=== PATIENT | female | born 1945 | race Caucasian/White ===

== ENCOUNTER 2019-01-12 18:11 | Inpatient (IN) ==
[2019-01-12] MEDS ORDERED: Naloxone 0.4 MG/ML INJ IVP PRN (22:20)
[2019-01-12] MEDS ORDERED: traMADol 50 MG TABLET PO PRN (22:20)
[2019-01-12] MEDS ORDERED: Ondansetron 4 MG/2 ML VIAL IVP PRN (22:20)
[2019-01-12] MEDS ORDERED: Acetaminophen 325 MG TABLET PO PRN (22:20)
[2019-01-12 22:57] LABS: Hemoglobin 12.4 g/dL (11.5-15.4); Mean Corpuscular HGB Conc 31.8 g/dL (31.6-35.5); Mean Corpuscular Hemoglobin 29.3 pg (28.0-33.3); Mean Corpuscular Volume 92.2 fL (83.0-100.0); Platelet Count 317 K/mcL (140-400); Red Blood Count 4.23 M/mcL (3.82-4.97); Red Cell Distribution Width 12.3 % (11.5-14.5)
[2019-01-12 22:58] LABS: Basophils % 0.5 %; Eosinophils # 0.1 K/mcL (0.0-0.6); Eosinophils % 1.6 %; Immature Granulocytes % 0.2 % (0-4); Lymphocytes # 1.3 K/mcL (0.6-4.6); Lymphocytes % 14.9 %; Mean Platelet Volume 9.7 fL (9.4-12.4); Monocytes # 0.5 K/mcL (0.0-1.3); Neutrophils # 6.8 K/mcL (1.6-8.9); Segmented Neutrophils % 76.8 %
[2019-01-12 23:05] LABS: INR 1.2; Prothrombin Time 13.3 Seconds (9.4-12.1)
[2019-01-12] MEDS: *HR* OxyCODONE Immed Rel 5 MG TABLET PO PRN (23:11)
[2019-01-12 23:17] LABS: Alanine Aminotransferase 11 Units/L (7-52); Albumin 3.7 g/dL (3.5-5.7); Albumin/Globulin Ratio 1.2 (1.1-2.2); Alkaline Phosphatase 107 Units/L (34-104); Aspartate Amino Transferase 18 Units/L (13-39); BUN/Creatinine Ratio 23 (6-26); Bilirubin,Total 0.4 mg/dL (0.3-1.0); Blood Urea Nitrogen 12 mg/dL (8-23); Calcium 8.9 mg/dL (8.6-10.3); Carbon Dioxide 35 mEq/L (23-29); Chloride 97 mEq/L (98-107); Chol/HDL Ratio 3.8 (0-4.9); Cholesterol 161 mg/dL (< 200); Globulin 3.1 g/dL (2.4-3.5); Glucose 117 mg/dL (70-105); HDL Cholesterol 42 mg/dL (40-59); LDL Cholesterol,Calculated 102 mg/dL (0-99); Magnesium 1.9 mg/dL (1.6-2.6); Osmolality,Calculated 291 (280-300); Potassium 2.9 mEq/L (3.5-5.1); Sodium 140 mEq/L (136-145); Total Protein 6.8 g/dL (6.4-8.9); Triglycerides 87 mg/dL (< 150); eGFR For Non-African Americans > 60 (> 60)
[2019-01-12] MEDS: Levalbuterol Neb 1.25 MG/3 ML IH SCH (23:37)
[2019-01-13 00:52] LABS: Bilirubin,Urine Negative (Negative); Blood,Urine Trace (Negative); Clarity,Urine Cloudy (Clear); Color,Urine Yellow (Yellow); Glucose,Urine (UA) Normal (Normal); Ketones,Urine 40 mg/dL (Negative); Leukocyte Esterase,Urine Trace (Negative); Nitrite,Urine Negative (Negative); Protein,Urine Negative (Neg-Trace); Specific Gravity,Urine 1.019 (1.010-1.025); Urobilinogen,Urine Normal (Normal)
[2019-01-13 00:56] LABS: Bacteria,Urine Many per hpf (None-Few); Hyaline Casts,Urine None Seen per lpf (None-Few); Squamous Epithelial Cell,Urine Many per lpf (None-Few)
--- NOTE | 2019-01-13 01:17 | Internal Med History&Physical ---
Date of Encounter: 01/12/19 Time of Encounter: 21:30 Internal Medicine - H&P: HPI Chief complaint: Right hip pain Admitted From: Hospital to Hospital Transfer Plans for Post Hospital Care: Home History of present illness: Ms. Kirk is a 73 year old female w/PMH of HTN, neuropathy in bilateral LEs, and COPD presents from [facility] w/CC of right hip pain from fall sustained today while attempting to get out of the shower. Pt. states she tripped and fell on her right side. She denies LOC, being pre-syncopal, or dizzy/lightheaded. Fall occurred at approx. 10:00 a.m. No alleviating factors for the pain. Pt. reports O2 use at home w/nebulizer txs d/t COPD denies BiPAP/CPAP use. Pt. was former smoker who smoked 3 PPD up until 1 year ago. Patient denies history of falls, recent illness, fever, chills, nausea, vomiting, headache, changes in vision, unusual bleeding, chest pain, shortness of breath, cough, chest congestion, abdominal pain, diarrhea, constipation, dizziness, lightheadedness, numbness, tingling, pre-syncope, or syncope. Past Med Surg Social Fam HX - Past Medical History Source: patient, old records reviewed Medical history: COPD, hypertension Additional medical history: back pain Psychiatric history: no psych history - Past Surgical History Surgical History: cholecystectomy, hysterectomy - Social History Smoking Status: Former smoker Packs per day: 3 PPD - Reports quitting 1 year ago Smokeless Tobacco Status: No Alcohol use: none Drug use: none Current living situation: Home, With Family Activity Level: Independent ambulation Recent Out of Country Travel Within the Last 8 Weeks: No Exposure or Possible Exposure to Illness During Travel: No - Family History Father Name: caroline Race: Family Member Ethnicity: Non- Living Status: Age at : 56 Cause of : Broken neck Hx Family Musculoskeletal Disorders: Yes (RA) Mother History Unknown: Yes Race: Family Member Ethnicity: Non- Brother History Unknown: Yes Race: Family Member Ethnicity: Non- Living Status: Still Living Sister Race: Family Member Ethnicity: Non- Living Status: Still Living Hx Family Neurologic Disorders: Yes (Neuropathy in LEs) Internal Medicine - H&P: Meds Allergy/AdvReac Type Severity Reaction Status Date / Time No Known Allergies Allergy Verified 10/11/16 09:43 All Systems PM: A 10-system review of systems was performed and is negative for pertinent findings except as documented above in the HPI. - Constitutional Constitutional: as per HPI, no chills, no fever(s), no night sweats - EENT Eyes: no change in vision, no discharge, no pain, no photophobia Ears: no ear discharge, no ear pain, no tinnitus Nose, mouth and throat: no dysphagia, no nasal discharge, no neck pain, no sore throat - Breasts Breasts: as per HPI - Cardiovascular Cardiovascular ROS IM: as per HPI, dyspnea (R/t COPD), no chest pain, no diaph oresis, no lightheadedness, no palpitations, no syncope - Respiratory Respiratory: as per HPI, dyspnea, no cough, no wheezing, no excessive phlegm production - Gastrointestinal Gastrointestinal: no abdominal pain, no diarrhea, no hematemesis, no hematochezia, no melena, no nausea, no vomiting - Genitourinary Genitourinary: no change in urinary stream, no dysuria, no flank pain, no hematuria Menstruation: as per HPI, post hysterectomy - Musculoskeletal Musculoskeletal ROS IM: no numbness, no tingling - Integumentary Integumentary IM: no rash, no unusual bruising - Neurological Neurological ROS: no confusion, no convulsions, no focal weakness, no numbness, no tingling, no tremor(s) - Psychiatric Psychiatric: as per HPI - Endocrine Endocrine IM: as per HPI - Hematologic/Lymphatic Hematologic/Lymphatic: no easy bruising - Allergic/Immunologic Allergic/Immunologic: as per HPI - Constitutional Vitals: Temp Pulse Resp BP Pulse Ox 98.5 F 98 16 159/89 92 01/12/19 21:32 01/12/19 21:32 01/12/19 21:32 01/12/19 21:32 01/12/19 21:32 General appearance: Present: cooperative, mild distress (Right hip pain), A&O X 3, pleasant, obese, answers questions appropriately Exam: Patient examined at bedside. Pt. resting in bed reporting mild pain in right hip r/t fall sustained today. Denies falls hx. Pt. denies any other sx or complaints at this time. VS: 98.5F temp, HR 98, RR 16, BP 159/89, SPO2 92% on 2 L via nasal cannula. - Head Head exam: Present: atraumatic, normocephalic - Eye Eye exam: Present: PERRL, conjuntiva pink, sclera anicteric Pupils: Present: PERRL - ENT ENT exam: Present: normal exam - Neck Neck exam general surgery: Present: normal inspection, supple, trachea midline. Absent: lymphadenopathy - Respiratory Respiratory exam: Present: CTAB. Absent: accessory muscle use, rales, rhonchi, wheezes - Cardiovascular Cardiovascular exam: Present: RRR, +S1, +S2. Absent: diastolic murmur, gallop, rubs, systolic murmur - GI/Abdominal GI/Abdominal exam: Present: normal bowel sounds, soft, no peritoneal signs. Absent: distended, tenderness - Rectal Rectal exam: Present: deferred - Additional comments: exam deferred. - Extremities Exam Extremities exam: Present: warm, radial pulses palpable and symmetrical. Absent: calf tenderness, cyanotic, pedal edema - Back Exam Back exam: Present: normal inspection - Neurological Exam Neurological exam: Present: alert, CN II-XII intact, oriented X3, no focal deficits. Absent: pronater drift, facial droop, speech deficit - Psychiatric Psychiatric exam: Present: normal affect, normal mood - Skin Skin exam: Present: dry, intact Internal Med - H&P Results - Labs CBC & Chem 7: 01/12/19 22:46 01/12/19 22:46 Labs: Short CBC 01/12/19 Range/Units 22:46 WBC 8.8 (4.3-11.1) K/mcL Hgb 12.4 (11.5-15.4) g/dL Hct 39.0 (35.3-44.9) % Plt Count 317 (140-400) K/mcL Neutrophils # 6.8 (1.6-8.9) K/mcL BMP 01/12/19 22:46 Sodium 140 Potassium 2.9 L Chloride 97 L Carbon Dioxide 35 H BUN 12 Creatinine 0.53 L Glucose 117 H Calcium 8.9 Liver Function 01/12/19 Range/Units 22:46 Total Bilirubin 0.4 (0.3-1.0) mg/dL AST 18 (13-39) Units/L ALT 11 (7-52) Units/L Alkaline Phosphatase 107 H (34-104) Units/L Albumin 3.7 (3.5-5.7) g/dL Urine 01/12/19 Range/Units 23:29 Urine Color Yellow (Yellow) Urine Clarity Cloudy A (Clear) Urine pH 6.0 (5.0-8.0) pH Units Ur Specific Pol[place] 1.019 (1.010-1.025) Urine Protein Negative (Neg-Trace) mg/dL Urine Glucose (UA) Normal (Normal) mg/dL - EKG Data EKG shows normal: sinus rhythm - EKG Data Prior EKG available for review: yes EKG comments: 01/13/19 01:27 EKG dated 01/12/19 at [place] shows sinus rhythm with atrial premature complex and minimal ST depression in anterolateral leads. EKG dated 01/12/19 at [facility] shows sinus rhythm with incomplete RBBB and moderate ST depression. - Impressions ITS Impressions Chest X-Ray 01/12/19 22:51 IMPRESSION: No acute abnormality D/ / Ed Oliver / Ed Oliver Interpreting Provider: Ed Oliver - Diagnostic Studies Chest x-ray Additional comments: Impressions Chest X-Ray 01/12/19 22:51 IMPRESSION: No acute abnormality D/ / Ed Oliver / Ed Oliver Interpreting Provider: Ed Oliver - Assessment and Plan (1) Right femoral fracture Current Visit: Yes Status: Acute Assessment and plan: Acute right femoral fx sustained today while attempting to get out of the shower. Pt. states she tripped and fell on her right side. She denies LOC, being pre-syncopal, or dizzy/lightheaded. Fall occurred at approx. 10:00 a.m. Imaging from [facility] today shows acute closed traumatic right femoral neck fracture with lateral displacement, overriding, and severe varus angulation. Hip joint space is preserved. Pt. reports mild pain in right hip. Stair-step pain medication for pain mgmt. Echocardiogram ordered stat for a.m. d/t pts. need for surgical clearance. EKG shows sinus rhythm with incomplete RBBB and moderate ST depression. Revised cardiac risk index for preoperative risk for this patient is 3.9% risk of , [place], or cardiac arrest paced on surgery not being high risk, no history of ischemic heart disease, no history of CHF, no history of cerebrovascular disease, and no preoperative treatment with insulin, and no preoperative creatinine greater than 2 mg/dL. NPO. Bed Rest. PT/OT consults ordered for rehabilitation assessment. Ortho consult ordered and discussed w/Dr. Saunders w/plan for surgical intervention in a.m. following Echocardiogram and I appreciate the consult and recommendations. Pt. is moderate risk for further morbidity and complications based on current rt. femoral fx, former smoker, HTN, HLD, COPD, obesity, and age. Inpatient. Qualifiers: Encounter type: initial encounter Femur location: base of neck Fracture type: closed Qualified Code(s): S72.041A - Displaced fracture of base of neck of right femur, initial encounter for closed fracture (2) HTN (hypertension) Current Visit: Yes Status: Chronic Assessment and plan: Hx of chronic HTN. Monitor pt. and VS. Continue pts. Losartan when reconciled. IVP hydralazine 10 mg every 6 hours when necessary with parameters in the meantime. Qualifiers: Hypertension type: essential hypertension Qualified Code(s): I10 - Essential (primary) hypertension (3) Neuropathy Current Visit: Yes Status: Chronic Assessment and plan: Hx of bilateral neuropathy in bilateral LEs. Pt. does not currently take medication for this. One-time order for Zanaflex placed to reduce muscle spasms r/t hip fx. Stair-step pain medications ordered for pain mgmt. (4) COPD (chronic obstructive pulmonary disease) Current Visit: Yes Status: Chronic Assessment and plan: Hx of chronic COPD. Stable. Xopenex IH 1.25 Q6HR. Supplemental O2 w/titration and SpO2 monitoring. Qualifiers: COPD type: emphysema Emphysema type: unspecified Qualified Code(s): J43.9 - Emphysema, unspecified (5) DVT prophylaxis Current Visit: Yes Status: Acute Assessment and plan: Bilateral SCDs on LEs for DVT prophylaxis d/t planned surgery in the a.m. - Time Spent With Patient Total time spent is greater than 50% in coordination of care (as documented) at patient's floor/unit and/or counseling patient: Greater than 35 minutes
[2019-01-13] MEDS ORDERED: tiZANidine 4 MG TABLET PO ONE (01:35)
[2019-01-13] MEDS: Levalbuterol Neb 1.25 MG/3 ML IH SCH ×2 (03:59→11:07)
[2019-01-13] MEDS: *HR* OxyCODONE Immed Rel 5 MG TABLET PO PRN (06:39)
[2019-01-13] MEDS ORDERED: Potassium Chloride 40 MEQ, Lidocaine 1% 2 ML in D5% in Water 500 ML IVPB ONE (07:37)
[2019-01-13] MEDS ORDERED: Perflutren Lipid Microsphere 1.3 ML in 0.9 % Sodium Chloride 8.7 ML IVP ONE (08:05)
--- NOTE | 2019-01-13 09:29 | Anesthesia Evaluation PreOp ---
Date of Encounter: 01/13/19 Time of Encounter: 09:38 - Past History Planned Operation: R-Otilio Hip Cardiac History: HTN, Hyperlipidemia Pulmonary History: Former smoker (3ppd until 1 year ago), COPD [employer]PER[employer] History: Other (BLE Neuropathy. + mild Dementia) Other Medical History: Denies Any Significant HX Anesthesia History: No Prior Anesthetic Complications, Past Anesthesia (Nelly, Hyster, R-shoulder) Alcohol Use: none Drug use: none Medications and Allergies Allergy/AdvReac Type Severity Reaction Status Date / Time No Known Allergies Allergy Verified 10/11/16 09:43 - Meds/Allergy Pre-op Review Medications Reviewed: Yes Allergies Reviewed: Yes Beta Blockers on Current Med List: No Anesthesia Results - Labs 01/12/19 22:46 01/12/19 22:46 Impressions Chest X-Ray 01/12/19 22:51 IMPRESSION: No acute abnormality D/ / Ed Oliver / Ed Oliver Interpreting Provider: Ed Oliver Laboratory Results - Imaging Additional studies: ECHO 01/13/2019 - EV/EV echocardiogram w enhance Impressions: Technically sub-optimal due to poor echocardiographic windows. LVEF 60-65%. Normal left ventricular diastolic function. Mild concentric left ventricular hypertrophy. The right ventricle was not well visualized, normal right ventricular function. No obvious significant valvular dysfunction No evidence of pulmonary hypertension. Anesthesia Exam Vital Signs Temp Pulse Resp BP Pulse Ox 01/13/19 08:15 98.6 F 90 15 92 01/13/19 04:45 98.4 F 98 16 141/78 94 01/13/19 04:00 14 93 01/12/19 21:32 98.5 F 98 16 159/89 92 Intake and Output 01/12/19 01/13/19 01/13/19 23:59 07:59 15:59 Intake Total 0 / 0 Output Total 450 / 450 Balance -450 / -450 Intake: Oral 0 / 0 Output: Catheter 450 / 450 Other: Weight 79.9 kg Height: 5'6" Weight: 176# BMI = 28 NPO (# of Hours): MNOc - HEENT Pupil (Motor): Pupils equal, EOMI Mallampati: II Teeth: Edentulous Oral Opening: Greater than 3 - [employer] LOC: Oriented [employer] Motor: Normal RUE, Normal LUE, Normal LLE, Normal Face, Deficit RLE [employer] Sensory: Normal: RUE, LUE, RLE, LLE, Face - Cardiac Rhythm: Regular Murmur: None - Pulmonary Breath Sounds: bilateral Clear Respiratory Effort: Symmetrical Anesthesia Assess/Plan ASA Score: 3 (COPD, HTN, Neuropathy) Level of consciousness: Cooperative, Oriented, Tranquil Anesthetic Plan: General (GA as back up plan), Spinal Reason for No Neuroaxial/Regional Block: Patient refusal Monitoring Plan: Standard Monitors Recovery Plan: PACU Anes Supervising Prov Stmt: Pt seen/evaluated, R&B discussed, questions answered and consent obtained. Parviz Telles MD
--- NOTE | 2019-01-13 09:49 | Orthopedic Consult Note ---
Date of Encounter: 01/13/19 Time of Encounter: 09:44 Assessment and Plan (1) Right femoral fracture Current Visit: Yes Status: Acute I did have a long discussion with the patient regarding the diagnosis. She has a right displaced femoral neck fracture. My recommendation is for right hip hemiarthroplasty in order to stabilize the right hip, provide pain control, and help facilitate early mobilization. The risks discussed included but were not limited to stiffness, bleeding, infection, blood clots, damage to neurovascular structures, tendons, ligaments, and bone. Also discussed was the risk of continued symptoms and possible need for further procedures. She is aware the risk of dislocation, periprosthetic fracture, and prosthetic infection. I did discuss the anesthesia risks including stroke, heart attack, and . I did discuss the reasonable, foreseeable postoperative course with the patient. The patient did wish to proceed and consent was obtained. I have reviewed each of the pertinent components of this chart and any other pe rtinent medical component(s) including but not limited to pertinent application of the chief complaint, history of present illness, current medication, medical history, allergies, family history, medical history, surgical history, social history, review of systems, vital signs, and any other portion of the pertinent patient medical record directly or indirectly involved with this patient care that is pertinent based on my medical decision process. VAISHALI Cruz Qualifiers: Encounter type: initial encounter Femur location: base of neck Fracture type: closed Qualified Code(s): S72.041A - Displaced fracture of base of neck of right femur, initial encounter for closed fracture History of Present Illness HPI: Ms. Kirk is a 73 year old female admitted to [facility] after a fall that resulted in a right displaced femoral neck fracture. She was transferred from an outside facility. She complains of isolated sharp and achy pain localized to the right hip, worse with use and movement of the right hip and better with rest. No associated numbness, tingling, or any other associated signs or symptoms. She denies bilateral upper extremity pain and left lower extremity pain. Past Med Surg Social Fam HX - Past Medical History Medical history: COPD, hypertension Additional medical history: back pain Psychiatric history: no psych history - Past Surgical History Surgical History: cholecystectomy, hysterectomy - Social History Smoking Status: Former smoker Packs per day: 3 PPD - Reports quitting 1 year ago Smokeless Tobacco Status: No Alcohol use: none Drug use: none - Family History Father Name: caroline Race: Family Member Ethnicity: Non- Living Status: Age at : 56 Cause of : Broken neck Hx Family Musculoskeletal Disorders: Yes (RA) Mother History Unknown: Yes Race: Family Member Ethnicity: Non- Brother History Unknown: Yes Race: Family Member Ethnicity: Non- Living Status: Still Living Sister Race: Family Member Ethnicity: Non- Living Status: Still Living Hx Family Neurologic Disorders: Yes (Neuropathy in LEs) Medications and Allergies Allergy/AdvReac Type Severity Reaction Status Date / Time No Known Allergies Allergy Verified 10/11/16 09:43 All Systems Reviewed: Constitutional -The patient denies any fevers, chills, or feelings of illness Neurologic -The patient denies any numbness, tingling, or burning pains Physical Exam - Constitutional Vitals: Temp Pulse Resp BP Pulse Ox 98.6 F 90 15 141/78 92 01/13/19 08:15 01/13/19 08:15 01/13/19 08:15 01/13/19 04:45 01/13/19 08:15 Constitutional -Vitals reviewed -The patient is well developed and well nourished. -Mood is pleasant. -The patient is well groomed. Psychiatric -The patient is fully alert and oriented x 3. Respiratory: -Respiratory effort normal Abdomen: -Soft abdomen -Non tender -Non distended: Left upper extremity: -No deformities. The overlying skin is intact. No obvious signs of acute trauma. -No tenderness to palpation throughout. -No significant pain with passive motion of the shoulder, elbow, wrist, and fingers within the limits of the bed. -Able to make an "OK" sign, cross the index and long fingers, and extend the thumb. -Sensation grossly intact to light touch throughout the median, radial, and ulnar distributions. -Radial pulse is present; Fingers have good capillary refill. Right upper extremity: -No deformities. The overlying skin is intact. No obvious signs of acute trauma. -No tenderness to palpation throughout. -No significant pain with passive motion of the shoulder, elbow, wrist, and fingers within the limits of the bed. -Able to make an "OK" sign, cross the index and long fingers, and extend the thumb. -Sensation grossly intact to light touch throughout the median, radial, and ulnar distributions. -Radial pulse is present; Fingers have good capillary refill. Left lower extremity: -No deformities. The overlying skin is intact. No obvious signs of acute trauma. -No tenderness to palpation throughout. -No pain with passive motion of the hip, knee, ankle, and toes within the limits of the bed. -No pain with axial loading of the thigh. -Able to dorsiflex and plantarflex the ankle and toes. -Sensation is grossly intact to light touch throughout the sural, saphenous, superficial peroneal, and deep peroneal distributions. -Toes have good capillary refill. Right lower extremity: -The extremity is shortened and externally rotated. The overlying skin is intact. -There is tenderness in the groin region as well as the proximal lateral thigh. -I did not range the hip due to the known fracture. -No tenderness along the distal thigh, leg, ankle, foot, or toes. -Able to dorsiflex and plantarflex the ankle and toes. -Sensation is grossly intact to light touch throughout the sural, saphenous, superficial peroneal, and deep peroneal distributions. -Toes have good capillary refill. Diagnostic Imaging: I did personally review and interpret x-rays of the right hip show a displaced right femoral neck fracture. X-rays of the right knee show a well fixed total knee implant. Results - Labs Result Diagrams: 01/12/19 22:46 01/12/19 22:46 Labs: Abnormal lab results PT 13.3 Seconds (9.4-12.1) H 01/12/19 22:46 Potassium 2.9 mEq/L (3.5-5.1) L 01/12/19 22:46 Chloride 97 mEq/L (98-107) L 01/12/19 22:46 Carbon Dioxide 35 mEq/L (23-29) H 01/12/19 22:46 0.53 mg/dL (0.60-1.20) L 01/12/19 22:46 Glucose 117 mg/dL (70-105) H 01/12/19 22:46 107 Units/L (34-104) H 01/12/19 22:46 LDL Cholesterol, Calc 102 mg/dL (0-99) H 01/12/19 22:46 Cloudy (Clear) A 01/12/19 23:29 40 mg/dL (Negative) H 01/12/19 23:29 Trace (Negative) H 01/12/19 23:29 Ur Leukocyte Esterase Trace (Negative) H 01/12/19 23:29 5-15 per hpf (0-3) H 01/12/19 23:29 5-15 per hpf (0-3) H 01/12/19 23:29 Ur Squamous Epith Cells Many per lpf (None-Few) H 01/12/19 23:29 Many per hpf (None-Few) H 01/12/19 23:29 Ur Culture Indicated? YES (NO) A 01/12/19 23:29 H & H 01/12/19 Range/Units 22:46 Hgb 12.4 (11.5-15.4) g/dL Hct 39.0 (35.3-44.9) % All other labs normal. Consult Discharge Plan - Plan Referrals: Conrado Romo MD [Primary Care Provider] -
[2019-01-13] MEDS ORDERED: *HR* FentaNYL (PF) 100 MCG/2 ML VIAL ONE ×2 (10:46→12:37)
[2019-01-13] MEDS ORDERED: *HR* Propofol 200 MG/20 ML VIAL IVP ONE (10:46)
[2019-01-13] MEDS ORDERED: *HR* Succinylcholine 200 MG/10 ML VIAL IVP ONE (10:49)
[2019-01-13] MEDS ORDERED: Lidocaine -MPF 4% 5 ML AMPUL ONE (10:50)
[2019-01-13] MEDS ORDERED: Ondansetron 4 MG/2 ML VIAL ONE (10:51)
[2019-01-13] MEDS ORDERED: Dexamethasone 4 MG/ML VIAL ONE (10:51)
--- NOTE | 2019-01-13 11:07 | Internal Med Progress Note ---
Hospitalist Progress Note - Encounter Date of Encounter: 01/13/19 Time of Encounter: 10:15 - Subjective Interval History: Complains of right hip pain that is better controlled after medications. No chest pain, shortness of breath, cough, sputum production, fever/chills, nausea/vomiting, dysuria, urinary frequency, orthopnea, PND, or palpitation. No personal history of cardiac disease. - Exam Vitals: Temp Pulse Resp BP Pulse Ox 98.6 F 90 15 141/78 92 01/13/19 08:15 01/13/19 08:15 01/13/19 08:15 01/13/19 04:45 01/13/19 08:15 Exam: General: Alert and oriented, not in acute distress. Cardiovascular:Normal S1 & S2, No JVD. Pulse regular. Lungs: clear to auscultation, no wheezes/rales Abdomen:Soft, non-tender, no rigidity. Extremities: RLE shortened and externally rotated with tenderness along the right groin and lateral thigh regions. Neurovascular intact distally Neurological:Normal cognition and motor skills. Non-focal - Assessment and Plan (1) Right femoral fracture Current Visit: Yes Status: Acute Assessment and Plan: Following a mechanical fall, XR done at the OSH shows displaced R femoral neck fracture appreciate orthop input, for R hip hemiarthroplasty today. Keep NPO despite urinalysis findings, denies any symptoms of cystitis hence will hold off on abx on my end. Defer pre-op abx to ortho (2) HTN (hypertension) Current Visit: Yes Status: Chronic Assessment and Plan: resume home meds when reconciled. IVP hydralazine 10 mg every 6 hours when necessary with parameters in the meantime. (3) COPD (chronic obstructive pulmonary disease) Current Visit: Yes Status: Chronic Assessment and Plan: Hx of chronic COPD. not in exacerbation, chest x-ray without consolidation. PRN duoneb (4) Neuropathy Current Visit: Yes Status: Chronic (5) DVT prophylaxis Current Visit: Yes Status: Acute Assessment and Plan: SQ heparin post-operatively - Time Spent with Patient Total time spent is greater than 50% in coordination of care (as documented) at patient's floor/unit and/or counseling patient: 25 - 35 minutes Plan of Care Discussed with: patient Internal Medicine: Result - Labs CBC & Chem 7: 01/12/19 22:46 01/12/19 22:46 Labs: Short CBC 01/12/19 Range/Units 22:46 WBC 8.8 (4.3-11.1) K/mcL Hgb 12.4 (11.5-15.4) g/dL Hct 39.0 (35.3-44.9) % Plt Count 317 (140-400) K/mcL Neutrophils # 6.8 (1.6-8.9) K/mcL BMP 01/12/19 22:46 Sodium 140 Potassium 2.9 L Chloride 97 L Carbon Dioxide 35 H BUN 12 Creatinine 0.53 L Glucose 117 H Calcium 8.9 Liver Function 01/12/19 Range/Units 22:46 Total Bilirubin 0.4 (0.3-1.0) mg/dL AST 18 (13-39) Units/L ALT 11 (7-52) Units/L Alkaline Phosphatase 107 H (34-104) Units/L Albumin 3.7 (3.5-5.7) g/dL Urine 01/12/19 Range/Units 23:29 Urine Color Yellow (Yellow) Urine Clarity Cloudy A (Clear) Urine pH 6.0 (5.0-8.0) pH Units Ur Specific [place] 1.019 (1.010-1.025) Urine Protein Negative (Neg-Trace) mg/dL Urine Glucose (UA) Normal (Normal) mg/dL - ABG Interpretation ABG results: PT/INR, D-dimer PT 13.3 Seconds (9.4-12.1) H 01/12/19 22:46 - Impressions Impressions Chest X-Ray 01/12/19 22:51 IMPRESSION: No acute abnormality D/ / Ed Oliver / Ed Oliver Interpreting Provider: Ed Oliver Echocardiogram 01/13/19 22:18 Impressions: Technically sub-optimal due to poor echocardiographic windows. LVEF 60-65%. Normal left ventricular diastolic function. Mild concentric left ventricular hypertrophy. The right ventricle was not well visualized, normal right ventricular function. No obvious significant valvular dysfunction No evidence of pulmonary hypertension. Left Ventricular Wall Motion: Rest Echo Findings All wall segments showed normal motion. Findings: Study Quality * Technically sub-optimal due to poor echocardiographic windows. ECG Findings * Normal sinus rhythm. Left Ventricle * LVEF 60-65%. * Definity echo contrast was used. * Normal left ventricular diastolic function. * Normal LV chamber size and function. * Mild concentric left ventricular hypertrophy. Right Ventricle * The right ventricle was not well visualized, normal right ventricular function. Left Atrium * Normal left atrial size. Right Atrium * Normal right atrial size. Interatrial Septum * Interatrial septum not well evaluated. Aortic Valve * Aortic valve not well visualized. * No aortic regurgitation. * No aortic stenosis. Mitral Valve * No mitral regurgitation. * No mitral stenosis. * Mitral valve not well visualized. Tricuspid Valve * Tricuspid valve not well visualized. * Trace tricuspid regurgitation. * No tricuspid stenosis. * No evidence of pulmonary hypertension. Pulmonic Valve * Pulmonic valve is not well visualized. Aorta * Normally sized aortic root. Pericardium * The pericardium appears normal. IVC * Normal IVC dimensions and inspiratory collapse. Pulmonary Artery * Pulmonary artery not well visualized. Consult Discharge Plan - Plan Referrals: Conrado Romo MD [Primary Care Provider] - (1) Right femoral fracture Qualifiers: Encounter type: initial encounter Femur location: base of neck Fracture type: closed Qualified Code(s): S72.041A - Displaced fracture of base of neck of right femur, initial encounter for closed fracture (2) HTN (hypertension) Qualifiers: Hypertension type: essential hypertension Qualified Code(s): I10 - Essential (primary) hypertension (3) COPD (chronic obstructive pulmonary disease) Qualifiers: COPD type: emphysema Emphysema type: unspecified Qualified Code(s): J43.9 - Emphysema, unspecified
[2019-01-13] MEDS ORDERED: Ipratropium/Albuterol Neb 3 ML IH PRN ×2 (11:11→16:05)
[2019-01-13] MEDS ORDERED: CeFAZolin Syr 2,000MG/20 ML 2,000 MG/20 ML SYRINGE IVPB ONE (12:00)
[2019-01-13] MEDS ORDERED: Ethanol\\Acetic Acid\\Na Ace\\Ben 1,000 ML IRRIG.SOLN IR ONE (12:34)
[2019-01-13] MEDS ORDERED: Vancomycin 1,000 MG VIAL ONE (12:34)
[2019-01-13] MEDS ORDERED: Propofol 500 MG/50 ML INFUS..BTL ONE (12:38)
[2019-01-13] MEDS ORDERED: Acetaminophen IV 1,000 MG/100 ML INFUS..BTL ONE (12:52)
[2019-01-13] MEDS ORDERED: Acetaminophen IV 1,000 MG/100 ML INFUS..BTL IVPB ONE (13:25)
[2019-01-13] MEDS ORDERED: *HR* HYDROMORPHONE 2 MG/ML VIAL ONE (15:02)
[2019-01-13] MEDS ORDERED: *HR* HYDROmorphone 2 MG/ML SYRINGE ONE (15:29)
[2019-01-13] MEDS: *HR* HYDROmorphone 2 MG/ML SYRINGE IVP PRN ×2 (15:30→15:40)
[2019-01-13] MEDS ORDERED: Ondansetron 4 MG/2 ML VIAL IVP PRN (16:05)
[2019-01-13] MEDS ORDERED: Naloxone 0.4 MG/ML INJ IVP PRN (16:05)
[2019-01-13] MEDS ORDERED: Acetaminophen 325 MG TABLET PO PRN (16:05)
--- NOTE | 2019-01-13 16:50 | Anesthesia Evaluation Post Op ---
Date of Encounter: 01/13/19 Time of Encounter: 15:30 - Vital Signs Vital Signs: Vital Signs Temp Pulse Resp BP Pulse Ox 01/13/19 15:57 98.2 F 92 16 123/80 93 01/13/19 15:47 92 16 142/78 93 01/13/19 15:37 98.3 F 95 16 120/68 94 01/13/19 15:27 94 16 132/107 93 01/13/19 15:17 89 20 132/102 93 01/13/19 15:07 98.2 F 91 18 148/96 99 01/13/19 11:09 18 94 01/13/19 08:15 98.6 F 90 15 92 01/13/19 04:45 98.4 F 98 16 141/78 94 01/13/19 04:00 14 93 01/12/19 21:32 98.5 F 98 16 159/89 92 Intake and Output 01/13/19 01/13/19 01/13/19 07:59 15:59 23:59 Intake Total 120 / 120 Output Total 850 / 850 Balance -730 / -730 Intake: IV Fluids 120 / 120 Ofirmev 1,000 mg/100 ml 1,000 100 / 100 mg In 100 ml @ 400 mls/hr IVPB ONCE ONE Rx#:[id number] Ancef Syringe 2,000 MG/20 ML 2, 20 / 20 000 mg In 20 ml @ 200 mls/hr IVPB PREOP ONE Rx#:[id number] Oral 0 / 0 Output: Estimated Blood Loss 250 / 250 Urine Amount (Catheter) 150 / 150 Catheter 450 / 450 Other: Meal Breakfast Percent of Meal Consumed 0% - Lungs Lungs: Clear Ascult./Percussion - Airway Airway: Non-obstructed - Cardiovascular Regular Rate, Baseline Rhythm - Mental Status Mental Status: Alert & Oriented, Answers Appropriately - Pain Pain Scale: 3 Pain Scale used: Numeric (1 - 10) - Nausea Vomiting Nausea Vomiting: Not Present - Hydration Hydration: Ice chips, Lozano catheter - Discharge PostOp Status: Transfer Patient to floor Anes Supervising Prov Stmt: Pt seen/evaluated, VSS And has met criteria for discharge to floor. - MD Elfego
[2019-01-13] MEDS ORDERED: *HR* Promethazine 25 MG/ML VIAL IVP PRN (21:20)
--- NOTE | 2019-01-13 21:26 | Event Note ---
Date of Encounter: 01/13/19 Time of Encounter: 21:20 Patient has UTI. IVPB levaquin 750 mg daily ordered to start now for UTI infection. Zofran DCd d/t risk for QT prolongation. IVP Phenergan replaced for N/V. UTI infection. HR >90. Sepsis risk. Routine lactic acid ordered and will add IV fluids if lactic is elevated. Nurse instructed to continue monitoring the pt. very closely and alert me immediately of any adverse changes.
[2019-01-13] MEDS ORDERED: Levofloxacin 750 MG/150 ML 750 MG/150 ML BAG IVPB SCH (21:30)
[2019-01-14] MEDS ORDERED: Levofloxacin 750 MG/150 ML 750 MG/150 ML BAG IVPB SCH (03:00)
[2019-01-14 05:00] LABS: Hematocrit 33.8 % (35.3-44.9); Mean Corpuscular Hemoglobin 29.7 pg (28.0-33.3); Mean Corpuscular Volume 92.9 fL (83.0-100.0); Mean Platelet Volume 10.1 fL (9.4-12.4); Platelet Count 333 K/mcL (140-400); Red Blood Count 3.64 M/mcL (3.82-4.97); Red Cell Distribution Width 12.3 % (11.5-14.5)
[2019-01-14 05:01] LABS: Hemoglobin 10.8 g/dL (11.5-15.4)
[2019-01-14 05:23] LABS: BUN/Creatinine Ratio 30 (6-26); Blood Urea Nitrogen 14 mg/dL (8-23); Calcium 8.7 mg/dL (8.6-10.3); Carbon Dioxide 32 mEq/L (23-29); Chloride 99 mEq/L (98-107); Glucose 129 mg/dL (70-105); Osmolality,Calculated 294 (280-300); Potassium 3.2 mEq/L (3.5-5.1); Sodium 141 mEq/L (136-145); eGFR For Non-African Americans > 60 (> 60)
[2019-01-14] MEDS: Potassium Chloride Elixir 20 MEQ/15 ML UDC PO SCH ×2 (09:22→21:46)
[2019-01-14] MEDS: *HR* OxyCODONE Immed Rel 5 MG TABLET PO PRN ×2 (09:42→18:38)
--- NOTE | 2019-01-14 12:31 | Internal Med Progress Note ---
Hospitalist Progress Note - Encounter Date of Encounter: 01/14/19 Time of Encounter: 11:00 - Subjective Interval History: Underwent right hip hemiarthroplasty uneventfully yesterday. Denies any significant pain other than expected post-op discomfort over R hip. No chest pain, cough, or shortness of breath - Exam Vitals: Temp Pulse Resp BP Pulse Ox 98.2 F 92 17 118/72 95 01/14/19 10:10 01/14/19 10:10 01/14/19 10:10 01/14/19 10:10 01/14/19 10:10 Exam: General: Alert and oriented, not in acute distress. Cardiovascular:Normal S1 & S2, No JVD. Pulse regular. Lungs: clear to auscultation, no wheezes/rales Abdomen:Soft, non-tender, no rigidity. Extremities: R hip dressing c/d/i Neurological:Normal cognition and motor skills. Non-focal - Assessment and Plan (1) Right femoral fracture Current Visit: Yes Status: Acute Assessment and Plan: Following a mechanical fall, XR done at the OSH shows displaced R femoral neck fracture s/p R hip hemiarthroplasty, POD #1 despite urinalysis findings, denies any symptoms of cystitis but was started on levaquin overnight. Pt already received ancef as pre-op medicine and do not need any further abx especially when the suspicion for UTI is not high. Urine culture also -ve. D/c levaquin (2) HTN (hypertension) Current Visit: Yes Status: Chronic Assessment and Plan: normotensive without meds (3) COPD (chronic obstructive pulmonary disease) Current Visit: Yes Status: Chronic Assessment and Plan: Hx of chronic COPD. not in exacerbation, chest x-ray without consolidation. PRN duoneb (4) Neuropathy Current Visit: Yes Status: Chronic (5) DVT prophylaxis Current Visit: Yes Status: Acute Assessment and Plan: SQ hep - Time Spent with Patient Total time spent is greater than 50% in coordination of care (as documented) at patient's floor/unit and/or counseling patient: 25 - 35 minutes Plan of Care Discussed with: patient Internal Medicine: Result - Labs CBC & Chem 7: 01/14/19 04:17 01/14/19 04:17 Labs: Short CBC 01/14/19 Range/Units 04:17 WBC 9.7 (4.3-11.1) K/mcL Hgb 10.8 L D (11.5-15.4) g/dL Hct 33.8 L (35.3-44.9) % Plt Count 333 (140-400) K/mcL BMP 01/14/19 04:17 Sodium 141 Potassium 3.2 L Chloride 99 Carbon Dioxide 32 H BUN 14 Creatinine 0.46 L Glucose 129 H Calcium 8.7 - ABG Interpretation ABG results: PT/INR, D-dimer PT 13.3 Seconds (9.4-12.1) H 01/12/19 22:46 - Impressions Impressions Hip X-Ray 01/13/19 15:01 IMPRESSION: No acute complications status post right hip hemiarthroplasty. D/ / Gregorio Madrigal MD / Gregorio Madrigal MD Interpreting Provider: Gregorio Madrigal MD Consult Discharge Plan - Plan Referrals: Conrado Romo MD [Primary Care Provider] - (1) Right femoral fracture Qualifiers: Encounter type: initial encounter Femur location: base of neck Fracture type: closed Qualified Code(s): S72.041A - Displaced fracture of base of neck of right femur, initial encounter for closed fracture (2) HTN (hypertension) Qualifiers: Hypertension type: essential hypertension Qualified Code(s): I10 - Essential (primary) hypertension (3) COPD (chronic obstructive pulmonary disease) Qualifiers: COPD type: emphysema Emphysema type: unspecified Qualified Code(s): J43.9 - Emphysema, unspecified
[2019-01-14] MEDS: Aspirin Enteric Coated 325 MG Tablet PO SCH ×2 (15:25→21:45)
[2019-01-14] MEDS: *HR* Heparin 5,000 UNIT/ML VIAL SQ SCH (17:39)
--- NOTE | 2019-01-14 19:12 | Orthopedics Progress Note ---
Date of Encounter: 01/14/19 Time of Encounter: 09:00 - Assessment and Plan (1) Right femoral fracture Current Visit: Yes Status: Acute Subjective Interval history: S: Patient is seen today and has no complaints. O: Afebrile and vital signs are stable Operative extremity dressing is clean, dry, and intact. Neurovascularly intact distally A: Hip hemiarthroplasty P: Resume postoperative care Objective Vital signs: Vital Signs Temp Pulse Resp BP Pulse Ox 01/14/19 14:31 98.4 F 99 16 119/84 96 01/14/19 10:10 98.2 F 92 17 118/72 95 01/14/19 06:39 99.0 F 94 16 129/79 94 01/14/19 03:04 98.5 F 92 16 125/76 93 01/13/19 22:54 99.0 F 91 14 122/70 93 01/13/19 19:16 98.5 F 101 16 135/85 101 Intake and Output 01/14/19 01/14/19 01/14/19 07:59 15:59 23:59 Intake Total 150 / 150 0 / 150 Output Total 150 / 475 325 / 475 Balance 0 / -325 -325 / -325 Intake: IV Fluids 150 / 150 Levaquin Premix 750mg/150 mL 150 / 150 750 mg In 150 ml @ 100 mls/hr IVPB Q24H [facility] Rx#:[id number] Oral 0 / 0 0 / 0 Output: Catheter 150 / 475 325 / 475 Other: Meal Breakfast Percent of Meal Consumed 0% Stool Size Moderate Stool Consistency formed Stool Color Brown # Bowel Movements 1 Weight 80.86 kg Patient Weight 01/14/19 23:59 Weight 80.86 kg - Labs CBC & BMP: 01/14/19 04:17 01/14/19 04:17 Labs: Abnormal lab results RBC 3.64 M/mcL (3.82-4.97) L 01/14/19 04:17 Hgb 10.8 g/dL (11.5-15.4) L D 01/14/19 04:17 Hct 33.8 % (35.3-44.9) L 01/14/19 04:17 PT 13.3 Seconds (9.4-12.1) H 01/12/19 22:46 Potassium 3.2 mEq/L (3.5-5.1) L 01/14/19 04:17 Chloride 97 mEq/L (98-107) L 01/12/19 22:46 Carbon Dioxide 32 mEq/L (23-29) H 01/14/19 04:17 0.46 mg/dL (0.60-1.20) L 01/14/19 04:17 30 (6-26) H 01/14/19 04:17 Glucose 129 mg/dL (70-105) H 01/14/19 04:17 107 Units/L (34-104) H 01/12/19 22:46 LDL Cholesterol, Calc 102 mg/dL (0-99) H 01/12/19 22:46 Cloudy (Clear) A 01/12/19 23:29 40 mg/dL (Negative) H 01/12/19 23:29 Trace (Negative) H 01/12/19 23:29 Ur Leukocyte Esterase Trace (Negative) H 01/12/19 23:29 5-15 per hpf (0-3) H 01/12/19 23:29 5-15 per hpf (0-3) H 01/12/19 23:29 Ur Squamous Epith Cells Many per lpf (None-Few) H 01/12/19 23:29 Many per hpf (None-Few) H 01/12/19 23:29 Ur Culture Indicated? YES (NO) A 01/12/19 23:29 Consult Discharge Plan - Plan Referrals: Conrado Romo MD [Primary Care Provider] -
[2019-01-14] MEDS ORDERED: hydrOXYzine pamoate 25 MG CAPSULE PO PRN (21:19)
[2019-01-14] MEDS: traMADol 50 MG TABLET PO PRN (21:45)
[2019-01-14] MEDS: Famotidine 20 MG TABLET PO SCH (21:45)
[2019-01-14] MEDS: Gabapentin 300 MG CAPSULE PO SCH (21:46)
[2019-01-14] MEDS: Budesonide/Formoterol 80/4.5 MDI IH SCH (21:53)
--- NOTE | 2019-01-14 22:55 | Electrocardiograph Report ---
[place] [id number] Test Date: 2019-01-12 Pat Name: Cecilia Kirk Department: 114 Room: [facility] Gender: F Loftsman: JEFF : 1945 Requested By: Momo Timmons Order Number: [id number] Reading MD: Rema Belle Measurements Intervals [place] Rate: 95 P: 49 VT: 201 QRS: 11 QRSD: 93 T: 29 QT: 356 QTc: 408 Interpretive Statements SINUS RHYTHM INCOMPLETE RIGHT BUNDLE BRANCH BLOCK MODERATE ST DEPRESSION Electronically Signed On 01-14-2019 22:53:47 EDT by Rema Belle
[2019-01-15] MEDS: *HR* Heparin 5,000 UNIT/ML VIAL SQ SCH (06:16)
[2019-01-15 07:16] VITALS: BP 128/76
--- NOTE | 2019-01-15 07:29 | Orthopedics Progress Note ---
Date of Encounter: 01/15/19 Time of Encounter: : - Assessment and Plan (1) Right femoral fracture Current Visit: Yes Status: Acute Qualifiers: Encounter type: initial encounter Femur location: base of neck Fracture type: closed Qualified Code(s): S72.041A - Displaced fracture of base of neck of right femur, initial encounter for closed fracture Subjective Interval history: S: Patient is seen today and has no complaints. O: Afebrile and vital signs are stable Operative extremity dressing is clean, dry, and intact. Neurovascularly intact distally A: Hip hemiarthroplasty P: Resume postoperative care Discontinued the heparin We will resume aspirin 325 mg by mouth daily for DVT prophylaxis Objective Vital signs: Vital Signs Temp Pulse Resp BP Pulse Ox 01/15/19 07:00 98.8 F 83 16 128/76 95 01/15/19 03:49 99.1 F 86 17 136/78 93 01/14/19 23:17 99.9 F H 88 16 108/76 95 01/14/19 21:56 16 98 01/14/19 19:18 99.4 F 107 16 113/73 95 01/14/19 14:31 98.4 F 99 16 119/84 96 01/14/19 10:10 98.2 F 92 17 118/72 95 Intake and Output 01/14/19 01/14/19 01/15/19 15:59 23:59 07:59 Intake Total 0 / 150 100 / 100 Output Total 325 / 575 100 / 575 Balance -325 / -425 -100 / -425 100 / 100 Intake: Oral 0 / 0 100 / 100 Output: Urine 100 / 100 Catheter 325 / 475 Other: Meal Breakfast Percent of Meal Consumed 0% Stool Size Moderate Stool Consistency formed Stool Color Brown # Bowel Movements 1 Weight 80.7 kg Patient Weight 01/15/19 23:59 Weight 80.7 kg - Labs CBC & BMP: 01/14/19 04:17 01/14/19 04:17 Labs: Abnormal lab results RBC 3.64 M/mcL (3.82-4.97) L 01/14/19 04:17 Hgb 10.8 g/dL (11.5-15.4) L D 01/14/19 04:17 Hct 33.8 % (35.3-44.9) L 01/14/19 04:17 PT 13.3 Seconds (9.4-12.1) H 01/12/19 22:46 Potassium 3.2 mEq/L (3.5-5.1) L 01/14/19 04:17 Chloride 97 mEq/L (98-107) L 01/12/19 22:46 Carbon Dioxide 32 mEq/L (23-29) H 01/14/19 04:17 0.46 mg/dL (0.60-1.20) L 01/14/19 04:17 30 (6-26) H 01/14/19 04:17 Glucose 129 mg/dL (70-105) H 01/14/19 04:17 107 Units/L (34-104) H 01/12/19 22:46 LDL Cholesterol, Calc 102 mg/dL (0-99) H 01/12/19 22:46 Cloudy (Clear) A 01/12/19 23:29 40 mg/dL (Negative) H 01/12/19 23:29 Trace (Negative) H 01/12/19 23:29 Ur Leukocyte Esterase Trace (Negative) H 01/12/19 23:29 5-15 per hpf (0-3) H 01/12/19 23:29 5-15 per hpf (0-3) H 01/12/19 23:29 Ur Squamous Epith Cells Many per lpf (None-Few) H 01/12/19 23:29 Many per hpf (None-Few) H 01/12/19 23:29 Ur Culture Indicated? YES (NO) A 01/12/19 23:29 Consult Discharge Plan - Plan Additional Instructions: DISCHARGE INSTRUCTIONS Dr. Saunders Total Hip Replacement/Hip Hemiarthroplasty Wound Care -Change the dressing daily with ABD pads and either paper tape or Medipore tape. Activity -No heavy lifting objects greater than 10 pounds. -You may be weight-bear as tolerated on both of your lower extremities. -Use crutches or a walker for ambulation. -Posterior hip precautions for 6 weeks: No bending the hip past 90 degrees. Do not allow the leg to cross the midline of your body (adduction). No twisting motions. Ask your physical therapist to review these precautions with you. Reducing the Risk of Blood Clots -You will need to complete a total 4 week course of enteric coated aspirin 325 mg daily. -Wear knee high compression hose 23 hours per day. Discharge Pain Medications -Per the hospitalist Follow-Up -Follow-up with Dr. Saunders office in 2 weeks from the surgery date for a post- operative evaluation. -Call the office at [phone] to schedule or confirm your appointment. -Follow up with your primary care physician to discuss testing for bone mineral density. Referrals: Conrado Romo MD [Primary Care Provider] -
[2019-01-15 08:00] LABS: Hematocrit 32.4 % (35.3-44.9); Hemoglobin 9.9 g/dL (11.5-15.4); Mean Corpuscular HGB Conc 30.6 g/dL (31.6-35.5); Mean Corpuscular Hemoglobin 29.1 pg (28.0-33.3); Mean Corpuscular Volume 95.3 fL (83.0-100.0); Mean Platelet Volume 10.3 fL (9.4-12.4); Platelet Count 303 K/mcL (140-400); Red Cell Distribution Width 12.7 % (11.5-14.5)
[2019-01-15 08:53] LABS: BUN/Creatinine Ratio 38 (6-26); Blood Urea Nitrogen 18 mg/dL (8-23); Calcium 8.4 mg/dL (8.6-10.3); Carbon Dioxide 33 mEq/L (23-29); Chloride 102 mEq/L (98-107); Glucose 96 mg/dL (70-105); Osmolality,Calculated 294 (280-300); Potassium 3.7 mEq/L (3.5-5.1); Sodium 141 mEq/L (136-145); eGFR For Non-African Americans > 60 (> 60)
[2019-01-15] MEDS: Gabapentin 300 MG CAPSULE PO SCH (08:54)
[2019-01-15] MEDS: Famotidine 20 MG TABLET PO SCH (08:54)
[2019-01-15] MEDS: traMADol 50 MG TABLET PO PRN (08:55)
[2019-01-15] MEDS ORDERED: Furosemide 20 MG TABLET PO SCH (09:00)
[2019-01-15] MEDS ORDERED: Aspirin Enteric Coated 325 MG Tablet PO SCH (09:00)
--- NOTE | 2019-01-15 09:26 | Discharge Summary ---
Orders not resulted at time of discharge: Pending orders 01/13/19 14:34 Surgical Pathology [PTH] Routine 01/16/19 04:00 Basic Metabolic Panel AM 0400 Complete Blood Count w/o Diff [HEME] AM 0400 Date of Encounter: 01/15/19 Time of Encounter: 09:24 - Discharge Diagnosis (1) Right femoral fracture Priority: Primary Status: Acute Qualifiers: Encounter type: initial encounter Femur location: base of neck Fracture type: closed Qualified Code(s): S72.041A - Displaced fracture of base of neck of right femur, initial encounter for closed fracture (2) HTN (hypertension) Priority: Secondary Status: Chronic Qualifiers: Hypertension type: essential hypertension Qualified Code(s): I10 - Essential (primary) hypertension (3) Neuropathy Priority: Secondary Status: Chronic (4) COPD (chronic obstructive pulmonary disease) Priority: Secondary Status: Chronic Qualifiers: COPD type: emphysema Emphysema type: unspecified Qualified Code(s): J43.9 - Emphysema, unspecified Hospital course: Ms. Kirk is a 73 year old female Discharge discussed with: patient - Time Spent with Patient Total time spent providing and/or coordinating discharge services: Time spent: Greater than 30 minutes (35 minutes) - Discharge Medications Prescriptions: New Aspirin Enteric Coated [Aspirin EC] 325 mg PO DAILY tablet. OxyCODONFlor Immed Rel [Roxicodone 5 MG] 5 mg PO Q6HR PRN 7 Days #28 tablet PRN Reason: MOderate to severe pain Acetaminophen [Tylenol] 650 mg PO Q6HR PRN tablet PRN Reason: Mild Pain/Fever Docusate [Colace] 100 mg PO BID capsule Continued Albuterol Neb [Proventil Neb] 3 ml IH Q4H PRN PRN Reason: Shortness Of Breath Albuterol Sulfate [Ventolin Hfa] 2 puff PO Q4H PRN PRN Reason: Shortness Of Breath Budesonide/Formoterol 80/4.5 [Symbicort 80/4.5] 1 puff PO BID Calcium Carbonate/Vitamin D3 [Calcium 600-Vit D3 400 Tablet] 1 tab PO BID Furosemide [Lasix] 20 mg PO DAILY Gabapentin [Neurontin] 300 mg PO TID hydrOXYzine HCl [Hydroxyzine HCl] 25 mg PO Q6H PRN PRN Reason: Anxiety Losartan Potassium [Cozaar] 100 mg PO DAILY Omeprazole [PriLOSEC] 40 mg PO DAILY Ondansetron HCl [Zofran] 4 mg PO Q8H PRN PRN Reason: NAUSEA/VOMITING PARoxetine HCl [Paroxetine HCl] 40 mg PO DAILY Ranitidine HCl [Heartburn Relief] 150 mg PO BID Umeclidinium [place] [Incruse Ellipta] 1 puff PO DAILY Home Medications: Albuterol Neb [Proventil Neb] 3 ml IH Q4H PRN 01/14/19 [History] Albuterol Sulfate [Ventolin Hfa] 2 puff PO Q4H PRN 01/14/19 [History] Budesonide/Formoterol 80/4.5 [Symbicort 80/4.5] 1 puff PO BID 01/14/19 [History] Calcium Carbonate/Vitamin D3 [Calcium 600-Vit D3 400 Tablet] 1 tab PO BID 01/14/19 [History] Furosemide [Lasix] 20 mg PO DAILY 01/14/19 [History] Gabapentin [Neurontin] 300 mg PO TID 01/14/19 [History] Losartan Potassium [Cozaar] 100 mg PO DAILY 01/14/19 [History] Omeprazole [PriLOSEC] 40 mg PO DAILY 01/14/19 [History] Ondansetron HCl [Zofran] 4 mg PO Q8H PRN 01/14/19 [History] PARoxetine HCl [Paroxetine HCl] 40 mg PO DAILY 01/14/19 [History] Ranitidine HCl [Heartburn Relief] 150 mg PO BID 01/14/19 [History] Umeclidinium [place] [Incruse Ellipta] 1 puff PO DAILY 01/14/19 [History] hydrOXYzine HCl [Hydroxyzine HCl] 25 mg PO Q6H PRN 01/14/19 [History] Acetaminophen [Tylenol] 650 mg PO Q6HR PRN tablet 01/15/19 [Rx] Aspirin Enteric Coated [Aspirin EC] 325 mg PO DAILY tablet. 01/15/19 [Rx] Docusate [Colace] 100 mg PO BID capsule 01/15/19 [Rx] OxyCODONE Immed Rel [Roxicodone 5 MG] 5 mg PO Q6HR PRN 7 Days #28 tablet 01/15/19 [Rx] Allergies/Adverse Reactions: Allergy/AdvReac Type Severity Reaction Status Date / Time No Known Allergies Allergy Verified 01/14/19 18:03 Date of admission: 01/12/19 20:54 Primary care physician: Conrado Romo MD Consults: 01/12/19 22:04 Consult to Shop Hand [CONS] Routine Reason for SW Consult: possible placement and dc needs 01/12/19 22:24 Consult to Occupational Therapy [CONS] Routine Comment: Evaluate, develop and implement POC Reason for Consult: Patient fell when getting out of the shower and sustained right hip fx. Please assess patient post-surgery for ambulation strength, stability, safety, and possible rehabilitation/assistive needs for post-discharge planning. Does patient have active BEDREST order?: Yes Is patient medically & hemodynamically stable?: Yes Patient assessed for mobility or mobilized this visit?: No 01/12/19 22:26 Consult to Physical Therapy [CONS] Routine Comment: Evaluate, develop and implement POC Reason for Consult: Patient fell when getting out of the shower and sustained right hip fx. Please assess patient post-surgery for ambulation strength, stability, safety, and possible rehabilitation/assistive needs for post-discharge planning. Does patient have active BEDREST order?: Yes Is patient medically & hemodynamically stable?: Yes Patient assessed for mobility or mobilized this visit?: No 01/12/19 22:27 Consult to Nutrition [CONS] Routine Comment: CHOCOLATE BOOST OR ENSURE Consulting Provider: NUTRITION Reason for Dietary Consult: PO Supplementation 01/12/19 22:34 Consult to Orthopedic Surgery [CONS] Routine Consulting Provider: [facility]oped[facility] Reason for Consult: Patient sustained right femoral fx after falling when getting out of the shower. No recent cardiac w/u so Echocardiogram ordered for surgical clearance. Call Completed: Yes 01/13/19 16:05 Consult to Nurse Navigator [CONS] Routine Comment: ortho navigator Consult to Occupational Therapy [CONS] Routine Comment: Evaluate, develop and implement POC Reason for Consult: Hip leslye Does patient have active BEDREST order?: No Is patient medically & hemodynamically stable?: Yes Consult to Physical Therapy [CONS] Routine Comment: Evaluate, develop and implement POC Reason for Consult: total hip replacement Does patient have active BEDREST order?: No Is patient medically & hemodynamically stable?: Yes RT Post Op Consult [CONS] Routine Discharging clinician: Maverick G McCleese Anticipated date of discharge: 01/15/19 - Constitutional Vitals: Temp Pulse Resp BP Pulse Ox 98.8 F 83 16 128/76 95 01/15/19 07:00 01/15/19 07:00 01/15/19 07:00 01/15/19 07:00 01/15/19 07:00 General appearance: Present: cooperative, A&O X 3, pleasant, obese, answers questions appropriately Exam: . - Respiratory Respiratory exam: Present: CTAB. Absent: rales, rhonchi, wheezes - Cardiovascular Cardiovascular exam: Present: RRR. Absent: gallop, rubs, systolic murmur - Patient Status Disposition: Transfer SNF Condition: Fair Functional capacity at discharge: independent ambulation - Discharge Instructions Follow Up With: Conrado Romo MD [Primary Care Provider] - (1 week) Additional Instructions: DISCHARGE INSTRUCTIONS Dr. Saunders Total Hip Replacement/Hip Hemiarthroplasty Wound Care -Change the dressing daily with ABD pads and either paper tape or Medipore tape. Activity -No heavy lifting objects greater than 10 pounds. -You may be weight-bear as tolerated on both of your lower extremities. -Use crutches or a walker for ambulation. -Posterior hip precautions for 6 weeks: No bending the hip past 90 degrees. Do not allow the leg to cross the midline of your body (adduction). No twisting motions. Ask your physical therapist to review these precautions with you. Reducing the Risk of Blood Clots -You will need to complete a total 4 week course of enteric coated aspirin 325 mg daily. -Wear knee high compression hose 23 hours per day. Follow-Up -Follow-up with Dr. Saunders office in 2 weeks from the surgery date for a post- operative evaluation. -Call the office at [phone] to schedule or confirm your appointment. -Follow up with your primary care physician to discuss testing for bone mineral density. Please follow-up with your PCP as scheduled. Please resume your home medications. Please take pain medication as prescribed. - Diet and Activity Activity: as per physical therapy Diet: low salt diet
--- NOTE | 2019-01-15 09:33 | Physician Discharge Referral ---
ExtendedCare Referral Info Provider in Charge after Transfer: PCP Institutional Level of Care: Skilled - Diagnosis (1) Right femoral fracture Priority: Primary Status: Acute (2) HTN (hypertension) Priority: Secondary Status: Chronic (3) Neuropathy Priority: Secondary Status: Chronic (4) COPD (chronic obstructive pulmonary disease) Priority: Secondary Status: Chronic Prognosis: Good Aware of Diagnosis: Patient Aware of Prognosis: Patient - Transfer Medications Prescriptions: OxyCODONE Immed Rel [Roxicodone 5 MG] 5 mg PO Q6HR PRN 7 Days #28 tablet PRN Reason: MOderate to severe pain Home Medications: Albuterol Neb [Proventil Neb] 3 ml IH Q4H PRN 01/14/19 [History] Albuterol Sulfate [Ventolin Hfa] 2 puff PO Q4H PRN 01/14/19 [History] Budesonide/Formoterol 80/4.5 [Symbicort 80/4.5] 1 puff PO BID 01/14/19 [History] Calcium Carbonate/Vitamin D3 [Calcium 600-Vit D3 400 Tablet] 1 tab PO BID 01/14/19 [History] Furosemide [Lasix] 20 mg PO DAILY 01/14/19 [History] Gabapentin [Neurontin] 300 mg PO TID 01/14/19 [History] Losartan Potassium [Cozaar] 100 mg PO DAILY 01/14/19 [History] Omeprazole [PriLOSEC] 40 mg PO DAILY 01/14/19 [History] Ondansetron HCl [Zofran] 4 mg PO Q8H PRN 01/14/19 [History] PARoxetine HCl [Paroxetine HCl] 40 mg PO DAILY 01/14/19 [History] Ranitidine HCl [Heartburn Relief] 150 mg PO BID 01/14/19 [History] Umeclidinium [place] [Incruse Ellipta] 1 puff PO DAILY 01/14/19 [History] hydrOXYzine HCl [Hydroxyzine HCl] 25 mg PO Q6H PRN 01/14/19 [History] Acetaminophen [Tylenol] 650 mg PO Q6HR PRN tablet 01/15/19 [Rx] Aspirin Enteric Coated [Aspirin EC] 325 mg PO DAILY tablet. 01/15/19 [Rx] Docusate [Colace] 100 mg PO BID capsule 01/15/19 [Rx] OxyCODONE Immed Rel [Roxicodone 5 MG] 5 mg PO Q6HR PRN 7 Days #28 tablet 01/15/19 [Rx] Allergies/Adverse Reactions: Allergy/AdvReac Type Severity Reaction Status Date / Time No Known Allergies Allergy Verified 01/14/19 18:03 - Respiratory Orders None Smoking Cessation: Smoking cessation has been advised. For more information, call the [place] Tobacco Quit Line at 9-238-MWWD-NOW. - Advance Directives Code Status: Full Code - Mobility Orders Ambulate (per PT) - Rehabiliation Orders Rehab Orders: ROM Exercises, Evaluation for Physical Therapy, Evaluation for Occupational Therapy - Diet Orders Cardiac CERTIFICATION: I certify that the transfer of the above named patient to an Extended Care Facility is necessary for the continuing treatment of the diagnosis listed. The above information is true and accurate reflection of patient's current condition. Confidential - Redisclosure prohibited without a patient's written consent.
[2019-01-15] MEDS: Budesonide/Formoterol 80/4.5 MDI IH SCH (11:08)
--- NOTE | 2019-01-20 14:22 | Orthopedic Operative Note ---
Date of procedure: 01/13/19 Procedure: OPERATIVE REPORT DATE OF PROCEDURE: 01/13/2018 SURGEON: Adryan Saunders MD CATTLE BRANDER(S): There were no assistants PREOPERATIVE DIAGNOSIS: Right displaced femoral neck fracture POSTOPERATIVE DIAGNOSIS: Right displaced femoral neck fracture PROCEDURE: Right hip hemiarthroplasty ANESTHESIA: Gen. anesthesia SPECIMENS: Right femoral head IMPLANTS: Biomet Echo Fracture stem size 10mm; 51 mm bipolar head; 28 mm +3 head PREOPERATIVE NOTE AND INDICATIONS: The surgical plan was discussed with the patient. The risks, benefits, alternatives, and potential complications of this procedure were discussed with the patient including injury to veins, arteries, nerves, tendons, ligaments, and bone. Also discussed were the risks of infection, bleeding, pain, blood clots, the possible need for a blood transfusion, the possible need for further procedures, heart attack, stroke, and . Additional risks include prosthetic fracture dislocation and prosthetic infection. All of this was explained in simple terms, and the patient verbalized understanding and wished to proceed. Consent was given to proceed with surgery. PROCEDURE: The patient was seen in the preoperative holding area where the identify and the consent were confirmed. The right hip was marked. Final questions were answered. The patient was brought back to the operating room. A huddle was performed with the patient and all vital surgical team members confirming patient identity, the correct procedure, and the correct operative site. General anesthesia was administered. The patient was placed supine on the operating room table and then placed in the left lateral decubitus position. The axillary roll was placed and all bony prominences were padded. The right lower extremity was prepped and draped in the usual sterile fashion. A surgical time out was performed immediately preceding the incision with all personnel in the operating room to confirm patient identity, the correct operative site and extremity, correct radiographic studies, availability of appropriate surgical equipment, and agreement on the planned procedure. A 15 cm longitudinal curvilinear incision was made and dissection proceeded through the subcutaneous tissue using a Bovie for electrocautery. The fascia was encountered and incised splitting the fibers of the gluteus nain proximally. The Charnley retractor was placed. A Cobra was placed under the gluteus medius and the piriformis was taken down and tagged. While internally rotating the femur the short external rotators and the capsule was taken down in 1 sleeve. This exposed the fracture and an osteotomy was made 1 cm above the lesser trochanter. The femoral head was removed with a corkscrew. Pulvinar and the round ligament were debrided. The cartilage of the acetabulum was intact. The femoral head was sized and the 51 mm sizer fit appropriately. The femoral shaft was elevated and a box osteotome was used to lateralize. The canal finder was used and shaft reaming went up to a size 10 mm. Broaching commenced and the 10 mm broach fit nicely and had good rotational stability. The trial head and neck were placed and the hip was articulated and felt to be a bit short and therefore this was re-trialed with a +3 and was felt to be the correct length. The hip was stable through a functional range of motion. The hip was disarticulated and the trial components were removed. The hip was washed with 3 L of saline. The definitive stem was tapped into position, and the definitive head was impacted onto the Aguilar taper. The hip was articulated and noted to be stable through a functional range of motion. After final irrigation 1 g of vancomycin powder was placed into the hip joint and the capsule was closed with FiberWire stitches through drill holes in the greater trochanter and the piriformis was repaired to the gluteus medius insertion. The Charnley retractor was removed and the wound was irrigated and the fascia closed with 0 Vicryl stitches. The skin was closed with a combination of 0 Vicryl, 3-0 Vicryl, and hardeep. A sterile honeycomb dressing was applied. The patient was placed supine in her hospital bed. The instrument, sponge, and needle counts were correct after wound closure. POST OPERATIVE PLAN: Weight Bearing: Weightbearing as tolerated to bilateral lower extremities Follow Up: 2 weeks Was there an kennel assistant present: No Estimated blood loss (cc): 250
== END 2019-01-15 11:13 | DRG 470 ==
LOC: 3NENU 20:54 → SUATTDRO 20:54
PROVIDERS: ADMIT Internal Medicine Nephrology; ATTEND Internal Medicine

== ENCOUNTER 2019-01-29 15:27 | Inpatient (IN) ==
--- NOTE | 2019-01-29 15:43 | Orthopedic Consult Note ---
Date of Encounter: 01/29/19 Time of Encounter: 15:00 Assessment and Plan (1) Surgical site infection Status: Acute I did have a long discussion with the patient regarding the diagnosis. She has a surgical site infection in the face of a recent right hip and knee arthroplasty. Given the extent of the cellulitis my recommendation is for admission to the hospitalist. She will be sent down to the emergency department for admission and IV antibiotics. We will obtain labs as well as advanced imaging. I anticipate operative incision, drainage, irrigation, and debridement of the right hip. I did explain to the patient that she is a risk of needing multiple procedures and even possible resection arthroplasty in the future. The patient did verbalized understanding and wished to proceed with admission, IV antibiotics, and placement on the OR schedule for I&D of the right hip. I have reviewed each of the pertinent components of this chart and any other pertinent medical component(s) including but not limited to pertinent application of the chief complaint, history of present illness, current medication, medical history, allergies, family history, medical history, surgical history, social history, review of systems, vital signs, and any other portion of the pertinent patient medical record directly or indirectly involved with this patient care that is pertinent based on my medical decision process. VAISHALI Cruz History of Present Illness HPI: Ms. Kirk is a 73 year old female who is about 2 weeks out from right hip hemiarthroplasty due to a displaced femoral neck fracture. She recovered uneventfully in the hospital and was discharged to a shelter. On January 25, a nurse at the shelter began noticing redness and drainage and the patient was placed on Bactrim. Due to worsening of her symptoms she presented to the office today for further evaluation and management as she was seen by Rach Guzman and myself. The patient does complain of generalized right lower extremity pain, mostly below the knee with difficulties in ambulation. She she complains of very little pain localized to the proximal lateral thigh in the area of the surgical incision. No trauma since the initial fracture. She denies any numbness, tingling, or other associated signs or symptoms. Pain is worsened with use and movement of the right lower extremity and better with rest. No other modifying factors. The patient denies any feelings of illness. Past Med Surg Social Fam HX - Past Medical History Medical history: COPD, hypertension Additional medical history: back pain Psychiatric history: no psych history - Past Surgical History Surgical History: cholecystectomy, hysterectomy - Social History Smoking Status: Former smoker Smokeless Tobacco Status: No Alcohol use: none Drug use: none - Family History Father Family Member Ethnicity: Non- Living Status: Mother Family Member Ethnicity: Non- Brother Family Member Ethnicity: Non- Living Status: Still Living Sister Family Member Ethnicity: Non- Living Status: Still Living Hx Family Neurologic Disorders: Yes (Neuropathy in LEs) Medications and Allergies Albuterol Neb [Proventil Neb] 3 ml IH Q4H PRN 01/14/19 [History] Albuterol Sulfate [Ventolin Hfa] 2 puff PO Q4H PRN 01/14/19 [History] Budesonide/Formoterol 80/4.5 [Symbicort 80/4.5] 1 puff PO BID 01/14/19 [History] Calcium Carbonate/Vitamin D3 [Calcium 600-Vit D3 400 Tablet] 1 tab PO BID 01/14/19 [History] Furosemide [Lasix] 20 mg PO DAILY 01/14/19 [History] Gabapentin [Neurontin] 300 mg PO TID 01/14/19 [History] Losartan Potassium [Cozaar] 100 mg PO DAILY 01/14/19 [History] Omeprazole [PriLOSEC] 40 mg PO DAILY 01/14/19 [History] Ondansetron HCl [Zofran] 4 mg PO Q8H PRN 01/14/19 [History] PARoxetine HCl [Paroxetine HCl] 40 mg PO DAILY 01/14/19 [History] Ranitidine HCl [Heartburn Relief] 150 mg PO BID 01/14/19 [History] Umeclidinium [place] [Incruse Ellipta] 1 puff PO DAILY 01/14/19 [History] hydrOXYzine HCl [Hydroxyzine HCl] 25 mg PO Q6H PRN 01/14/19 [History] Acetaminophen [Tylenol] 650 mg PO Q6HR PRN tablet 01/15/19 [Rx] Aspirin Enteric Coated [Aspirin EC] 325 mg PO DAILY tablet. 01/15/19 [Rx] Docusate [Colace] 100 mg PO BID capsule 01/15/19 [Rx] Allergy/AdvReac Type Severity Reaction Status Date / Time No Known Allergies Allergy Verified 05/28/19 18:03 All Systems Reviewed: Constitutional -The patient denies any fevers, chills, or feelings of illness Neurologic -The patient denies any numbness, tingling, or burning pains Physical Exam - Constitutional Vitals: Temp Pulse Resp BP Pulse Ox 98.3 F 83 18 113/87 94 01/29/19 15:32 01/29/19 15:32 01/29/19 15:32 01/29/19 15:32 01/29/19 15:32 CONSTITUTIONAL -Vitals reviewed -The patient is well developed, well nourished, well groomed PSYCHIATRIC -Fully alert and oriented -Pleasant mood RIGHT LOWER EXTREMITY Inspection shows that the incision is intact and the hardeep are in place. There is generalized redness around the entire incision which has been marked out. It is a dark, blanching red. This is associated with subcutaneous induration but no fluctuance. No active drainage, however there is yellowish spotting on the dressing that was taken down. I can gently passively range the right hip and axial load the right thigh without significant hip or groin pain. No tenderness distally about the knee, tib-fib, ankle, or toes. She can grossly flex and extend the ankle and toes and the foot is sensate and well- perfused. Diagnostic Imaging: I did personally review and interpret x-rays of the right hip obtained today at the shelter shows no significant change in position of the hardware. Results - Labs Labs: All other labs normal.
--- NOTE | 2019-01-29 15:52 | Emergency Department Note ---
Disposition Clinical Impression: Cellulitis of right hip Disposition: Admitted As Inpatient Condition: Fair Time of Disposition: 16:02 General Adult HPI - General Stated complaint: r hip problem Time Seen by Provider: 01/29/19 15:31 - History of Present Illness HPI Narrative: Ms. Kirk is a 73 year old female who is about 2 weeks out from right hip hemiarthroplasty due to a displaced femoral neck fracture. Patient notices that she had increasing redness about 4 days ago. The patient states that she developed low-grade temperatures. The patient does complain of some increasing pain as well as pressure to the right hip. Patient denies any abdominal pain, chest pain, shortness of breath. Patient denies any vomiting. The patient states that she has had some drainage from the wound. The patient states the pain is made worse with movement and pressure to the region. The patient states is mild in intensity. Patient denies any focal weakness or numbness. - Related Data Home Medications Medication Instructions Recorded Confirmed Albuterol Neb [Proventil Neb] 3 ml IH Q4H PRN 01/14/19 01/14/19 Albuterol Sulfate [Ventolin Hfa] 2 puff PO Q4H PRN 01/14/19 01/14/19 Budesonide/Formoterol 80/4.5 1 puff PO BID 01/14/19 01/14/19 [Symbicort 80/4.5] Calcium Carbonate/Vitamin D3 1 tab PO BID 01/14/19 01/14/19 [Calcium 600-Vit D3 400 Tablet] Furosemide [Lasix] 20 mg PO DAILY 01/14/19 01/14/19 Gabapentin [Neurontin] 300 mg PO TID 01/14/19 01/14/19 Losartan Potassium [Cozaar] 100 mg PO DAILY 01/14/19 01/14/19 Omeprazole [PriLOSEC] 40 mg PO DAILY 01/14/19 01/14/19 Ondansetron HCl [Zofran] 4 mg PO Q8H PRN 01/14/19 01/14/19 PARoxetine HCl [Paroxetine HCl] 40 mg PO DAILY 01/14/19 01/14/19 Ranitidine HCl [Heartburn Relief] 150 mg PO BID 01/14/19 01/14/19 Umeclidinium [place] [Incruse 1 puff PO DAILY 01/14/19 01/14/19 Ellipta] hydrOXYzine HCl [Hydroxyzine HCl] 25 mg PO Q6H PRN 01/14/19 01/14/19 Previous Rx's Medication Instructions Recorded Acetaminophen [Tylenol] 650 mg PO Q6HR PRN tablet 01/15/19 Aspirin Enteric Coated [Aspirin EC] 325 mg PO DAILY tablet. 01/15/19 Docusate [Colace] 100 mg PO BID capsule 01/15/19 Allergies Allergy/AdvReac Type Severity Reaction Status Date / Time No Known Allergies Allergy Verified 01/14/19 18:03 Review of Systems: As mentioned per history of present illness and as follows. Constitutional: Positive for chills or fever HENT: Negative for sore throat. Eyes: Negative for visual disturbance Respiratory: Negative for shortness of breath. Cardiovascular: Negative for palpitations. Gastrointestinal: Negative for abdominal pain Genitourinary: Negative for dysuria Musculoskeletal: Negative for back pain. Skin: Negative for rash. Neurological: Negative for focal weakness Psychiatric/Behavioral: Negative for depression Past Medical History - Past Medical History Medical history: Reports: COPD, hypertension Surgical history: Reports: cholecystectomy, hysterectomy Psychiatric history: Reports: no psych history - Social History Smoking Status: Former smoker Smokeless Tobacco Status: No Alcohol use: Reports: none Drug use: Reports: none Physical Exam PHYSICAL EXAM Constitutional: Well developed, Well nourished, No acute distress, Non-toxic appearance. HENT: Normocephalic, Atraumatic, Bilateral external ears normal, Oropharynx moist, No oral exudates, Nose normal. Neck- Normal range of motion, No tenderness, Supple. Eyes: PERRL, EOMI, Conjunctiva normal,. Cardiovascular: Regular rate and rhythm without clicks, rubs, gallops or murmurs. Respiratory: Normal breath sounds, No respiratory distress, No wheezing, rhonchi, or crackles. GI: Soft, nontender, no evidence of guarding or peritoneal signs. Bowel sounds are active. Musculoskeletal: Patient does have some tenderness over the right lateral hip. Patient has limited range of motion examination. The patient otherwise has equal strength noted to the upper extremities. The patient does have some weakness in the right lower extremity secondary to her discomfort. Integument: Warm, Dry, patient does have erythema surrounding the right lateral hip incision. This extends the length of the incision, there is no evidence of crepitus on examination, no evidence of necrotizing fasciitis. The patient has no evidence of drainage that can be expressed from the wound. Plus one to dorsalis pedis pulse in the right foot. Neurologic: Alert & oriented x 3, Normal sensory function, No focal deficits noted. CN II-XII grossly intact. Course Vital Signs Temperature 98.3 F 01/29/19 15:32 Pulse Rate 83 01/29/19 15:32 Respiratory Rate 18 01/29/19 15:32 Blood Pressure 113/87 01/29/19 15:32 O2 Sat by Pulse Oximetry 94 01/29/19 15:32 Temperature 98.3 F 01/29/19 15:49 Pulse Rate 83 01/29/19 15:49 Respiratory Rate 18 01/29/19 15:49 Blood Pressure 113/87 01/29/19 15:49 O2 Sat by Pulse Oximetry 94 01/29/19 15:49 Oxygen Delivery Oxygen Delivery Room Air Medical Decision Making - MDM Narrative Medical decision making narrative: Case was discussed with Dr. Loomis as well as Dr. Pérez at this point I am elected to have the patient omitted to the hospitalist. They have elected to take the patient to surgery tomorrow unless she gets dramatically better with IV antibiotics. Patient did have vancomycin and Zosyn ordered. The patient at this point time is going to be admitted in stable condition. The patient at this point time patient will be given to the hospitalist in stable condition.
[2019-01-29] MEDS ORDERED: Isovue-370 500 ML BOTTLE IVP ONE (15:59)
[2019-01-29 16:07] LABS: Basophils % 0.5 %; Eosinophils # 0.1 K/mcL (0.0-0.6); Eosinophils % 1.4 %; Hematocrit 32.6 % (35.3-44.9); Hemoglobin 10.1 g/dL (11.5-15.4); Immature Granulocytes % 0.2 % (0-4); Lymphocytes # 1.6 K/mcL (0.6-4.6); Lymphocytes % 20.1 %; Mean Corpuscular Hemoglobin 29.2 pg (28.0-33.3); Mean Corpuscular Volume 94.2 fL (83.0-100.0); Mean Platelet Volume 10.2 fL (9.4-12.4); Monocytes # 0.7 K/mcL (0.0-1.3); Monocytes % 8.7 %; Neutrophils # 5.6 K/mcL (1.6-8.9); Platelet Count 419 K/mcL (140-400); Red Blood Count 3.46 M/mcL (3.82-4.97); Red Cell Distribution Width 12.9 % (11.5-14.5); Segmented Neutrophils % 69.1 %; White Blood Count 8.1 K/mcL (4.3-11.1)
[2019-01-29 16:27] LABS: BUN/Creatinine Ratio 18 (6-26); Blood Urea Nitrogen 9 mg/dL (8-23); Calcium 9.1 mg/dL (8.6-10.3); Carbon Dioxide 27 mEq/L (23-29); Chloride 101 mEq/L (98-107); Glucose 99 mg/dL (70-105); Osmolality,Calculated 281 (280-300); Potassium 3.6 mEq/L (3.5-5.1); Sodium 136 mEq/L (136-145); eGFR For African Americans > 60 (> 60); eGFR For Non-African Americans > 60 (> 60)
[2019-01-29] MEDS ORDERED: Piperacillin/Tazobactam 3.375 GM in 0.9 % Sodium Chloride Mini Bag 100 ML IVP ONE (17:00)
--- NOTE | 2019-01-29 17:11 | Internal Med History&Physical ---
Date of Encounter: 01/29/19 Time of Encounter: 17:08 Internal Medicine - H&P: HPI Chief complaint: Send by orthopedics Admitted From: Long-term Nursing Facility Plans for Post Hospital Care: Transfer Alf Facility History of present illness: Ms. Kirk is a 73 year old female with past medical history of COPD, hypertension, neuropathy in bilateral lower extremity came in from custodial was advised by orthopedist. Patient recently had right hip arthroplasty on 01/13/19 after she had a displaced right femoral neck fracture. Patient was discharged with aspirin 225 for DVT prophylaxis along with her home medication and pain regimen. Patient was progressing well and doing well however around January 25 patient was noticed by nurse at the custodial to have some redness at the site of surgical wound. She was given Bactrim for it. Patient was seen by orthopedist in the clinic today and was asked to come to the hospital for further surgical management. Patient does not have significant hip pain or surgical site pain but has some pain in her knees and below. Had low-grade fever but denies any chills nausea or vomiting. Pain is worse with movement of her right lower extremity. Denies any falls. Her pain had been actually improving since her last discharge. Hospitalist service was requested to manage along with orthopedist. She denied any chest pain difficulty breathing abdominal pain back pain left lower extremity pain or any headache. Denies any allergies. She does not know her medication by name but denies any changes recently. Past Med Surg Social Fam HX - Past Medical History Medical history: COPD, hypertension Additional medical history: back pain Psychiatric history: no psych history - Past Surgical History Surgical History: cholecystectomy, hysterectomy Additional surgical history: right hip surgery - Social History Smoking Status: Former smoker Smokeless Tobacco Status: No Alcohol use: none Drug use: none - Family History Father Family Member Ethnicity: Non- Living Status: Mother Family Member Ethnicity: Non- Brother Family Member Ethnicity: Non- Living Status: Still Living Sister Family Member Ethnicity: Non- Living Status: Still Living Hx Family Neurologic Disorders: Yes (Neuropathy in LEs) Internal Medicine - H&P: Meds Albuterol Neb [Proventil Neb] 3 ml IH Q4H PRN 01/14/19 [History] Albuterol Sulfate [Ventolin Hfa] 2 puff PO Q4H PRN 01/14/19 [History] Budesonide/Formoterol 80/4.5 [Symbicort 80/4.5] 1 puff PO BID 01/14/19 [His tory] Calcium Carbonate/Vitamin D3 [Calcium 600-Vit D3 400 Tablet] 1 tab PO BID 01/14/19 [History] Furosemide [Lasix] 20 mg PO DAILY 01/14/19 [History] Gabapentin [Neurontin] 300 mg PO TID 01/14/19 [History] Losartan Potassium [Cozaar] 100 mg PO DAILY 01/14/19 [History] Omeprazole [PriLOSEC] 40 mg PO DAILY 01/14/19 [History] Ondansetron HCl [Zofran] 4 mg PO Q8H PRN 01/14/19 [History] PARoxetine HCl [Paroxetine HCl] 40 mg PO DAILY 01/14/19 [History] Ranitidine HCl [Heartburn Relief] 150 mg PO BID 01/14/19 [History] Umeclidinium [place] [Incruse Ellipta] 1 puff PO DAILY 01/14/19 [History] hydrOXYzine HCl [Hydroxyzine HCl] 25 mg PO Q6H PRN 01/14/19 [History] Acetaminophen [Tylenol] 650 mg PO Q6HR PRN tablet 01/15/19 [Rx] Aspirin Enteric Coated [Aspirin EC] 325 mg PO DAILY tablet. 01/15/19 [Rx] Docusate [Colace] 100 mg PO BID capsule 01/15/19 [Rx] Allergy/AdvReac Type Severity Reaction Status Date / Time No Known Allergies Allergy Verified 01/14/19 18:03 All Systems PM: A 10-system review of systems was performed and is negative for pertinent findings except as documented above in the HPI. - Constitutional Vitals: Temp Pulse Resp BP Pulse Ox 98.3 F 83 18 113/87 94 01/29/19 15:49 01/29/19 15:49 01/29/19 15:49 01/29/19 15:49 01/29/19 15:49 Exam: Constitutional: Vitals as noted. Conversant. No Apparent Distress. Well groomed. Eyes : Sclera white, conjunctiva clear, no lid lag, PEARLA. ENT : Grossly normal hearing. Oropharyngeal exam unremarkable. Moist mucus membranes. No JVD, no cervical lymphadenopathy. no thyromegaly or mass. Respiratory : Clear to auscultation bilaterally. No accessory muscle use, rales, rhonchi or wheezes Cardiovascular : RRR, +S1, +S2. no murmur, gallop, rubs. No chest wall tend erness GI/Abdominal : Soft, Non-tender, Non-distended, normal bowel sounds, soft, no peritoneal signs. no orgenomegaly or mass appreciated. no hernia. Musculoskeletal: pulses palpable and symmetrical in UE/LE. Rt calf tenderness and positive aaron sign. sensation intact. Rt hip incision with warmth, swelling, redness, induration and mil tenderness. 5x6 cm fluctuance also notice along suture line with mild purulent discharge. Neurological: AO X3, CN II-XII grossly intact, grossly normal motor and sensory exam. Skin: as above Pych: Good insight and judgement. Intact memory. AOx3. Internal Med - H&P Results - Labs CBC & Chem 7: 01/29/19 15:54 01/29/19 15:54 Labs: Short CBC 01/29/19 Range/Units 15:54 WBC 8.1 (4.3-11.1) K/mcL Hgb 10.1 L (11.5-15.4) g/dL Hct 32.6 L (35.3-44.9) % Plt Count 419 H (140-400) K/mcL Neutrophils # 5.6 (1.6-8.9) K/mcL BMP 01/29/19 15:54 Sodium 136 Potassium 3.6 Chloride 101 Carbon Dioxide 27 BUN 9 Creatinine 0.49 L Glucose 99 Calcium 9.1 - Assessment and Plan (1) Surgical site infection Current Visit: No Status: Acute Assessment and plan: Patient has signs of cellulitis as well as possible abscess along the surgical site of recent right hip arthroplasty. Patient does not appear to be in sepsis. Blood cultures have been collected in ER. We will also obtain wound cultures for starting empiric antibiotics Patient would be continued on vancomycin and Zosyn Plan for surgery tomorrow with orthopedist. May need multiple procedure per orthopedist. f/u CT hip. Keep patient on gentle IV fluid with LR at 60 mL and nothing by mouth after midnight. Hold home antihypertensives for now. We will confirm home medications (2) Tenderness of right calf Current Visit: Yes Status: Acute Assessment and plan: Patient was on aspirin 325 for DVT prophylaxis Patient does have some right calf pain. It could be referred from her hip, however given recent surgery. We will obtain DVT study. We will hold aspirin for now as planned for surgery and keep on heparin for DVT prophylaxis (3) Cellulitis of right hip Current Visit: Yes Status: Acute (4) DVT prophylaxis Current Visit: No Status: Acute Assessment and plan: As above (5) COPD (chronic obstructive pulmonary disease) Current Visit: No Status: Chronic Assessment and plan: Not in exacerbation continue patient's home inhalers and year and albuterol Qualifiers: COPD type: emphysema Emphysema type: unspecified Qualified Code(s): J43.9 - Emphysema, unspecified (6) HTN (hypertension) Current Visit: No Status: Chronic Assessment and plan: Hold home antihypertensives for now given patient at risk of sepsis Qualifiers: Hypertension type: essential hypertension Qualified Code(s): I10 - Essential (primary) hypertension (7) Neuropathy Current Visit: No Status: Chronic Assessment and plan: Continue home gabapentin. We will confirm dosage. (8) Anemia Current Visit: Yes Status: Acute Assessment and plan: Stable since her discharge Monitor for now. Qualifiers: Anemia type: unspecified type Qualified Code(s): D64.9 - Anemia, unspecified (9) Thrombocytosis Current Visit: Yes Status: Acute Assessment and plan: Likely reactive Monitor for now - Time Spent With Patient Total time spent is greater than 50% in coordination of care (as documented) at patient's floor/unit and/or counseling patient:
[2019-01-29] MEDS ORDERED: Albuterol 2.5 MG/3 ML NEBULIZER IH PRN (17:12)
[2019-01-29 19:02] LABS: C-Reactive Protein 139 mg/L (Less than 10)
[2019-01-29] MEDS: Ringers Solution, Lactated 1,000 ML IVC SCH (20:00)
[2019-01-29] MEDS: Budesonide/Formoterol 80/4.5 MDI IH SCH (20:42)
[2019-01-29] MEDS: Acetaminophen 325 MG TABLET PO PRN (20:58)
[2019-01-29] MEDS: Gabapentin 300 MG CAPSULE PO SCH (20:59)
[2019-01-29] MEDS: *HR* Heparin 5,000 UNIT/ML VIAL SQ SCH (23:05)
[2019-01-30] MEDS: *HR* OxyCODONE Oral Soln 5 MG/5 ML UD.LIQ PO PRN (00:08)
[2019-01-30] MEDS: Piperacillin/Tazobactam 3.375 GM in 0.9 % Sodium Chloride Mini Bag 100 ML IVPB SCH ×3 (00:09→16:35)
[2019-01-30] MEDS: *HR* Heparin 5,000 UNIT/ML VIAL SQ SCH (06:33)
[2019-01-30 06:58] LABS: Basophils % 0.4 %; Eosinophils # 0.1 K/mcL (0.0-0.6); Eosinophils % 1.4 %; Hematocrit 32.7 % (35.3-44.9); Hemoglobin 10.2 g/dL (11.5-15.4); Immature Granulocytes % 0.2 % (0-4); Lymphocytes # 1.5 K/mcL (0.6-4.6); Lymphocytes % 17.6 %; Mean Corpuscular HGB Conc 31.2 g/dL (31.6-35.5); Mean Corpuscular Hemoglobin 28.7 pg (28.0-33.3); Mean Corpuscular Volume 92.1 fL (83.0-100.0); Mean Platelet Volume 10.4 fL (9.4-12.4); Monocytes # 0.5 K/mcL (0.0-1.3); Monocytes % 6.2 %; Neutrophils # 6.2 K/mcL (1.6-8.9); Platelet Count 437 K/mcL (140-400); Red Blood Count 3.55 M/mcL (3.82-4.97); Red Cell Distribution Width 12.9 % (11.5-14.5); Segmented Neutrophils % 74.2 %; White Blood Count 8.4 K/mcL (4.3-11.1)
[2019-01-30 07:15] LABS: BUN/Creatinine Ratio 18 (6-26); Blood Urea Nitrogen 9 mg/dL (8-23); Calcium 8.9 mg/dL (8.6-10.3); Carbon Dioxide 25 mEq/L (23-29); Chloride 103 mEq/L (98-107); Glucose 96 mg/dL (70-105); Osmolality,Calculated 287 (280-300); Potassium 3.3 mEq/L (3.5-5.1); Sodium 139 mEq/L (136-145); eGFR For African Americans > 60 (> 60); eGFR For Non-African Americans > 60 (> 60)
--- NOTE | 2019-01-30 07:50 | Orthopedics Progress Note ---
Date of Encounter: 01/30/19 Time of Encounter: 12:00 - Assessment and Plan (1) History of hemiarthroplasty of right hip Current Visit: Yes Status: Acute (2) Surgical site infection Current Visit: Yes Status: Acute Subjective Principal diagnosis: right hip infection Interval history: Patient with c/o pain to right hip with redness and swelling Patient had right hip hemiarthroplasty by Dr. Saunders 01/13/19 for Right d isplaced femoral neck fracture. She then was discharged to [facility] for rehab. Patient presented yesterday, 01/[address] demonstrates: 1. Large rim enhancing fluid collection containing gas centered deep to the surgical staple line measuring 3.8 x 5.4 x 22 cm. This extends through the surgical wound of the adjacent fascia with fluid also present within the trochanteric bursa. Findings highly suspicious for abscess given rim enhancement and gas within the collection. 2. Status post right hip hemiarthroplasty. The hardware appears appropriately position. No large hip effusion identified within limits of the exam. D/ / Aden Sands MD / Aden Sands MD Patient also had doppler RLE for calf pain and swelling however is negative for clot. Patient seen at bedside, alert and oriented x 3. No acute distress. Conversive and makes appropriate eye contact. On exam, patient with significant erythema to right hip with swelling. Ex quisitely tender about the erythematous area around incision. Calf tenderness to palpation. Neurovascularly intact. Patient appears to have chronic right ankle issue with difficulty with full dorsiflexion. Case was discussed earlier today with Dr. Saunders and Dr. Loomis. Plan for right revision hemiarthroplasty today with Dr. Loomis After review of planned procedure and indication as well as risks/benefits of intervention and all questions/concerns were addressed, informed consent obtained from patient. Patient to continue NPO today - patient denies any PO intake today Continue to hold Heparin preop and continue to hold until appx 24 hours postop Nonweightbearing to RLE until postop Discussed possible need for PICC line and IV abx with patient who verbalized understanding Please reach out with any questions or concerns Objective Vital signs: Vital Signs Temp Pulse Resp BP Pulse Ox 01/30/19 04:09 99.3 F 92 15 139/84 92 01/29/19 22:34 98.6 F 78 16 148/85 92 01/29/19 20:58 98.7 F 85 15 131/65 94 01/29/19 20:42 16 94 01/29/19 20:16 18 138/99 01/29/19 17:45 93 18 121/88 93 01/29/19 15:49 98.3 F 83 18 113/87 94 01/29/19 15:32 98.3 F 83 18 113/87 94 Intake and Output 01/29/19 01/29/19 01/30/19 15:59 23:59 07:59 Intake Total 100 / 100 Balance 100 / 100 Intake: IV Fluids 100 / 100 Zosyn 3.375 GM In 0.9 % Sodium 100 / 100 Chloride (Mini-Bag +) 100 ML @ 200 mls/hr IVP ONCE ONE Rx#: [id number] Other: Stool Size Moderate Stool Consistency liquid Stool Color Brown # Voids 1 # Bowel Movements 1 Weight 78.471 kg 78.5 kg Patient Weight 01/30/19 23:59 Weight 78.5 kg - Labs CBC & BMP: 01/30/19 06:18 01/30/19 06:18 Labs: Abnormal lab results RBC 3.55 M/mcL (3.82-4.97) L 01/30/19 06:18 Hgb 10.2 g/dL (11.5-15.4) L 01/30/19 06:18 Hct 32.7 % (35.3-44.9) L 01/30/19 06:18 MCHC 31.2 g/dL (31.6-35.5) L 01/30/19 06:18 Plt Count 437 K/mcL (140-400) H 01/30/19 06:18 Potassium 3.3 mEq/L (3.5-5.1) L 01/30/19 06:18 0.50 mg/dL (0.60-1.20) L 01/30/19 06:18 139 mg/L (Less than 10) H 01/29/19 15:54 Consult Discharge Plan - Plan Referrals: Jamshid Mead DO [Primary Care Provider] -
[2019-01-30] MEDS: Gabapentin 300 MG CAPSULE PO SCH ×3 (07:59→21:19)
[2019-01-30] MEDS: Budesonide/Formoterol 80/4.5 MDI IH SCH ×2 (08:10→20:16)
[2019-01-30] MEDS ORDERED: Potassium Chloride 40 MEQ, Lidocaine 1% 2 ML in D5% in Water 500 ML IVPB ONE (08:50)
--- NOTE | 2019-01-30 10:50 | Internal Med Progress Note ---
Hospitalist Progress Note - Encounter Date of Encounter: 01/30/19 Time of Encounter: 09:47 - Subjective Interval History: Patient seen and examined this morning at bedside. No acute overnight events. Due to had multiple episodes of diarrhea. Denies any fevers chills nausea or vomiting. Feeling about the same as yesterday. Has right lower extremity pain below the knee and in the calf region. - Exam Vitals: Temp Pulse Resp BP Pulse Ox 98.7 F 93 16 126/66 91 01/30/19 10:40 01/30/19 10:40 01/30/19 10:40 01/30/19 10:40 01/30/19 10:40 Exam: Constitutional: Vitals as noted. Conversant. No Apparent Distress. Respiratory : Clear to auscultation bilaterally. No accessory muscle use, rales, rhonchi or wheezes Cardiovascular : RRR, +S1, +S2. no murmur, gallop, rubs. No chest wall tenderness GI/Abdominal : Soft, Non-tender, Non-distended, normal bowel sounds, no perit blanco signs. no orgenomegaly or mass appreciated. no hernia. Musculoskeletal: pulses palpable and symmetrical in UE/LE. Rt calf tenderness, sensation intact. Rt hip incision with warmth, swelling, redness, induration and mild tenderness. FLuctuant lesion noted Neurological: AO X3, CN II-XII grossly intact, grossly normal motor and sensory exam. Skin: as above - Assessment and Plan (1) Surgical site infection Current Visit: No Status: Acute (2) Tenderness of right calf Current Visit: Yes Status: Acute (3) Cellulitis of right hip Current Visit: Yes Status: Acute (4) DVT prophylaxis Current Visit: No Status: Acute (5) COPD (chronic obstructive pulmonary disease) Current Visit: No Status: Chronic (6) HTN (hypertension) Current Visit: No Status: Chronic (7) Neuropathy Current Visit: No Status: Chronic (8) Anemia Current Visit: Yes Status: Acute (9) Thrombocytosis Current Visit: Yes Status: Acute - Summary of Assessment and Plan Summary of Assessment and Plan: Assessment Acute Surgical site infection Abscess Rt knee/calf pain thrombocytois hypokalemia Chronic COPD HTN Anemia Neuropathy Plan - Hip CT with large rim enhancing lesion with gas, finding suspicious of abscess. However does not appear septic - c/w empiric vancomycin and zosyn. f/u Blood and wound culture - NPO for surgery today. c/w maintainance LR at 60 - continue to hold home antihypertensives for now. - DVT study negative. Rt knee/calf pain likely referred pain. - Not in COPD exacerbation. c/w home inhalers and albuterol - c/w home gabapentin. We will confirm dosage. - Anemia, Hb stable since last discharge - repleted potassium - Thrombocytosis likely acute phase. Monitor for now. - heparin for DVT ppx. - Time Spent with Patient Total time spent is greater than 50% in coordination of care (as documented) at patient's floor/unit and/or counseling patient: Internal Medicine: Result - Labs CBC & Chem 7: 01/30/19 06:18 01/30/19 06:18 Labs: Short CBC 01/29/19 01/30/19 Range/Units 15:54 06:18 WBC 8.1 8.4 (4.3-11.1) K/mcL Hgb 10.1 L 10.2 L (11.5-15.4) g/dL Hct 32.6 L 32.7 L (35.3-44.9) % Plt Count 419 H 437 H (140-400) K/mcL Neutrophils # 5.6 6.2 (1.6-8.9) K/mcL BMP 01/29/19 01/30/19 15:54 06:18 Sodium 136 139 Potassium 3.6 3.3 L Chloride 101 103 Carbon Dioxide 27 25 BUN 9 9 Creatinine 0.49 L 0.50 L Glucose 99 96 Calcium 9.1 8.9 - Impressions Impressions Hip CT 01/29/19 15:59 IMPRESSION: 1. Large rim enhancing fluid collection containing gas centered deep to the surgical staple line measuring 3.8 x 5.4 x 22 cm. This extends through the surgical wound of the adjacent fascia with fluid also present within the trochanteric bursa. Findings highly suspicious for abscess given rim enhancement and gas within the collection. 2. Status post right hip hemiarthroplasty. The hardware appears appropriately position. No large hip effusion identified within limits of the exam. D/ / Aden Sands MD / Aden Sands MD Interpreting Provider: Aden Sands MD Consult Discharge Plan - Plan Referrals: Jamshid Mead DO [Primary Care Provider] - (5) COPD (chronic obstructive pulmonary disease) Qualifiers: COPD type: emphysema Emphysema type: unspecified Qualified Code(s): J43.9 - Emphysema, unspecified (6) HTN (hypertension) Qualifiers: Hypertension type: essential hypertension Qualified Code(s): I10 - Essential (primary) hypertension (8) Anemia Qualifiers: Anemia type: unspecified type Qualified Code(s): D64.9 - Anemia, unspecified
[2019-01-30 13:26] LABS: Adenovirus F 40/41 PCR Not detected (Not detect); Astrovirus PCR Not detected (Not detect); C.difficile Toxin A/B Gene PCR Not detected (Not detect); Campylobacter by PCR Not detected (Not detect); Cryptosporidium by PCR Not detected (Not detect); Cyclospora cayetanensis PCR Not detected (Not detect); E. coli O157 by PCR Not detected (Not detect); Entamoeba histolytica PCR Not detected (Not detect); Enteroaggregative E.coli(EAEC) Not detected (Not detect); Enteropathogenic E.coli(EPEC) Not detected (Not detect); Enterotoxigenic E.coli (ETEC) Not detected (Not detect); Giardia lamblia PCR Not detected (Not detect); Norovirus GI/GII PCR Not detected (Not detect); Plesiomonas shigelloides PCR Not detected (Not detect); Rotavirus A PCR Not detected (Not detect); Salmonella PCR Not detected (Not detect); Sapovirus PCR Not detected (Not detect); Shig/EnteroinvasiveE coli EIEC Not detected (Not detect); Shigalike tox-prod E coli STEC Not detected (Not detect); Vibrio PCR Not detected (Not detect); Vibrio cholerae PCR Not detected (Not detect); Yersinia enterocolitica PCR Not detected (Not detect)
[2019-01-30] MEDS ORDERED: Ethanol\\Acetic Acid\\Na Ace\\Ben 1,000 ML IRRIG.SOLN IR ONE (16:27)
--- NOTE | 2019-01-30 16:34 | Anesthesia Evaluation PreOp ---
Date of Encounter: 01/30/19 Time of Encounter: 16:31 - Past History Planned Operation: R leslye hip revision Cardiac History: HTN, Hyperlipidemia, Other (EF 60-65%) Pulmonary History: Former smoker, COPD BOX STRAPPER History: Other (mild dementia, lee LE neuropathy) Other Medical History: Denies Any Significant HX Anesthesia History: No Prior Anesthetic Complications (R hip, paul, hysterectomy, R shoulder), Past Anesthesia Alcohol Use: none Drug use: none Medications and Allergies Albuterol Neb [Proventil Neb] 3 ml IH Q4H PRN 01/14/19 [History] Albuterol Sulfate [Ventolin Hfa] 2 puff PO Q4H PRN 01/14/19 [History] Budesonide/Formoterol 80/4.5 [Symbicort 80/4.5] 1 puff PO BID 01/14/19 [History] Calcium Carbonate/Vitamin D3 [Calcium 600-Vit D3 400 Tablet] 1 tab PO BID 01/14/19 [History] Furosemide [Lasix] 20 mg PO DAILY 01/14/19 [History] Gabapentin [Neurontin] 300 mg PO TID 01/14/19 [History] Losartan Potassium [Cozaar] 100 mg PO DAILY 01/14/19 [History] Omeprazole [PriLOSEC] 40 mg PO DAILY 01/14/19 [History] Ondansetron HCl [Zofran] 4 mg PO Q8H PRN 01/14/19 [History] PARoxetine HCl [Paroxetine HCl] 40 mg PO DAILY 01/14/19 [History] Ranitidine HCl [Heartburn Relief] 150 mg PO BID 01/14/19 [History] Umeclidinium [place] [Incruse Ellipta] 1 puff PO DAILY 01/14/19 [History] hydrOXYzine HCl [Hydroxyzine HCl] 25 mg PO Q6H PRN 01/14/19 [History] Acetaminophen [Tylenol] 650 mg PO Q6HR PRN tablet 01/15/19 [Rx] Aspirin Enteric Coated [Aspirin EC] 325 mg PO DAILY tablet. 01/15/19 [Rx] Docusate [Colace] 100 mg PO BID capsule 01/15/19 [Rx] Oxycodone HCl [Roxybond] 5 mg PO Q6H PRN 01/30/19 [History] Sulfamethoxazole/Trimeth DS [Bactrim DS] 1 tab PO BID 01/30/19 [History] Allergy/AdvReac Type Severity Reaction Status Date / Time No Known Allergies Allergy Verified 01/14/19 18:03 - Meds/Allergy Pre-op Review Medications Reviewed: Yes Allergies Reviewed: Yes Beta Blockers on Current Med List: No Anesthesia Results - Labs 01/30/19 06:18 01/30/19 06:18 - Imaging EKG: report reviewed (SINUS RHYTHM INCOMPLETE RIGHT BUNDLE BRANCH BLOCK MODERATE ST DEPRESSION Electronically Signed On 01-14-2019 22:53:47 EDT by Rema Belle) Additional studies: Impressions: Technically sub-optimal due to poor echocardiographic windows. LVEF 60-65%. Normal left ventricular diastolic function. Mild concentric left ventricular hypertrophy. The right ventricle was not well visualized, normal right ventricular function. No obvious significant valvular dysfunction No evidence of pulmonary hypertension. Anesthesia Exam Vital Signs/O2 Sat, Most Current Temp Pulse Resp BP Pulse Ox 98.7 F 93 16 126/66 91 01/30/19 10:40 01/30/19 10:40 01/30/19 10:40 01/30/19 10:40 01/30/19 10:40 Weight: 78kg NPO (# of Hours): >8 - HEENT Pupil (Motor): Pupils equal, EOMI Mallampati: II Teeth: Edentulous Oral Opening: Greater than 3 - BOX STRAPPER LOC: Oriented BOX STRAPPER Motor: Normal RUE, Normal LUE, Normal RLE, Normal LLE, Normal Face BOX STRAPPER Sensory: Normal: RUE, LUE, RLE, LLE, Face - Cardiac Rhythm: Regular - Pulmonary Breath Sounds: bilateral Clear Respiratory Effort: Symmetrical Anesthesia Assess/Plan ASA Score: 3 Level of consciousness: Cooperative Anesthetic Plan: General Monitoring Plan: Standard Monitors Recovery Plan: PACU
[2019-01-30] MEDS ORDERED: Ondansetron 4 MG/2 ML VIAL ONE (17:28)
[2019-01-30] MEDS ORDERED: Dexamethasone 4 MG/ML VIAL ONE (17:28)
[2019-01-30] MEDS ORDERED: *HR* Propofol 200 MG/20 ML VIAL IVP ONE (17:28)
[2019-01-30] MEDS ORDERED: *HR* FentaNYL (PF) 100 MCG/2 ML VIAL ONE (17:28)
[2019-01-30] MEDS ORDERED: *HR* HYDROMORPHONE 2 MG/ML VIAL ONE (17:28)
[2019-01-30] MEDS ORDERED: Lidocaine -MPF 2% 2 ML VIAL ONE (17:28)
--- NOTE | 2019-01-30 18:21 | Orthopedic Operative Note ---
Date of procedure: 01/30/19 Pre-op diagnosis: Infected right hip leslye- Post-op diagnosis: same Procedure: Procedure: Right Revision femur of hip Hemiarthroplasty Estimated blood loss: 300 cc Hardware: Metal and polyethylene replacement. 10 cemented stem, -3 femoral head, 51 bipolar head, Biomet Procedural Notes: Infected right hip Operative procedure: The patient was brought to the operating room and placed on the operating room table. After general anesthesia was administered the patient was placed in the lateral decubitus position with the operative leg up. All pressure points were padded appropriately and the head was stabilized in the neutral position. The operative extremity was prepped and draped in the sterile surgical fashion patient received IV antibiotic prior to skin incision. Patient had extensive erythema with drainage. A standard posterior approach is made to the operative hip, around the old incision. The incision was made through the skin and subcutaneous tissue hemostasis was obtained with Bovie cautery. Subcutaneous tissue is filled with hemorrhagic fibrinous tissue. This area was irrigated with 1 L of pulse irrigation of an antibacterial solution and 3 L of pulse irrigation normal saline. Cultures were obtained prior to this. The fascia had an area medication with the superficial hematoma infected. The fascia was opened this area was irrigated out with 1 L of antibacterial solution and 2 L of pulse irrigation. The femoral component was loose and removed. The femur was reamed up to a size 10, a 10 stem was cemented and antibiotic cement in 20 degrees of anteversion. trial reduction revealed excellent stability with a -3 femoral head and a 51 bipolar head. The trials were removed and the real implants were impacted in place. The hip was reduced, patient had apparent equal leg lengths. The hip had excellent stability with forward flexion to 90 degrees adduction of 30 degrees and internal rotation of 60 degrees. The hip had no shuck. The hips after 2 minutes with a antibacterialsolution. It was irrigated out with 2 L of pulse irrigation. Fascia was closed with a running #2 PDS suture. The deep tissue was irrigated and closed deep with #1 PDS suture superficially with 0 PDS suture and skin was closed with skin hardeep. The patient was placed in a sterile dressing and abduction pillow. The patient was extubated and transferred to the recovery room in stable condition. Anesthesia: GETA Surgeon: Cali Loomis Was there an clinical trials assistant present: No Estimated blood loss (cc): 300 Condition: stable Disposition: PACU
[2019-01-30] MEDS: *HR* HYDROmorphone 2 MG/ML SYRINGE IVP SCH ×4 (18:34→19:07)
[2019-01-30] MEDS ORDERED: *HR* HYDROmorphone (PF) 1 MG/ML SYRINGE ONE (18:34)
[2019-01-30 18:52] LABS: Hemoglobin 10.4 g/dL (11.5-15.4)
--- NOTE | 2019-01-30 20:19 | Anesthesia Evaluation Post Op ---
Date of Encounter: 01/30/19 Time of Encounter: 19:30 - Vital Signs Vital Signs: Vital Signs/O2 Sat/Glucose, Most Current Temp Pulse Resp BP Pulse Ox 01/30/19 20:18 14 96 01/30/19 19:13 98.9 F 109 18 123/90 95 01/30/19 19:03 111 18 130/79 95 01/30/19 18:53 109 20 122/69 95 01/30/19 18:43 98.9 F 109 18 110/77 95 01/30/19 18:33 109 20 137/118 96 01/30/19 18:23 111 20 130/100 96 01/30/19 18:13 99.4 F 93 18 135/91 96 - Lungs Lungs: Clear Ascult./Percussion - Airway Airway: Non-obstructed - Cardiovascular Regular Rate - Mental Status Mental Status: Alert & Oriented, Answers Appropriately - Pain Pain Scale: 0 - Nausea Vomiting Nausea Vomiting: Not Present - Hydration Hydration: Tolerates oral liquids - Discharge PostOp Status: Transfer Patient to floor
[2019-01-30] MEDS: Acetaminophen 325 MG TABLET PO PRN (21:18)
[2019-01-31 03:04] LABS: Hematocrit 32.5 % (35.3-44.9); Hemoglobin 9.7 g/dL (11.5-15.4); Mean Corpuscular Hemoglobin 28.6 pg (28.0-33.3); Mean Corpuscular Volume 95.9 fL (83.0-100.0); Red Blood Count 3.39 M/mcL (3.82-4.97)
[2019-01-31 03:05] LABS: Basophils % 0.1 %; Immature Granulocytes % 0.3 % (0-4); Lymphocytes # 1.6 K/mcL (0.6-4.6); Lymphocytes % 12.5 %; Mean Corpuscular HGB Conc 29.8 g/dL (31.6-35.5); Mean Platelet Volume 10.4 fL (9.4-12.4); Monocytes # 0.8 K/mcL (0.0-1.3); Monocytes % 6.2 %; Neutrophils # 10.4 K/mcL (1.6-8.9); Platelet Count 428 K/mcL (140-400); Red Cell Distribution Width 13.1 % (11.5-14.5); Segmented Neutrophils % 80.9 %; White Blood Count 12.8 K/mcL (4.3-11.1)
[2019-01-31] MEDS: Piperacillin/Tazobactam 3.375 GM in 0.9 % Sodium Chloride Mini Bag 100 ML IVPB SCH ×3 (03:13→19:41)
[2019-01-31 03:37] LABS: BUN/Creatinine Ratio 19 (6-26); Blood Urea Nitrogen 11 mg/dL (8-23); Calcium 8.8 mg/dL (8.6-10.3); Carbon Dioxide 26 mEq/L (23-29); Chloride 105 mEq/L (98-107); Glucose 174 mg/dL (70-105); Osmolality,Calculated 294 (280-300); Potassium 4.2 mEq/L (3.5-5.1); Sodium 140 mEq/L (136-145); eGFR For African Americans > 60 (> 60); eGFR For Non-African Americans > 60 (> 60)
[2019-01-31] MEDS: *HR* OxyCODONE Oral Soln 5 MG/5 ML UD.LIQ PO PRN ×3 (03:38→19:07)
--- NOTE | 2019-01-31 06:25 | Orthopedics Progress Note ---
Date of Encounter: 01/31/19 Time of Encounter: 06:25 Subjective Principal diagnosis: right hip infection Interval history: Patient was seen this morning doing well without complaints. Afebrile vital signs stable. Operative extremity: Neurovascularly intact Dressing clean dry and intact Calves nontender Assessment and plan: Continue with postoperative care Objective Vital signs: Vital Signs Temp Pulse Resp BP Pulse Ox 01/31/19 03:44 98.1 F 71 16 110/70 93 01/30/19 20:18 14 96 01/30/19 19:30 98.1 F 113 16 128/70 01/30/19 19:13 98.9 F 109 18 123/90 95 01/30/19 19:03 111 18 130/79 95 01/30/19 18:53 109 20 122/69 95 01/30/19 18:43 98.9 F 109 18 110/77 95 01/30/19 18:33 109 20 137/118 96 01/30/19 18:23 111 20 130/100 96 01/30/19 18:13 99.4 F 93 18 135/91 96 01/30/19 10:40 98.7 F 93 16 126/66 91 01/30/19 08:10 16 92 Intake and Output 01/30/19 01/30/19 01/31/19 15:59 23:59 07:59 Intake Total 100 / 200 250 / 250 Output Total 75 / 375 300 / 375 60 / 60 Balance 25 / -175 -300 / -175 190 / 190 Intake: IV Fluids 100 / 200 Zosyn 3.375 GM In 0.9 % Sodium 100 / 200 Chloride (Mini-Bag +) 100 ML @ 25 mls/hr IVPB Q8HR [facility] Rx#: [id number] Oral 250 / 250 Output: Urine 75 / 75 0 / 0 Estimated Blood Loss 300 / 300 Wound Drainage 60 / 60 Right Hip 60 / 60 Other: Stool Size Smear Stool Consistency liquid Stool Color Yellow # Voids 1 # Bowel Movements 1 - Labs CBC & BMP: 01/31/19 02:14 01/31/19 02:14 Labs: Abnormal lab results WBC 12.8 K/mcL (4.3-11.1) H D 01/31/19 02:14 RBC 3.39 M/mcL (3.82-4.97) L 01/31/19 02:14 Hgb 9.7 g/dL (11.5-15.4) L 01/31/19 02:14 Hct 32.5 % (35.3-44.9) L 01/31/19 02:14 MCHC 29.8 g/dL (31.6-35.5) L 01/31/19 02:14 Plt Count 428 K/mcL (140-400) H 01/31/19 02:14 10.4 K/mcL (1.6-8.9) H 01/31/19 02:14 Potassium 3.3 mEq/L (3.5-5.1) L 01/30/19 06:18 0.59 mg/dL (0.60-1.20) L 01/31/19 02:14 Glucose 174 mg/dL (70-105) H 01/31/19 02:14 139 mg/L (Less than 10) H 01/29/19 15:54 Consult Discharge Plan - Plan Referrals: Jamshid Mead DO [Primary Care Provider] -
[2019-01-31] MEDS: Acetaminophen 325 MG TABLET PO PRN ×3 (06:42→21:56)
[2019-01-31] MEDS ORDERED: Sennosides 8.6 MG TABLET PO PRN (07:15)
[2019-01-31] MEDS ORDERED: Albuterol 2.5 MG/3 ML NEBULIZER IH PRN (07:15)
[2019-01-31] MEDS ORDERED: Naloxone 0.4 MG/ML INJ IVP PRN (07:15)
[2019-01-31] MEDS ORDERED: *HR* Promethazine 25 MG/ML VIAL IVP PRN (07:15)
[2019-01-31] MEDS ORDERED: Temazepam 15 MG CAPSULE PO PRN (07:15)
[2019-01-31] MEDS ORDERED: MOM Conc 10 ML UD.LIQ PO PRN (07:15)
[2019-01-31] MEDS ORDERED: Piperacillin/Tazobactam 3.375 GM in 0.9 % Sodium Chloride Mini Bag 100 ML IVPB SCH (08:00)
--- NOTE | 2019-01-31 08:05 | Internal Med Progress Note ---
Hospitalist Progress Note - Encounter Date of Encounter: 01/31/19 Time of Encounter: 08:03 - Subjective Interval History: Seen and examined this morning. No acute overnight events. Right lower extremity Pain is improved. Denies fevers chills nausea vomiting or diarrhea. - Exam Vitals: Temp Pulse Resp BP Pulse Ox 98.0 F 81 19 104/65 92 01/31/19 07:17 01/31/19 07:17 01/31/19 07:17 01/31/19 07:17 01/31/19 07:17 Exam: Constitutional: Vitals as noted. Conversant. No Apparent Distress. Respiratory : CTAB. No accessory muscle use, rales, rhonchi or wheezes Cardiovascular : RRR, +S1, +S2. no murmur, gallop, rubs. No chest wall tenderness GI/Abdominal : Soft, Non-tender, Non-distended, normal bowel sounds, no peritoneal signs. no orgenomegaly or mass appreciated. no hernia. Musculoskeletal: pulses palpable and symmetrical in UE/LE. No rt calf t enderness. Rt LE sensation intact. Rt hip incision with minimal redness and swelling. Has drain in place. Neurological: AO X3, CN II-XII grossly intact, grossly normal motor and sensory exam. Skin: as above - Assessment and Plan (1) Surgical site infection Current Visit: Yes Status: Acute (2) Tenderness of right calf Current Visit: Yes Status: Acute (3) Cellulitis of right hip Current Visit: Yes Status: Acute (4) DVT prophylaxis Current Visit: No Status: Acute (5) COPD (chronic obstructive pulmonary disease) Current Visit: No Status: Chronic (6) HTN (hypertension) Current Visit: No Status: Chronic (7) Neuropathy Current Visit: No Status: Chronic (8) Anemia Current Visit: Yes Status: Acute (9) Thrombocytosis Current Visit: Yes Status: Acute - Summary of Assessment and Plan Summary of Assessment and Plan: Assessment Acute Surgical site infection Rt knee/calf pain thrombocytosis hypokalemia-resolved Leukocytosis Chronic COPD HTN Anemia Neuropathy Plan - Hip CT with large rim enhancing lesion with gas, finding suspicious of abscess. s/p surgery on 01/30 with rt revision of femur of hip. Hemorrhagic fluid was drained. Now with drain in place. - c/w empiric vancomycin and zosyn. f/u Blood, wound culture and intraopt cultures, NGTD. c/w pain regimen. Pain is controlled. - continue to hold home antihypertensives for now. - DVT study negative. Rt knee/calf pain likely referred pain. - Not in COPD exacerbation. c/w home inhalers and albuterol - c/w home gabapentin. - Anemia, Hb stable since last discharge. leukocytosis likely reactive. Monitor for now. On antibiotics. - Thrombocytosis likely acute phase. Monitor for now. - epcd for DVT ppx. - Time Spent with Patient Total time spent is greater than 50% in coordination of care (as documented) at patient's floor/unit and/or counseling patient: Internal Medicine: Result - Labs CBC & Chem 7: 01/31/19 02:14 01/31/19 02:14 Labs: Short CBC 01/30/19 01/31/19 Range/Units 18:36 02:14 WBC 12.8 H D (4.3-11.1) K/mcL Hgb 10.4 L 9.7 L (11.5-15.4) g/dL Hct 34.0 L 32.5 L (35.3-44.9) % Plt Count 428 H (140-400) K/mcL Neutrophils # 10.4 H (1.6-8.9) K/mcL BMP 01/31/19 02:14 Sodium 140 Potassium 4.2 D Chloride 105 Carbon Dioxide 26 BUN 11 Creatinine 0.59 L Glucose 174 H Calcium 8.8 - Impressions Impressions Hip X-Ray 01/30/19 16:35 IMPRESSION: Postsurgical changes of the right hip. D/ / Laureen Rinaldi Cha, MD / Laureen Rinaldi Cha, MD Interpreting Provider: Laureen Rinaldi Cha, MD Consult Discharge Plan - Plan Referrals: Jamshid Mead DO [Primary Care Provider] - (5) COPD (chronic obstructive pulmonary disease) Qualifiers: COPD type: emphysema Emphysema type: unspecified Qualified Code(s): J43.9 - Emphysema, unspecified (6) HTN (hypertension) Qualifiers: Hypertension type: essential hypertension Qualified Code(s): I10 - Essential (primary) hypertension (8) Anemia Qualifiers: Anemia type: unspecified type Qualified Code(s): D64.9 - Anemia, unspecified
[2019-01-31 08:42] LABS: BUN/Creatinine Ratio 21 (6-26); Blood Urea Nitrogen 11 mg/dL (8-23); Calcium 8.8 mg/dL (8.6-10.3); Carbon Dioxide 24 mEq/L (23-29); Chloride 103 mEq/L (98-107); Glucose 117 mg/dL (70-105); Osmolality,Calculated 284 (280-300); Sodium 137 mEq/L (136-145); eGFR For African Americans > 60 (> 60); eGFR For Non-African Americans > 60 (> 60)
[2019-01-31 08:43] LABS: Basophils % 0.2 %; Eosinophils % 0.1 %; Hematocrit 30.8 % (35.3-44.9); Hemoglobin 9.4 g/dL (11.5-15.4); Immature Granulocytes % 0.5 % (0-4); Lymphocytes # 2.1 K/mcL (0.6-4.6); Lymphocytes % 17.5 %; Mean Corpuscular HGB Conc 30.5 g/dL (31.6-35.5); Mean Corpuscular Hemoglobin 28.8 pg (28.0-33.3); Mean Corpuscular Volume 94.5 fL (83.0-100.0); Mean Platelet Volume 10.2 fL (9.4-12.4); Monocytes % 8.6 %; Neutrophils # 8.9 K/mcL (1.6-8.9); Platelet Count 441 K/mcL (140-400); Red Blood Count 3.26 M/mcL (3.82-4.97); Segmented Neutrophils % 73.1 %; White Blood Count 12.1 K/mcL (4.3-11.1)
[2019-01-31] MEDS: Gabapentin 300 MG CAPSULE PO SCH ×3 (08:58→21:56)
[2019-01-31] MEDS: Ascorbic Acid 500 MG TABLET PO SCH ×2 (08:58→16:33)
[2019-01-31] MEDS: Multivit/Ca/Min/Fe/FA 1 TAB TABLET PO SCH (08:58)
[2019-01-31] MEDS: Budesonide/Formoterol 80/4.5 MDI IH SCH ×2 (09:21→21:48)
[2019-01-31 10:39] LABS: Anisocytosis 1+ (Not Present); Platelet Estimate Normal (Normal)
[2019-01-31] MEDS ORDERED: Lidocaine -MPF 1% 5 ML AMPUL INFILT ONE (11:40)
--- NOTE | 2019-01-31 12:25 | Event Note ---
Date of Encounter: 01/31/19 Time of Encounter: 12:00 Date of procedure: 01/30/19 Pre-op diagnosis: Infected right hip leslye- Post-op diagnosis: same Procedure: Right Revision femur of hip Hemiarthroplasty POD#1 PCR - Patient seen at bedside. A&Ox3 Dressing and incision c/d/i - Erythema starting to subside. CHRISTIN drain in place with bloody drainage. No calf tenderness, erythema, or warmth. Neurovascularly intact b/l LE. Labwork, vitals, and medications reviewed. Pain control: Adequate Participating in therapy. All questions and concerns addressed. Educated on use of incentive spirometer, ambulation, and hydration. Patient educated on post-operative restrictions and care. Addressed: Discussed case with Dr. Loomis. PICC needed - placement as soon as blood cultures have resulted. D/C plan: Home with IC antibiotics x 6 weeks. Total hip precautions x 6 weeks.
[2019-01-31] MEDS: HYDROcodone BIT/Homatropine 5 MG TABLET PO PRN (14:15)
[2019-01-31] MEDS: Ringers Solution, Lactated 1,000 ML IVC SCH ×3 (19:13→23:03)
[2019-02-01] MEDS: Piperacillin/Tazobactam 3.375 GM in 0.9 % Sodium Chloride Mini Bag 100 ML IVPB SCH ×3 (03:04→19:13)
[2019-02-01] MEDS: *HR* OxyCODONE Oral Soln 5 MG/5 ML UD.LIQ PO PRN ×3 (03:24→20:58)
[2019-02-01 04:09] LABS: Basophils % 0.2 %; Eosinophils # 0.3 K/mcL (0.0-0.6); Eosinophils % 2.4 %; Hematocrit 27.7 % (35.3-44.9); Hemoglobin 8.6 g/dL (11.5-15.4); Immature Granulocytes % 0.4 % (0-4); Lymphocytes # 2.5 K/mcL (0.6-4.6); Lymphocytes % 21.6 %; Mean Corpuscular Hemoglobin 29.7 pg (28.0-33.3); Mean Corpuscular Volume 95.5 fL (83.0-100.0); Mean Platelet Volume 10.1 fL (9.4-12.4); Monocytes # 0.8 K/mcL (0.0-1.3); Monocytes % 7.4 %; Neutrophils # 7.8 K/mcL (1.6-8.9); Platelet Count 380 K/mcL (140-400); Red Cell Distribution Width 13.1 % (11.5-14.5); White Blood Count 11.4 K/mcL (4.3-11.1)
[2019-02-01 04:29] LABS: BUN/Creatinine Ratio 13 (6-26); Blood Urea Nitrogen 6 mg/dL (8-23); Calcium 8.5 mg/dL (8.6-10.3); Carbon Dioxide 26 mEq/L (23-29); Chloride 107 mEq/L (98-107); Glucose 106 mg/dL (70-105); Osmolality,Calculated 286 (280-300); Potassium 3.5 mEq/L (3.5-5.1); Sodium 139 mEq/L (136-145); eGFR For African Americans > 60 (> 60); eGFR For Non-African Americans > 60 (> 60)
[2019-02-01 04:51] LABS: Platelet Estimate Normal (Normal)
[2019-02-01] MEDS: Multivit/Ca/Min/Fe/FA 1 TAB TABLET PO SCH (07:43)
[2019-02-01] MEDS: Ascorbic Acid 500 MG TABLET PO SCH ×2 (07:43→16:00)
[2019-02-01] MEDS: Gabapentin 300 MG CAPSULE PO SCH ×3 (07:43→20:58)
[2019-02-01] MEDS: Acetaminophen 325 MG TABLET PO PRN (07:46)
--- NOTE | 2019-02-01 08:49 | Internal Med Progress Note ---
Hospitalist Progress Note - Encounter Date of Encounter: 02/01/19 Time of Encounter: 08:49 - Subjective Interval History: Patient seen and examined this morning at bedside. No acute overnight events. Pain much better but still present. Denies any fevers chills nausea vomiting or diarrhea. Denies bowel or bladder complaints. - Exam Vitals: Temp Pulse Resp BP Pulse Ox 99.2 F 86 18 130/81 96 01/31/19 23:38 01/31/19 23:38 01/31/19 23:38 01/31/19 23:38 01/31/19 23:38 Exam: Constitutional: Vitals as noted. Conversant. No Apparent Distress. Respiratory : CTAB. No accessory muscle use, rales, rhonchi or wheezes Cardiovascular : RRR, +S1, +S2. no murmur, gallop, rubs. No chest wall tendern ess GI/Abdominal : Soft, Non-tender, Non-distended, normal bowel sounds, no per itoneal signs. no orgenomegaly or mass appreciated. no hernia. Musculoskeletal: pulses palpable and symmetrical in UE/LE. No rt calf tenderness. Rt LE sensation intact. Rt hip incision with minimal redness and swelling. Has drain in place. Neurological: AO X3, CN II-XII grossly intact, grossly normal motor and sensory exam. Skin: as above - Assessment and Plan (1) Surgical site infection Current Visit: Yes Status: Acute (2) Tenderness of right calf Current Visit: Yes Status: Acute (3) Cellulitis of right hip Current Visit: Yes Status: Acute (4) DVT prophylaxis Current Visit: No Status: Acute (5) COPD (chronic obstructive pulmonary disease) Current Visit: No Status: Chronic (6) HTN (hypertension) Current Visit: No Status: Chronic (7) Neuropathy Current Visit: No Status: Chronic (8) Anemia Current Visit: Yes Status: Acute (9) Thrombocytosis Current Visit: Yes Status: Acute - Summary of Assessment and Plan Summary of Assessment and Plan: Assessment Acute Surgical site infection Rt knee/calf pain thrombocytosis hypokalemia-resolved Leukocytosis Chronic COPD HTN Anemia Neuropathy Plan - Hip CT with large rim enhancing lesion with gas, finding suspicious of abscess. s/p surgery on 01/30 with rt revision of femur of hip. Hemorrhagic fluid was drained. Now with drain in place. - c/w empiric vancomycin and zosyn. Wound growing GNR. f/u final Blood and intraopt cultures, NGTD. Will descalate tomorrow based on cultures. c/w pain reg imen. Pain is controlled. - continue to hold home antihypertensives for now. - DVT study negative. Rt knee/calf pain likely referred pain. - Not in COPD exacerbation. c/w home inhalers and albuterol - c/w home gabapentin. - Anemia, Hb stable since last discharge. leukocytosis likely reactive. Monitor for now. On antibiotics. - Thrombocytosis resolved - epcd for DVT ppx. - Time Spent with Patient Total time spent is greater than 50% in coordination of care (as documented) at patient's floor/unit and/or counseling patient: Internal Medicine: Result - Labs CBC & Chem 7: 02/01/19 03:35 02/01/19 03:35 Labs: Short CBC 01/31/19 02/01/19 Range/Units 07:57 03:35 WBC 12.1 H 11.4 H (4.3-11.1) K/mcL Hgb 9.4 L 8.6 L (11.5-15.4) g/dL Hct 30.8 L 27.7 L (35.3-44.9) % Plt Count 441 H 380 (140-400) K/mcL Neutrophils # 8.9 7.8 (1.6-8.9) K/mcL BMP 02/01/19 03:35 Sodium 139 Potassium 3.5 Chloride 107 Carbon Dioxide 26 BUN 6 L Creatinine 0.47 L Glucose 106 H Calcium 8.5 L Consult Discharge Plan - Plan Referrals: Jamshid Mead DO [Primary Care Provider] - ____ (5) COPD (chronic obstructive pulmonary disease) Qualifiers: COPD type: emphysema Emphysema type: unspecified Qualified Code(s): J43.9 - Emphysema, unspecified (6) HTN (hypertension) Qualifiers: Hypertension type: essential hypertension Qualified Code(s): I10 - Essential (primary) hypertension (8) Anemia Qualifiers: Anemia type: unspecified type Qualified Code(s): D64.9 - Anemia, unspecified
--- NOTE | 2019-02-01 10:06 | Orthopedics Progress Note ---
Date of Encounter: 02/01/19 Time of Encounter: 10:05 - Assessment and Plan (1) Surgical site infection Current Visit: Yes Status: Acute Subjective Principal diagnosis: right hip infection Interval history: S: Patient is seen today and has no complaints. O: Afebrile and vital signs are stable Operative extremity dressing is clean, dry, and intact. Neurovascularly intact distally Cultures with gram-negative species A: Right revision hip arthroplasty for infection P: Resume postoperative care Antibiotics per primary team Awaiting ECF and antibiotic recommendations Objective Vital signs: Vital Signs Temp Pulse Resp BP Pulse Ox 01/31/19 23:38 99.2 F 86 18 130/81 96 01/31/19 21:48 16 93 01/31/19 19:07 99.5 F 87 18 132/76 93 01/31/19 15:42 99.2 F 80 18 130/77 93 01/31/19 11:43 98.6 F 84 19 107/68 93 Intake and Output 01/31/19 02/01/19 02/01/19 23:59 07:59 15:59 Intake Total 220 / 1040 100 / 340 240 / 340 Output Total 40 / 140 25 / 25 Balance 180 / 900 100 / 315 215 / 315 Intake: IV Fluids 100 / 550 100 / 100 Zosyn 3.375 GM In 0.9 % Sodium 100 / 200 100 / 100 Chloride (Mini-Bag +) 100 ML @ 25 mls/hr IVPB Q8H [facility] Rx#: [id number] Oral 120 / 490 240 / 240 Output: Wound Drainage 40 / 140 25 / 25 Right Hip 40 / 140 25 / 25 Other: Meal Dinner Breakfast Percent of Meal Consumed 70% 60% Stool Size Smear Moderate Stool Consistency formed loose Stool Color Brown Brown # Voids 1 1 # Bowel Movements 1 - Labs CBC & BMP: 02/01/19 03:35 02/01/19 03:35 Labs: Abnormal lab results WBC 11.4 K/mcL (4.3-11.1) H 02/01/19 03:35 RBC 2.90 M/mcL (3.82-4.97) L 02/01/19 03:35 Hgb 8.6 g/dL (11.5-15.4) L 02/01/19 03:35 Hct 27.7 % (35.3-44.9) L 02/01/19 03:35 MCHC 31.0 g/dL (31.6-35.5) L 02/01/19 03:35 Plt Count 441 K/mcL (140-400) H 01/31/19 07:57 10.4 K/mcL (1.6-8.9) H 01/31/19 02:14 1+ (Not Present) A 01/31/19 07:57 Potassium 3.3 mEq/L (3.5-5.1) L 01/30/19 06:18 BUN 6 mg/dL (8-23) L 02/01/19 03:35 0.47 mg/dL (0.60-1.20) L 02/01/19 03:35 Glucose 106 mg/dL (70-105) H 02/01/19 03:35 Calcium 8.5 mg/dL (8.6-10.3) L 02/01/19 03:35 139 mg/L (Less than 10) H 01/29/19 15:54 Consult Discharge Plan - Plan Referrals: Jamshid Mead DO [Primary Care Provider] -
[2019-02-01] MEDS: Budesonide/Formoterol 80/4.5 MDI IH SCH ×2 (11:19→20:16)
[2019-02-01] MEDS: Ringers Solution, Lactated 1,000 ML IVC SCH (14:46)
[2019-02-01] MEDS ORDERED: Aminoglycoside Consult 1 EACH MC ONE (15:57)
[2019-02-01] MEDS: HYDROcodone BIT/Homatropine 5 MG TABLET PO PRN (16:00)
[2019-02-02] MEDS: Ringers Solution, Lactated 1,000 ML IVC SCH ×3 (03:41→23:58)
[2019-02-02] MEDS: Piperacillin/Tazobactam 3.375 GM in 0.9 % Sodium Chloride Mini Bag 100 ML IVPB SCH ×3 (03:41→19:35)
[2019-02-02] MEDS: *HR* OxyCODONE Oral Soln 5 MG/5 ML UD.LIQ PO PRN (06:45)
[2019-02-02] MEDS: Budesonide/Formoterol 80/4.5 MDI IH SCH ×2 (07:40→20:41)
--- NOTE | 2019-02-02 07:46 | Orthopedics Progress Note ---
Date of Encounter: 02/02/19 Time of Encounter: 07:46 - Assessment and Plan (1) Surgical site infection Current Visit: Yes Status: Acute Subjective Principal diagnosis: right hip infection Interval history: S: Patient is seen today and has no complaints. O: Afebrile and vital signs are stable Operative extremity dressing is clean, dry, and intact. Neurovascularly intact distally Cultures showing pseudomonas aeruginosa A: Right revision hip arthroplasty for infection P: Resume postoperative care We will pull during today. Antibiotics per primary team Awaiting ECF and antibiotic recommendations Objective Vital signs: Vital Signs Temp Pulse Resp BP Pulse Ox 02/02/19 02:42 98.0 F 90 16 133/81 93 02/01/19 23:49 98.7 F 90 16 147/84 94 02/01/19 20:39 99.0 F 86 16 145/82 95 02/01/19 20:16 18 94 02/01/19 15:31 99.2 F 86 17 128/78 94 02/01/19 12:40 97.7 F 78 17 118/63 94 02/01/19 11:19 16 128/78 93 Intake and Output 02/01/19 02/01/19 02/02/19 15:59 23:59 07:59 Intake Total 340 / 640 200 / 640 350 / 350 Output Total 30 / 75 45 / 75 20 / 20 Balance 310 / 565 155 / 565 330 / 330 Intake: IV Fluids 100 / 300 100 / 300 250 / 250 Zosyn 3.375 GM In 0.9 % Sodium 100 / 300 100 / 300 Chloride (Mini-Bag +) 100 ML @ 25 mls/hr IVPB Q8H [facility] Rx#: [id number] Vancocin 750 MG In 0.9 % Sodium 250 / 250 Chloride 250 ML @ 250 mls/hr IVPB Q12H [facility] Rx#:[id number] Oral 240 / 340 100 / 340 100 / 100 Output: Urine 0 / 0 Wound Drainage 30 / 75 45 / 75 20 / 20 Right Hip 30 / 75 45 / 75 20 / 20 Other: Meal Breakfast Percent of Meal Consumed 60% Stool Size Moderate Moderate Stool Consistency loose soft Stool Characteristics Normal for Patient Stool Color Brown Green # Voids 1 1 1 # Bowel Movements 1 Weight 78 kg Patient Weight 02/02/19 23:59 Weight 78 kg - Labs CBC & BMP: 02/01/19 03:35 02/01/19 03:35 Labs: Abnormal lab results WBC 11.4 K/mcL (4.3-11.1) H 02/01/19 03:35 RBC 2.90 M/mcL (3.82-4.97) L 02/01/19 03:35 Hgb 8.6 g/dL (11.5-15.4) L 02/01/19 03:35 Hct 27.7 % (35.3-44.9) L 02/01/19 03:35 MCHC 31.0 g/dL (31.6-35.5) L 02/01/19 03:35 Plt Count 441 K/mcL (140-400) H 01/31/19 07:57 10.4 K/mcL (1.6-8.9) H 01/31/19 02:14 1+ (Not Present) A 01/31/19 07:57 Potassium 3.3 mEq/L (3.5-5.1) L 01/30/19 06:18 BUN 6 mg/dL (8-23) L 02/01/19 03:35 0.47 mg/dL (0.60-1.20) L 02/01/19 03:35 Glucose 106 mg/dL (70-105) H 02/01/19 03:35 Calcium 8.5 mg/dL (8.6-10.3) L 02/01/19 03:35 139 mg/L (Less than 10) H 01/29/19 15:54 Consult Discharge Plan - Plan Referrals: Jamshid Mead DO [Primary Care Provider] -
[2019-02-02] MEDS: Multivit/Ca/Min/Fe/FA 1 TAB TABLET PO SCH (08:16)
[2019-02-02] MEDS: Ascorbic Acid 500 MG TABLET PO SCH ×2 (08:16→16:21)
[2019-02-02] MEDS: Gabapentin 300 MG CAPSULE PO SCH ×3 (08:16→19:34)
--- NOTE | 2019-02-02 08:16 | Internal Med Progress Note ---
Hospitalist Progress Note - Encounter Date of Encounter: 02/02/19 Time of Encounter: 08:16 - Subjective Interval History: Patient seen and examined this morning at bedside. No acute overnight events. Patient feeling well. Pain much improved. Denies any fevers chills nausea vomiting or diarrhea. - Exam Vitals: Temp Pulse Resp BP Pulse Ox 98.0 F 90 16 133/81 93 02/02/19 02:42 02/02/19 02:42 02/02/19 07:53 02/02/19 02:42 02/02/19 07:53 Exam: Constitutional: Vitals as noted. Conversant. No Apparent Distress. Respiratory : CTAB. No accessory muscle use, rales, rhonchi or wheezes Cardiovascular : RRR, +S1, +S2. no murmur, gallop, rubs. GI/Abdominal : Soft, Non-tender, Non-distended, no peritoneal signs. Musculoskeletal: pulses palpable and symmetrical in UE/LE. No rt calf tenderness. Rt LE sensation intact. Rt hip incision with minimal redness and swelling. drain removed Neurological: AO X3, CN II-XII grossly intact, grossly normal motor and sensory exam. Skin: as above - Assessment and Plan (1) Surgical site infection Current Visit: Yes Status: Acute (2) Tenderness of right calf Current Visit: Yes Status: Acute (3) Cellulitis of right hip Current Visit: Yes Status: Acute (4) DVT prophylaxis Current Visit: No Status: Acute (5) COPD (chronic obstructive pulmonary disease) Current Visit: No Status: Chronic (6) HTN (hypertension) Current Visit: No Status: Chronic (7) Neuropathy Current Visit: No Status: Chronic (8) Anemia Current Visit: Yes Status: Acute (9) Thrombocytosis Current Visit: Yes Status: Acute - Summary of Assessment and Plan Summary of Assessment and Plan: Assessment Acute Surgical site infection thrombocytosis hypokalemia-resolved Leukocytosis anemia Chronic COPD HTN Anemia Neuropathy Plan - Came with Hip CT with large rim enhancing lesion with gas, finding suspicious of abscess. s/p surgery on 01/30 with rt revision of femur of hip hemiarthroplasty . Hemorrhagic fluid was drained. Drain removed today. - Wound growing pseudomonas. c/w zosyn. Vancomycin stopped. f/u final Blood and anaerobic cultures, NGTD. c/w pain regimen. Will consult ID tomorrow for duration of treatment given she has hip hardware. - continue to hold home antihypertensives for now. - DVT study negative. Rt knee/calf pain likely referred pain. Now improved - Not in COPD exacerbation. c/w home inhalers and albuterol - c/w home gabapentin. - Anemia, Hb stable since last discharge. leukocytosis likely reactive. Monitor for now. On antibiotics. - Thrombocytosis resolved - epcd for DVT ppx. - Plan for SNF placement Internal Medicine: Result - Labs CBC & Chem 7: 02/01/19 03:35 02/01/19 03:35 Consult Discharge Plan - Plan Referrals: Jamshid Mead DO [Primary Care Provider] - (5) COPD (chronic obstructive pulmonary disease) Qualifiers: COPD type: emphysema Emphysema type: unspecified Qualified Code(s): J43.9 - Emphysema, unspecified (6) HTN (hypertension) Qualifiers: Hypertension type: essential hypertension Qualified Code(s): I10 - Essential (primary) hypertension (8) Anemia Qualifiers: Anemia type: unspecified type Qualified Code(s): D64.9 - Anemia, unspecified
[2019-02-02] MEDS: Ondansetron 4 MG/2 ML VIAL IVP PRN (13:40)
[2019-02-02] MEDS: HYDROcodone BIT/Homatropine 5 MG TABLET PO PRN ×2 (14:35→19:34)
[2019-02-03] MEDS: Piperacillin/Tazobactam 3.375 GM in 0.9 % Sodium Chloride Mini Bag 100 ML IVPB SCH ×2 (03:07→11:54)
[2019-02-03] MEDS: HYDROcodone BIT/Homatropine 5 MG TABLET PO PRN ×2 (04:09→13:07)
[2019-02-03 04:36] LABS: Hematocrit 26.9 % (35.3-44.9); Hemoglobin 8.2 g/dL (11.5-15.4); Mean Corpuscular HGB Conc 30.5 g/dL (31.6-35.5); Mean Corpuscular Hemoglobin 29.2 pg (28.0-33.3); Mean Corpuscular Volume 95.7 fL (83.0-100.0); Mean Platelet Volume 9.6 fL (9.4-12.4); Platelet Count 372 K/mcL (140-400); Red Blood Count 2.81 M/mcL (3.82-4.97); Red Cell Distribution Width 13.5 % (11.5-14.5); White Blood Count 10.2 K/mcL (4.3-11.1)
[2019-02-03 04:56] LABS: BUN/Creatinine Ratio 15 (6-26); Blood Urea Nitrogen 7 mg/dL (8-23); Calcium 8.4 mg/dL (8.6-10.3); Carbon Dioxide 27 mEq/L (23-29); Chloride 104 mEq/L (98-107); Glucose 112 mg/dL (70-105); Osmolality,Calculated 291 (280-300); Potassium 3.1 mEq/L (3.5-5.1); Sodium 141 mEq/L (136-145); eGFR For African Americans > 60 (> 60); eGFR For Non-African Americans > 60 (> 60)
[2019-02-03] MEDS ORDERED: Potassium Chloride 20 MEQ, Lidocaine 1% 2 ML in D5% in Water 250 ML IVPB ONE (06:44)
--- NOTE | 2019-02-03 06:45 | Orthopedics Progress Note ---
Date of Encounter: 02/03/19 Time of Encounter: 06:44 Subjective Principal diagnosis: right hip infection Interval history: Patient was seen this morning doing well without complaints. Afebrile vital signs stable. Operative extremity: Neurovascularly intact Dressing clean dry and intact Calves nontender Assessment and plan: Continue with postoperative care Culture positive for Pseudomonas, plan for discharge today Objective Vital signs: Vital Signs Temp Pulse Resp BP Pulse Ox 02/03/19 03:57 99.1 F 83 19 144/78 92 02/02/19 23:46 98.9 F 89 17 144/83 92 02/02/19 20:43 16 93 02/02/19 19:52 99.5 F 89 16 129/79 93 02/02/19 19:47 93 02/02/19 16:46 98.4 F 90 14 131/79 93 02/02/19 12:14 99.0 F 85 18 118/73 93 02/02/19 07:53 16 93 Intake and Output 02/02/19 02/02/19 02/03/19 15:59 23:59 07:59 Intake Total 340 / 790 100 / 100 Output Total 45 / 565 500 / 565 Balance -45 / 225 -160 / 225 100 / 100 Intake: IV Fluids 100 / 450 100 / 100 Zosyn 3.375 GM In 0.9 % Sodium 100 / 200 100 / 100 Chloride (Mini-Bag +) 100 ML @ 25 mls/hr IVPB Q8H [facility] Rx#: [id number] Oral 240 / 340 Output: Urine 500 / 500 Wound Drainage 45 / 65 Right Hip 45 / 65 Other: Meal Dinner Percent of Meal Consumed 0% Stool Size Small Stool Consistency soft Stool Characteristics Tarry Stool Color Brown # Voids 1 1 # Bowel Movements 1 1 Weight 72 kg - Labs CBC & BMP: 02/03/19 04:15 02/03/19 04:15 Labs: Abnormal lab results WBC 11.4 K/mcL (4.3-11.1) H 02/01/19 03:35 RBC 2.81 M/mcL (3.82-4.97) L 02/03/19 04:15 Hgb 8.2 g/dL (11.5-15.4) L 02/03/19 04:15 Hct 26.9 % (35.3-44.9) L 02/03/19 04:15 MCHC 30.5 g/dL (31.6-35.5) L 02/03/19 04:15 Plt Count 441 K/mcL (140-400) H 01/31/19 07:57 10.4 K/mcL (1.6-8.9) H 01/31/19 02:14 1+ (Not Present) A 01/31/19 07:57 Potassium 3.1 mEq/L (3.5-5.1) L 02/03/19 04:15 BUN 7 mg/dL (8-23) L 02/03/19 04:15 0.47 mg/dL (0.60-1.20) L 02/03/19 04:15 Glucose 112 mg/dL (70-105) H 02/03/19 04:15 Calcium 8.4 mg/dL (8.6-10.3) L 02/03/19 04:15 139 mg/L (Less than 10) H 01/29/19 15:54 Consult Discharge Plan - Plan Referrals: Jamshid Mead DO [Primary Care Provider] -
[2019-02-03] MEDS: Budesonide/Formoterol 80/4.5 MDI IH SCH (07:47)
[2019-02-03] MEDS: Gabapentin 300 MG CAPSULE PO SCH ×2 (08:01→15:40)
[2019-02-03] MEDS: Ascorbic Acid 500 MG TABLET PO SCH (08:01)
[2019-02-03] MEDS: Acetaminophen 325 MG TABLET PO PRN (08:01)
[2019-02-03] MEDS: Multivit/Ca/Min/Fe/FA 1 TAB TABLET PO SCH (08:01)
--- NOTE | 2019-02-03 09:25 | Infectious Disease Consult ---
Infectious Disease-Consult - Encounter Date/Time Date of Encounter: 02/03/19 Time of Encounter: 10:36 - Data of Consult Patient: new to practice Reason for consult: Right hip infection Consult date: 02/03/19 Requesting Physician: Jonh Pabon MD Primary Care Provider: Jamshid Mead, - [facility] HPI: Ms. Reagan Kirk is a 73 year old female status post right hip hemiarthroplasty due to a displaced femoral neck fracture, COPD, and hypertension. The patient was admitted to the hospital 01/29/19 for right hip cellulitis. We are consulted 02/03/19 for further workup and treatment recommendations for right hip infection. Briefly, the patient is a 73-year-old female with a past medical history as stated above. The patient sustained a displaced femoral neck fracture back in December at which time she underwent a right hip hemiarthroplasty. She did well postop, but started noticing some redness at the surgical site. She was seen by orthopedics on 01/25/19 was placed on oral Bactrim. Her symptoms persisted without improvement. She was seen by orthopedics again on the day of admission and advised to go to the ER for admission. Upon arrival, she was afebrile. She was hemodynamically stable. WBC was normal. Renal function was low. CRP was elevated at 139. She does CT of the right hip that showed findings consistent with abscess. Blood cultures were obtained 2 sets. She was started empiric ally on vancomycin and Zosyn and was admitted to the hospital for further evaluation and treatment. Since admission, she has been evaluated by orthopedics. She was taken to the operating room 01/30/19 where she underwent a right revision femur of hip hemiarthroplasty. Intraoperative cultures are positive for Pseudomonas, anaerobic cultures are no growth. She did have a DVT study that was negative. She developed some diarrhea and had a GI panel performed that was negative. She did develop some postop leukocytosis which has resolved. She has had no other sepsis criteria. Currently, she is on IV Zosyn. We have asked to evaluate and make further recommendations. During my exam today, the patient endorses a history as stated above. She states she sustained a fall which prompted her initial surgery back in December. She states postop she did okay until about 10 days ago when she developed redness and pain and drainage from the surgical wound. She was evaluated by orthopedics and placed on an oral course of Bactrim. She was then evaluated on the day of admission and advised come to the ER for evaluation. She denies any fevers, chills, rigors. Denies headache or neck pain. Denies chest pain, shortness of breath, or cough. Denies nausea, vomiting, diarrhea, or constipation. Denies abdominal pain or urinary complaints. Denies oral thrush or skin rashes. Since surgery, she states the pain is improved. She does endorse 2 loose stools per day since being on antibiotics. Prior to her recent surgery, the patient was living at home with her and daughter. She is retired. She denies tobacco, alcohol, illicit drug use. Denies chronic infectious diseases. Denies any pet or animal exposures. Denies recent travel. - ROS Review of Systems: All systems reviewed and no additional remarkable complaints except as stated. - Results CBC & Chem 7: 02/03/19 04:15 02/03/19 04:15 - Exam Vitals: Temp Pulse Resp BP Pulse Ox 98.8 F 81 16 133/80 90 02/03/19 07:26 02/03/19 07:26 02/03/19 07:47 02/03/19 07:26 02/03/19 07:47 Exam: Head: Atraumatic, normal inspection, normocephalic. Eye: EOMI, PERRLA, no scleral icterus noted. ENT: Mucous membranes moist. No odontogenic infection noted. Neck: Normal inspection, no meningismus. Respiratory: Clear to auscultation. No rales, respiratory distress, rhonchi, or wheezes noted. Cardiovascular: Regular rate and rhythm, S1 and S2 audible. No murmurs, rubs, or gallops. GI: Soft, nondistended, normal bowel sounds. Extremities:No joint swelling, pedal edema, or tenderness noted. Right hip surgical site dressing clean, dry, and intact. Surgery site with the PICC line dressing noted. Small amount of bloody drainage noted on the dressing. Erythe ma receded from previous skin markings. Mild tenderness noted. No warmth on palpation. Back: Normal inspection. No vertebral tenderness noted. Neurological: Alert, oriented 3, no focal deficits. Psychiatric: normal affect, normal mood. Skin: Dry, intact, warm. Normal color. No rashes. Albuterol Neb [Proventil Neb] 3 ml IH Q4H PRN 01/14/19 [History] Albuterol Sulfate [Ventolin Hfa] 2 puff PO Q4H PRN 01/14/19 [History] Budesonide/Formoterol 80/4.5 [Symbicort 80/4.5] 1 puff PO BID 01/14/19 [History] Calcium Carbonate/Vitamin D3 [Calcium 600-Vit D3 400 Tablet] 1 tab PO BID 01/14/19 [History] Furosemide [Lasix] 20 mg PO DAILY 01/14/19 [History] Gabapentin [Neurontin] 300 mg PO TID 01/14/19 [History] Losartan Potassium [Cozaar] 100 mg PO DAILY 01/14/19 [History] Omeprazole [PriLOSEC] 40 mg PO DAILY 01/14/19 [History] Ondansetron HCl [Zofran] 4 mg PO Q8H PRN 01/14/19 [History] PARoxetine HCl [Paroxetine HCl] 40 mg PO DAILY 01/14/19 [History] Ranitidine HCl [Heartburn Relief] 150 mg PO BID 01/14/19 [History] Umeclidinium [place] [Incruse Ellipta] 1 puff PO DAILY 01/14/19 [History] hydrOXYzine HCl [Hydroxyzine HCl] 25 mg PO Q6H PRN 01/14/19 [History] Acetaminophen [Tylenol] 650 mg PO Q6HR PRN tablet 01/15/19 [Rx] Aspirin Enteric Coated [Aspirin EC] 325 mg PO DAILY tablet. 01/15/19 [Rx] Docusate [Colace] 100 mg PO BID capsule 01/15/19 [Rx] Cefepime HCl/Dextrose, Iso-Osm [Cefepime 2 gm Injection] 2 gm IV Q12H 42 Days #84 mls 02/03/19 [Rx] Ferrous Sulfate 325 mg PO BIDWM tablet 02/03/19 [Rx] Oxycodone HCl [Roxybond] 5 mg PO Q8H PRN 3 Days #6 tablet.orl 02/03/19 [Rx] metroNIDAZOLE [Metronidazole] 500 mg PO TID 42 Days #126 tablet 02/03/19 [Rx] Allergy/AdvReac Type Severity Reaction Status Date / Time No Known Allergies Allergy Verified 01/14/19 18:03 - Assessment and Plan (1) Leukocytosis Status: Resolved Likely reactive secondary to surgery. Resolved. SNOMED Code(s): 898700824, 730678326 (2) Abscess of right hip Status: Acute Location: Right hip. Likely secondary to recent surgery. Cause of organism: Pseudomonas aeruginosa. CT of the right hip showed a large rim-enhancing fluid collection containing gas and her deep to the surgical staple line measuring 3.8 x 5.4 x 22 cm. This extends through the surgical wound of the adjacent fashion with fluid also present within the trochanteric bursa, findings highly suspicious for abscess. Orthopedics consulted. Status post right revision femur of hip hemiarthroplasty 01/30/19. Operative note reviewed. Intraoperative cultures as above. Anaerobic cultures are no growth. Currently on Zosyn. SNOMED Code(s): 496328 (3) Cellulitis of right hip Status: Acute Location: Right hip. Causative organism: Pseudomonas aeruginosa. Likely secondary to right hip abscess and surgical site infection. Improved per patient report. Receded from previous skin markings. Currently on Zosyn. SNOMED Code(s): 37562088709470214 (4) Tenderness of right calf Status: Acute Likely referred pain from right hip infection. DVT study negative. Improved per patient report. Management per the primary team. SNOMED Code(s): 394070132, 150051349 (5) Anemia Status: Acute Qualifiers: Anemia type: unspecified type Qualified Code(s): D64.9 - Anemia, unspecified SNOMED Code(s): 579649938 (6) History of hemiarthroplasty of right hip Status: Acute Status post right hip hemiarthroplasty December 2018. SNOMED Code(s): 296237782 (7) HTN (hypertension) Status: Chronic Qualifiers: Hypertension type: essential hypertension Qualified Code(s): I10 - Essential (primary) hypertension SNOMED Code(s): 22613100 (8) Neuropathy Status: Chronic SNOMED Code(s): 111346116 - Recommendations Recommendations: Await intraoperative anaerobic cultures are finalized. Wound care and activity restrictions per the orthopedics team. Discontinue Zosyn. Start cefepime 2 g IV every 12 hours. Start Flagyl 500 mg by mouth 3 times a day. Duration of treatment of his on the clinical picture, but likely a total of 6 weeks. protective services officer to assist with discharge planning. Monitor renal function and dose adjust antibiotics. We will need weekly CBC, BUN/creatinine, ESR, CRP. Will need weekly IV care per protocol. Follow up with ID 02/18/19 at 1420. Past Med Surg Social Fam HX - Past Medical History Medical history: COPD, hypertension Additional medical history: back pain Psychiatric history: no psych history - Past Surgical History Surgical History: cholecystectomy, hysterectomy Additional surgical history: right hip surgery - Social History Smoking Status: Former smoker Smokeless Tobacco Status: No Alcohol use: none Drug use: none - Family History Father Family Member Ethnicity: Non- Living Status: Mother Family Member Ethnicity: Non- Brother Family Member Ethnicity: Non- Living Status: Still Living Sister Family Member Ethnicity: Non- Living Status: Still Living Hx Family Neurologic Disorders: Yes (Neuropathy in LEs) Consult Discharge Plan - Plan Referrals: Jamshid Mead DO [Primary Care Provider] - Shelly Virgen [employer] [Advanced Practice Nurse] - 02/18/19 2:20 pm Prescriptions: Cefepime HCl/Dextrose, Iso-Osm [Cefepime 2 gm Injection] 2 gm IV Q12H 42 Days #84 mls metroNIDAZOLE [Metronidazole] 500 mg PO TID 42 Days #126 tablet Oxycodone HCl [Roxybond] 5 mg PO Q8H PRN 3 Days #6 tablet.orl PRN Reason: Pain - Attending Attestation I have personally performed a face to face evaluation on this patient. I have reviewed and agree with the care plan. History and Exam by me shows: Assessment and plan: 1.Right hip abscess. 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 Intra-Op cultures positive for pseudomonas aeruginosa pansensitive with the exception of fluoroquinolone resistance Recommendations Await intraoperative anaerobic cultures are finalized. Wound care and activity restrictions per the orthopedics team. Discontinue Zosyn. Start cefepime 2 g IV every 12 hours. Start Flagyl 500 mg by mouth 3 times a day. Duration of treatment of his on the clinical picture, but likely a total of 6 weeks. protective services officer to assist with discharge planning. Monitor renal function and dose adjust antibiotics. We will need weekly CBC, BUN/creatinine, ESR, CRP. Will need weekly IV care per protocol. Follow up with ID 02/18/19 at 1420.
[2019-02-03] MEDS: *HR* OxyCODONE Oral Soln 5 MG/5 ML UD.LIQ PO PRN ×2 (09:52→15:40)
--- NOTE | 2019-02-03 10:23 | Event Note ---
Date of Encounter: 02/03/19
[2019-02-03 11:30] VITALS: BP 126/77
[2019-02-03] MEDS: Ondansetron 4 MG/2 ML VIAL IVP PRN (13:10)
--- NOTE | 2019-02-03 13:21 | Discharge Summary ---
- NOTES TO OUTPATIENT PROVIDER Notes to Outpatient Provider: Patient will need to follow up with infectious disease and orthopedics as outpatient. Patient to finish 6 weeks of antibiotics IV and oral antibiotics and get weekly blood work done. Orders not resulted at time of discharge: Pending orders 01/29/19 15:52 Culture,Blood [BC] Stat 01/30/19 17:23 Culture,Anaerobic [RM] Stat 01/30/19 17:56 Surgical Pathology [PTH] Routine 02/04/19 04:00 BMP [Basic Metabolic Panel] AM 0400 CBC no Diff [Complete Blood Count w/o Diff] [HEME] AM 0400 Date of Encounter: 02/03/19 Time of Encounter: 13:21 - Discharge Diagnosis (1) Surgical site infection Priority: Primary Status: Acute (2) Tenderness of right calf Priority: Secondary Status: Acute (3) Cellulitis of right hip Priority: Primary Status: Acute (4) DVT prophylaxis Priority: Secondary Status: Acute (5) COPD (chronic obstructive pulmonary disease) Priority: Secondary Status: Chronic Qualifiers: COPD type: emphysema Emphysema type: unspecified Qualified Code(s): J43.9 - Emphysema, unspecified (6) HTN (hypertension) Priority: Secondary Status: Chronic Qualifiers: Hypertension type: essential hypertension Qualified Code(s): I10 - Essential (primary) hypertension (7) Neuropathy Priority: Secondary Status: Chronic (8) Anemia Priority: Secondary Status: Acute Qualifiers: Anemia type: unspecified type Qualified Code(s): D64.9 - Anemia, unspecified (9) Thrombocytosis Priority: Secondary Status: Acute Hospital course: Ms. Kirk is a 73 year old female with past medical history of COPD, hypertension, neuropathy came in from half-way advised by orthopedist was found to have extensive cellulitis and abscess on the incision of recent right hemiarthroplasty. Patient was started on empiric antibiotics with vancomycin and Zosyn. Patient also had some tenderness in right calf with DVT study being negative. Patient had CT right lower eczema be showed large fluid collection containing gas suspicion of access. Patient had surgery on 01/30/19 with right revision femur of hip hemiarthroplasty with drainage of hemorrhagic fluid and placement of drain. Cultures were collected. Patient improved significantly af ter. Patient wound culture grew pseudomonas. Patient's vancomycin was stopped and infectious disease consult was obtained. Infectious diseases recommended cefepime IV and Flagyl for 6 weeks with weekly blood work. Patient is otherwise stable to be discharged once arrangement of IV antibiotics and rehabilitation's obtained by social media community manager. Discharge discussed with: patient, nurse, social work, consultant in ergonomics and safety - Time Spent with Patient Total time spent providing and/or coordinating discharge services: Time spent: Greater than 30 minutes (40) - Discharge Medications Prescriptions: New Cefepime HCl/Dextrose, Iso-Osm [Cefepime 2 gm Injection] 2 gm IV Q12H 42 Days #84 mls metroNIDAZOLE [Metronidazole] 500 mg PO TID 42 Days #126 tablet Ferrous Sulfate 325 mg PO BIDWM tablet Continued Albuterol Neb [Proventil Neb] 3 ml IH Q4H PRN PRN Reason: Shortness Of Breath Albuterol Sulfate [Ventolin Hfa] 2 puff PO Q4H PRN PRN Reason: Shortness Of Breath Budesonide/Formoterol 80/4.5 [Symbicort 80/4.5] 1 puff PO BID Calcium Carbonate/Vitamin D3 [Calcium 600-Vit D3 400 Tablet] 1 tab PO BID Furosemide [Lasix] 20 mg PO DAILY Gabapentin [Neurontin] 300 mg PO TID hydrOXYzine HCl [Hydroxyzine HCl] 25 mg PO Q6H PRN PRN Reason: Itching Losartan Potassium [Cozaar] 100 mg PO DAILY Omeprazole [PriLOSEC] 40 mg PO DAILY Ondansetron HCl [Zofran] 4 mg PO Q8H PRN PRN Reason: NAUSEA/VOMITING PARoxetine HCl [Paroxetine HCl] 40 mg PO DAILY Ranitidine HCl [Heartburn Relief] 150 mg PO BID Umeclidinium [place] [Incruse Ellipta] 1 puff PO DAILY Aspirin Enteric Coated [Aspirin EC] 325 mg PO DAILY tablet. Acetaminophen [Tylenol] 650 mg PO Q6HR PRN tablet PRN Reason: Mild Pain/Fever Docusate [Colace] 100 mg PO BID capsule Changed Oxycodone HCl [Roxybond] 5 mg PO Q8H PRN 3 Days #6 tablet.orl PRN Reason: Pain Discontinued Sulfamethoxazole/Trimeth DS [Bactrim DS] 1 tab PO BID Home Medications: Albuterol Neb [Proventil Neb] 3 ml IH Q4H PRN 01/14/19 [History] Albuterol Sulfate [Ventolin Hfa] 2 puff PO Q4H PRN 01/14/19 [History] Budesonide/Formoterol 80/4.5 [Symbicort 80/4.5] 1 puff PO BID 01/14/19 [History] Calcium Carbonate/Vitamin D3 [Calcium 600-Vit D3 400 Tablet] 1 tab PO BID 01/14/19 [History] Furosemide [Lasix] 20 mg PO DAILY 01/14/19 [History] Gabapentin [Neurontin] 300 mg PO TID 01/14/19 [History] Losartan Potassium [Cozaar] 100 mg PO DAILY 01/14/19 [History] Omeprazole [PriLOSEC] 40 mg PO DAILY 01/14/19 [History] Ondansetron HCl [Zofran] 4 mg PO Q8H PRN 01/14/19 [History] PARoxetine HCl [Paroxetine HCl] 40 mg PO DAILY 01/14/19 [History] Ranitidine HCl [Heartburn Relief] 150 mg PO BID 01/14/19 [History] Umeclidinium [place] [Incruse Ellipta] 1 puff PO DAILY 01/14/19 [History] hydrOXYzine HCl [Hydroxyzine HCl] 25 mg PO Q6H PRN 01/14/19 [History] Acetaminophen [Tylenol] 650 mg PO Q6HR PRN tablet 01/15/19 [Rx] Aspirin Enteric Coated [Aspirin EC] 325 mg PO DAILY tablet. 01/15/19 [Rx] Docusate [Colace] 100 mg PO BID capsule 01/15/19 [Rx] Cefepime HCl/Dextrose, Iso-Osm [Cefepime 2 gm Injection] 2 gm IV Q12H 42 Days #84 mls 02/03/19 [Rx] Ferrous Sulfate 325 mg PO BIDWM tablet 02/03/19 [Rx] Oxycodone HCl [Roxybond] 5 mg PO Q8H PRN 3 Days #6 tablet.orl 02/03/19 [Rx] metroNIDAZOLE [Metronidazole] 500 mg PO TID 42 Days #126 tablet 02/03/19 [Rx] Allergies/Adverse Reactions: Allergy/AdvReac Type Severity Reaction Status Date / Time No Known Allergies Allergy Verified 01/14/19 18:03 Date of admission: 01/29/19 20:24 Primary care physician: Jamshid Mead DO Consults: 01/31/19 07:15 Consult to Nurse Navigator [CONS] Routine Comment: ortho navigator Consult to Nutrition [CONS] Routine Comment: Consulting Provider: NUTRITION Reason for Dietary Consult: Other Other:: Proper nutrition to facilitate wound healing Consult to Occupational Therapy [CONS] Routine Comment: Evaluate, develop and implement POC Reason for Consult: total hip replacement Does patient have active BEDREST order?: No Is patient medically & hemodynamically stable?: Yes Consult to Physical Therapy [CONS] Routine Comment: Evaluate, develop and implement POC Reason for Consult: total hip replacement Does patient have active BEDREST order?: No Is patient medically & hemodynamically stable?: Yes Consult to Senior [employer] Net Developer [CONS] Routine Reason for SW Consult: post op joint replacement RT Post Op Consult [CONS] Routine 01/31/19 11:40 Consult to Invasive Line Access Team [CONS] Routine Reason for Consult: Picc Line Insertion Line Type: PICC 02/02/19 08:16 Consult to Infectious Diseases [CONS] Routine Consulting Provider: Infectious Disease [employer] Reason for Consult: Psuedomonas skin infection, Has Hip hardware replacement Call Completed: No Discharging clinician: Jonh Pabon - Constitutional Vitals: Temp Pulse Resp BP Pulse Ox 98.5 F 77 16 126/77 94 02/03/19 11:28 02/03/19 11:28 02/03/19 11:28 02/03/19 11:28 02/03/19 11:28 Exam: Constitutional: Vitals as noted. Conversant. No Apparent Distress. Respiratory : CTAB. No accessory muscle use, rales, rhonchi or wheezes Cardiovascular : RRR, +S1, +S2. no murmur, gallop, rubs. GI/Abdominal : Soft, Non-tender, Non-distended, no peritoneal signs. Musculoskeletal: pulses palpable and symmetrical in UE/LE. No rt calf tenderness. Rt LE sensation intact. Rt hip incision with minimal redness and swelling. drain removed Neurological: AO X3, CN II-XII grossly intact, grossly normal motor and sensory exam. Skin: as above - Patient Status Disposition: Transfer SNF Condition: Fair - Ambulatory Orders Ambulatory Orders: Creatinine [CHEM] Time Frame: 1 Week, Facility: [facility], Location: Lab Blood Urea Nitrogen (BUN) [CHEM] Time Frame: 7 Days, Facility: [facility], Location: Lab Blood Urea Nitrogen (BUN) [CHEM] Time Frame: 02/10/19, Facility: [facility], Location: Lab Blood Urea Nitrogen (BUN) [CHEM] Time Frame: 02/17/19, Facility: [facility], Location: Lab Blood Urea Nitrogen (BUN) [CHEM] Time Frame: 02/24/19, Facility: [facility], Location: Lab Blood Urea Nitrogen (BUN) [CHEM] Time Frame: 03/03/19, Facility: [facility], Location: Lab Blood Urea Nitrogen (BUN) [CHEM] Time Frame: 03/10/19, Facility: [facility], Location: Lab Blood Urea Nitrogen (BUN) [CHEM] Time Frame: 03/17/19, Facility: [facility], Location: Lab C-Reactive Protein [CHEM] Time Frame: 7 Days, Facility: [facility], Location: Lab C-Reactive Protein [CHEM] Time Frame: 02/10/19, Facility: [facility], Location: Lab C-Reactive Protein [CHEM] Time Frame: 02/17/19, Facility: [facility], Location: Lab C-Reactive Protein [CHEM] Time Frame: 02/24/19, Facility: [facility], Location: Lab C-Reactive Protein [CHEM] Time Frame: 03/03/19, Facility: [facility], Location: Lab C-Reactive Protein [CHEM] Time Frame: 03/10/19, Facility: [facility], Location: Lab C-Reactive Protein [CHEM] Time Frame: 03/17/19, Facility: [facility], Location: Lab Complete Blood Count [HEME] Time Frame: 1 Week, Facility: [facility], Location: Lab Complete Blood Count [HEME] Time Frame: 02/10/19, Facility: [facility], Location: Lab Complete Blood Count [HEME] Time Frame: 02/17/19, Facility: [facility], Location: Lab Complete Blood Count [HEME] Time Frame: 02/24/19, Facility: [facility], Location: Lab Complete Blood Count [HEME] Time Frame: 03/03/19, Facility: [facility], Location: Lab Complete Blood Count [HEME] Time Frame: 03/10/19, Facility: [facility], Location: Lab Complete Blood Count [HEME] Time Frame: 03/17/19, Facility: [facility], Location: Lab Erythrocyte Sedimentation Rate [HEME] Time Frame: 7 Days, Facility: [facility], Location: Lab Erythrocyte Sedimentation Rate [HEME] Time Frame: 02/10/19, Facility: [facility], Location: Lab Erythrocyte Sedimentation Rate [HEME] Time Frame: 02/17/19, Facility: [facility], Location: Lab Erythrocyte Sedimentation Rate [HEME] Time Frame: 02/24/19, Facility: [facility], Location: Lab Erythrocyte Sedimentation Rate [HEME] Time Frame: 03/03/19, Facility: [facility], Location: Lab Erythrocyte Sedimentation Rate [HEME] Time Frame: 03/10/19, Facility: [facility], Location: Lab Erythrocyte Sedimentation Rate [HEME] Time Frame: 03/17/19, Facility: [facility], Location: Lab - Discharge Instructions Follow Up With: Shelly Virgen CNP [Advanced Practice Nurse] - 02/18/19 2:20 pm Jamshid Mead DO [Primary Care Provider] - Forms: ED Satisfaction Letter - Diet and Activity Activity: as per physical therapy
[2019-02-03] MEDS ORDERED: Cefepime HCl 2,000 MG in Water for inj. (sterile) 20 ML 20 ML IVP SCH (14:00)
[2019-02-03] MEDS ORDERED: metroNIDAZOLE 500 MG TABLET PO SCH (15:00)
--- NOTE | 2019-02-03 15:15 | Physician Discharge Referral ---
ExtendedCare Referral Info Institutional Level of Care: Skilled - Diagnosis (1) Surgical site infection Status: Acute (2) Tenderness of right calf Status: Acute (3) Cellulitis of right hip Status: Acute (4) DVT prophylaxis Status: Acute (5) COPD (chronic obstructive pulmonary disease) Status: Chronic (6) HTN (hypertension) Status: Chronic (7) Neuropathy Status: Chronic (8) Anemia Status: Acute (9) Thrombocytosis Status: Acute - Transfer Medications Prescriptions: Cefepime HCl/Dextrose, Iso-Osm [Cefepime 2 gm Injection] 2 gm IV Q12H 42 Days #84 mls metroNIDAZOLE [Metronidazole] 500 mg PO TID 42 Days #126 tablet Oxycodone HCl [Roxybond] 5 mg PO Q8H PRN 3 Days #6 tablet.orl PRN Reason: Pain Home Medications: Albuterol Neb [Proventil Neb] 3 ml IH Q4H PRN 01/14/19 [History] Albuterol Sulfate [Ventolin Hfa] 2 puff PO Q4H PRN 01/14/19 [History] Budesonide/Formoterol 80/4.5 [Symbicort 80/4.5] 1 puff PO BID 01/14/19 [History] Calcium Carbonate/Vitamin D3 [Calcium 600-Vit D3 400 Tablet] 1 tab PO BID 01/14/19 [History] Furosemide [Lasix] 20 mg PO DAILY 01/14/19 [History] Gabapentin [Neurontin] 300 mg PO TID 01/14/19 [History] Losartan Potassium [Cozaar] 100 mg PO DAILY 01/14/19 [History] Omeprazole [PriLOSEC] 40 mg PO DAILY 01/14/19 [History] Ondansetron HCl [Zofran] 4 mg PO Q8H PRN 01/14/19 [History] PARoxetine HCl [Paroxetine HCl] 40 mg PO DAILY 01/14/19 [History] Ranitidine HCl [Heartburn Relief] 150 mg PO BID 01/14/19 [History] Umeclidinium [place] [Incruse Ellipta] 1 puff PO DAILY 01/14/19 [History] hydrOXYzine HCl [Hydroxyzine HCl] 25 mg PO Q6H PRN 01/14/19 [History] Acetaminophen [Tylenol] 650 mg PO Q6HR PRN tablet 01/15/19 [Rx] Aspirin Enteric Coated [Aspirin EC] 325 mg PO DAILY tablet. 01/15/19 [Rx] Docusate [Colace] 100 mg PO BID capsule 01/15/19 [Rx] Cefepime HCl/Dextrose, Iso-Osm [Cefepime 2 gm Injection] 2 gm IV Q12H 42 Days #84 mls 02/03/19 [Rx] Ferrous Sulfate 325 mg PO BIDWM tablet 02/03/19 [Rx] Oxycodone HCl [Roxybond] 5 mg PO Q8H PRN 3 Days #6 tablet.orl 02/03/19 [Rx] metroNIDAZOLE [Metronidazole] 500 mg PO TID 42 Days #126 tablet 02/03/19 [Rx] Allergies/Adverse Reactions: Allergy/AdvReac Type Severity Reaction Status Date / Time No Known Allergies Allergy Verified 01/14/19 18:03 - Respiratory Orders Smoking Cessation: Smoking cessation has been advised. For more information, call the [place] Tobacco Quit Line at 9-014-DBPG-NOW. CERTIFICATION: I certify that the transfer of the above named patient to an Extended Care Facility is necessary for the continuing treatment of the diagnosis listed. The above information is true and accurate reflection of patient's current condition. Confidential - Redisclosure prohibited without a patient's written consent.
== END 2019-02-03 15:58 | DRG 857 ==
LOC: EMEROOARM 15:27 → SUATTDRO 20:24 → 3NENU 20:24
PROVIDERS: ADMIT Internal Medicine Nephrology; ATTEND Internal Medicine

== ENCOUNTER 2019-02-24 09:17 | Inpatient (IN) ==
[2019-02-24] MEDS ORDERED: Naloxone 0.4 MG/ML INJ IVP PRN (11:32)
[2019-02-24] MEDS ORDERED: Ondansetron 4 MG/2 ML VIAL IVP PRN (11:32)
[2019-02-24] MEDS ORDERED: Acetaminophen 325 MG TABLET PO PRN (11:35)
[2019-02-24] MEDS ORDERED: Ipratropium/Albuterol Neb 3 ML IH PRN (11:36)
--- NOTE | 2019-02-24 11:55 | Internal Med History&Physical ---
Date of Encounter: 02/24/19 Time of Encounter: 11:15 Internal Medicine - H&P: HPI Chief complaint: fever, confusion, diarrhea Admitted From: Emergency Dept History of present illness: Ms. 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 For the last 2-3 days, the staff at her ECF noted that her PICC site appeared more erythematous and started draining some fluid underneath the dressing. Pt then developed transient AMS and fever this morning hence was sent to the ED for further evaluation. Otherwise did not have any systemic symptoms such as fever/chills, N/V, or pain over the PICC line site. However, the RN noted that she had profuse diarrhea upon arrival to the floor. No chest pain, shortness of breath, cough, sputum production, abdominal pain, change in bowel habits, or dysuria. No joint pain or rash. She was seen at the outside hospital ED when she was noted to be febrile 100.9, tachycardic at 104, and tachypneic at 21. BP 105/81. Labwork showed leukocytosis of 16.4, normal lactic acid, and AST/ALT of 278/209 respectively. Patient had line removed and the tip was sent for culture. She was given a dose of IV vancomycin and transferred for further management. Past Med Surg Social Fam HX - Past Medical History Medical history: COPD, hypertension Additional medical history: back pain Psychiatric history: no psych history - Past Surgical History Surgical History: cholecystectomy, hysterectomy Additional surgical history: right hip surgery followed by revision due to prosthetic joint infection - Social History Smoking Status: Former smoker Smokeless Tobacco Status: No Alcohol use: none Drug use: none - Family History Father Family Member Ethnicity: Non- Living Status: Mother Family Member Ethnicity: Non- Brother Family Member Ethnicity: Non- Living Status: Still Living Sister Family Member Ethnicity: Non- Living Status: Still Living Hx Family Neurologic Disorders: Yes (Neuropathy in LEs) Internal Medicine - H&P: Meds Albuterol Neb [Proventil Neb] 3 ml IH Q4H PRN 01/14/19 [History] Albuterol Sulfate [Ventolin Hfa] 2 puff PO Q4H PRN 01/14/19 [History] Budesonide/Formoterol 80/4.5 [Symbicort 80/4.5] 1 puff PO BID 01/14/19 [History] Calcium Carbonate/Vitamin D3 [Calcium 600-Vit D3 400 Tablet] 1 tab PO BID 01/14/19 [History] Furosemide [Lasix] 20 mg PO DAILY 01/14/19 [History] Gabapentin [Neurontin] 300 mg PO TID 01/14/19 [History] Losartan Potassium [Cozaar] 100 mg PO DAILY 01/14/19 [History] Omeprazole [PriLOSEC] 40 mg PO DAILY 01/14/19 [History] Ondansetron HCl [Zofran] 4 mg PO Q8H PRN 01/14/19 [History] PARoxetine HCl [Paroxetine HCl] 40 mg PO DAILY 01/14/19 [History] Ranitidine HCl [Heartburn Relief] 150 mg PO BID 01/14/19 [History] Umeclidinium [place] [Incruse Ellipta] 1 puff PO DAILY 01/14/19 [History] hydrOXYzine HCl [Hydroxyzine HCl] 25 mg PO Q6H PRN 01/14/19 [History] Acetaminophen [Tylenol] 650 mg PO Q6HR PRN tablet 01/15/19 [Rx] Aspirin Enteric Coated [Aspirin EC] 325 mg PO DAILY tablet. 01/15/19 [Rx] Docusate [Colace] 100 mg PO BID capsule 01/15/19 [Rx] Cefepime HCl/Dextrose, Iso-Osm [Cefepime 2 gm Injection] 2 gm IV Q12H 42 Days #84 mls 02/03/19 [Rx] Ferrous Sulfate 325 mg PO BIDWM tablet 02/03/19 [Rx] metroNIDAZOLE [Metronidazole] 500 mg PO TID 42 Days #126 tablet 02/03/19 [Rx] Allergy/AdvReac Type Severity Reaction Status Date / Time No Known Allergies Allergy Verified 01/14/19 18:03 All Systems PM: A 10-system review of systems was performed and is negative for pertinent findings except as documented above in the HPI. - Constitutional Vitals: Temp Pulse Resp BP Pulse Ox 100.6 F H 106 19 131/70 91 02/24/19 11:23 02/24/19 11:23 02/24/19 11:23 02/24/19 11:23 02/24/19 11:23 Exam: General: Alert and oriented x 3, not in acute distress. HEENT:EOMI, pupils equal, round and reactive. Cardiovascular:Normal S1 & S2, No JVD. Pulse regular but tachycardic Lungs: clear to auscultation, no wheezes/rales Abdomen:Soft, non-tender, no rigidity. Extremities: R UE PICC site with mild erythema and minimal amount of yellowish drainage on dressing. Unable to express further drainage. No obvious fluctuance or localized fluid collection palpated. R hip incision site appears dry, no discharges Neurological:Normal cognition and motor skills. Non-focal Skin: warm and dry Pulses:Carotid and radial pulses normal +2. Rest of the physical exam is non contributory Internal Med - H&P Results - Labs CBC & Chem 7: 02/24/19 11:52 - Assessment and Plan (1) Sepsis Current Visit: Yes Status: Acute Assessment and plan: Presented to the [facility] ED with tachycardia, tachypnea, leukocytosis, and fever Source was thought to be PICC line infection as she had redness and drainage around the insertion point. It was removed and the tip was sent for culture although pt does have mild erythema and minimal amount of discharge, the changes appear to be mild at best pt was noted to have diarrhea upon the transfer ?C. diff. She had been on chronic abx for prosthetic joint infection R hip incision appears to be unremarkable lactic acid normal check GI panel continue IV Vanc/cefepime while waiting for blood and PICC line tip culture. Will also send another set of blood cultures here Qualifiers: Sepsis type: sepsis due to unspecified organism Qualified Code(s): A41.9 - Sepsis, unspecified organism (2) PICC line infection Current Visit: Yes Status: Acute Assessment and plan: as above Qualifiers: Encounter type: initial encounter Qualified Code(s): T80.219A - Unspecified infection due to central venous catheter, initial encounter (3) Diarrhea Current Visit: Yes Status: Acute Assessment and plan: sending stool for GI panel Qualifiers: Diarrhea type: unspecified type Qualified Code(s): R19.7 - Diarrhea, unspecified (4) History of hemiarthroplasty of right hip Current Visit: No Status: Acute Assessment and plan: Complicated by prosthetic joint infection requiring recent revision on 01/30 does not appear to have any wound infection on IV cefepime/flagyl for 6 weeks, will continue (5) COPD (chronic obstructive pulmonary disease) Current Visit: No Status: Chronic Assessment and plan: not in exacerbation, when necessary DuoNeb Resume home inhalers once reconciled Qualifiers: COPD type: emphysema Emphysema type: unspecified Qualified Code(s): J43.9 - Emphysema, unspecified (6) HTN (hypertension) Current Visit: No Status: Chronic Assessment and plan: holding meds in view of borderline BP Qualifiers: Hypertension type: essential hypertension Qualified Code(s): I10 - Essential (primary) hypertension (7) DVT prophylaxis Current Visit: No Status: Acute Assessment and plan: Subcutaneous heparin - Time Spent With Patient Total time spent is greater than 50% in coordination of care (as documented) at patient's floor/unit and/or counseling patient: Greater than 35 minutes
[2019-02-24 12:13] LABS: Hematocrit 30.6 % (35.3-44.9); Hemoglobin 9.1 g/dL (11.5-15.4); Mean Corpuscular HGB Conc 29.7 g/dL (31.6-35.5); Mean Corpuscular Hemoglobin 28.6 pg (28.0-33.3); Mean Corpuscular Volume 96.2 fL (83.0-100.0); Platelet Count 308 K/mcL (140-400); Red Blood Count 3.18 M/mcL (3.82-4.97); Red Cell Distribution Width 14.1 % (11.5-14.5); White Blood Count 17.1 K/mcL (4.3-11.1)
[2019-02-24 13:10] LABS: Potassium 2.9 mEq/L (3.5-5.1); Sodium 140 mEq/L (136-145)
[2019-02-24 13:11] LABS: Alanine Aminotransferase 145 Units/L (7-52); Albumin/Globulin Ratio 0.9 (1.1-2.2); Alkaline Phosphatase 263 Units/L (34-104); Aspartate Amino Transferase 141 Units/L (13-39); BUN/Creatinine Ratio 12 (6-26); Bilirubin,Total 0.4 mg/dL (0.3-1.0); Blood Urea Nitrogen 7 mg/dL (8-23); Calcium 7.9 mg/dL (8.6-10.3); Carbon Dioxide 29 mEq/L (23-29); Chloride 101 mEq/L (98-107); Globulin 3.2 g/dL (2.4-3.5); Glucose 108 mg/dL (70-105); Magnesium 1.6 mg/dL (1.6-2.6); Osmolality,Calculated 289 (280-300); Total Protein 6.2 g/dL (6.4-8.9); eGFR For African Americans > 60 (> 60); eGFR For Non-African Americans > 60 (> 60)
[2019-02-24] MEDS: Ringers Solution, Lactated 1,000 ML IVC SCH (13:20)
[2019-02-24 14:08] LABS: Lymphocytes # 1.7 K/mcL (0.6-4.6); Monocytes # 0.3 K/mcL (0.0-1.3); Neutrophils # 15.1 K/mcL (1.6-8.9); Platelet Estimate Normal (Normal)
[2019-02-24] MEDS: metroNIDAZOLE 500 MG TABLET PO SCH ×2 (15:30→22:12)
[2019-02-24] MEDS: Cefepime HCl 2,000 MG in Water for inj. (sterile) 20 ML IVP SCH (15:30)
[2019-02-24] MEDS: Potassium Chloride Elixir 20 MEQ/15 ML UDC PO SCH ×2 (15:30→22:13)
[2019-02-24] MEDS: *HR* HYDROcodone/Acet 5/325 mg TABLET PO PRN (15:58)
[2019-02-24] MEDS: *HR* Heparin 5,000 UNIT/ML VIAL SQ SCH (17:38)
[2019-02-24] MEDS ORDERED: Cefepime HCl 2,000 MG in Water for inj. (sterile) 20 ML IVP SCH (18:00)
[2019-02-25] MEDS: Ringers Solution, Lactated 1,000 ML IVC SCH (02:27)
[2019-02-25] MEDS: *HR* Heparin 5,000 UNIT/ML VIAL SQ SCH ×2 (06:06→17:50)
[2019-02-25] MEDS: Cefepime HCl 2,000 MG in Water for inj. (sterile) 20 ML IVP SCH ×2 (06:06→17:50)
[2019-02-25 07:27] LABS: Hemoglobin 9.6 g/dL (11.5-15.4); Mean Corpuscular Hemoglobin 28.7 pg (28.0-33.3); Mean Corpuscular Volume 95.8 fL (83.0-100.0); Mean Platelet Volume 10.1 fL (9.4-12.4); Platelet Count 315 K/mcL (140-400); Red Blood Count 3.34 M/mcL (3.82-4.97); Red Cell Distribution Width 14.3 % (11.5-14.5); White Blood Count 19.6 K/mcL (4.3-11.1)
[2019-02-25 07:50] LABS: BUN/Creatinine Ratio 15 (6-26); Blood Urea Nitrogen 7 mg/dL (8-23); Calcium 8.1 mg/dL (8.6-10.3); Carbon Dioxide 30 mEq/L (23-29); Chloride 103 mEq/L (98-107); Glucose 114 mg/dL (70-105); Magnesium 1.7 mg/dL (1.6-2.6); Osmolality,Calculated 291 (280-300); Potassium 3.2 mEq/L (3.5-5.1); Sodium 141 mEq/L (136-145); eGFR For African Americans > 60 (> 60); eGFR For Non-African Americans > 60 (> 60)
[2019-02-25 08:26] LABS: Lymphocytes # 0.4 K/mcL (0.6-4.6); Neutrophils # 19.2 K/mcL (1.6-8.9); Toxic Granulation Present (Not Present)
[2019-02-25 08:27] LABS: Platelet Estimate Normal (Normal); Polychromasia 1+ (Not Present)
[2019-02-25] MEDS: metroNIDAZOLE 500 MG TABLET PO SCH (08:53)
--- NOTE | 2019-02-25 10:22 | Infectious Disease Consult ---
Infectious Disease-Consult - Encounter Date/Time Date of Encounter: 02/25/19 Time of Encounter: 10:18 - Data of Consult Patient: known to practice within the last 3 years Reason for consult: CVC infection Consult date: 02/25/19 Requesting Physician: Maverick Everett Primary Care Provider: PCP NONE - HPI HPI: Ms. 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 The patient was admitted to the hospital 02/24/19 for sepsis and possible CVC infection. We are consulted 02/25/19 for further workup and treatment recommendations for possible CVC infection. Briefly, the patient is a 73 year old female, known to the ID service as we were following her as an outpatient for her right hip prosthetic joint infection. The patient presented to [place] emergency department with complaints of altered mental status and fever. Upon arrival, she had a temperature of 100.9. She was tachycardic, but was otherwise hemodynamically stable. She had leukocytosis with neutrophilic predominance. Lactic acid and renal function were normal. She had elevated transaminases with an AST of 209, ALP of 278, and an alkaline phosphatase of 369. Urinalysis was negative for pyuria and it appears that there is a culture pending. Should a chest x-ray that showed a PICC line that terminated in the right atrium as well as findings consistent with possible bronchitis. She has CT the head that was negative. Blood cultures were obtained peripherally 2 sets and are no growth to date. Her PICC line was discontinued and the catheter tip was sent for culture. She was given a dose of IV vancomycin and was transferred here for further evaluation and treatment. Since admission, the patient has had a MAXIMUM TEMPERATURE of 100.6. She did have some tachycardia which has resolved. Her leukocytosis persists and she has 6% bands today. She is scheduled to undergo a liver ultrasound today. Repeat LFTs were not checked. She had a GI panel that is pending collection. Per nursing, she did have one loose mucousy stool is morning that was not sent to the lab. It also appears she had 3 loose liquidy bowel movements overnight. Currently, she is on cefepime, Flagyl, and vancomycin. We have been asked to evaluate and make further recommendations. During my exam today, some of the information is obtained from the patient's daughter who is at bedside as the patient is somewhat of a poor historian regarding the events leading up to her hospitalization. Apparently, about 4 d ays ago, she developed loose watery stools 4-5 times per day. Per the patient's daughter, this became acutely worse 2 days ago. Otherwise, she was in her usual state of health until early yesterday morning around 300 when the patient was very weak and unable to get out of bed to go to the bathroom. She reports that she noticed patient had a fever, but did not have any chills or shivers. The pa tient denies any known headaches or neck pain. Denies chest pain, shortness of breath, or cough. Reports some intermittent nausea that has been chronic since starting IV antibiotics, but denies any vomiting. States her appetite has been okay. Denies dysuria, urinary frequency, or hematuria. Denies back or flank pain. States her right hip is doing very well and she has been ambulating with a walker. She denies oral thrush or skin rashes. She states her PICC line was working well and states there was a little bit of redness around the insertion site, but no lymphangitis or drainage. She states she had been 100% compliant with her medications. She was seen in the office last week and was doing very well. She tells me that since then, she left the F and has been doing her IV antibiotics at home. The patient lives at home with her daughter and . She does not work outside the home. She denies tobacco, alcohol, illicit drug use. Denies chronic infectious diseases. Denies any pet or animal exposures. Denies recent travel. - ROS Review of Systems: All systems reviewed and no additional remarkable complaints except as stated. - Results CBC & Chem 7: 02/26/19 02:04 02/26/19 02:04 - Exam Vitals: Temp Pulse Resp BP Pulse Ox 98.1 F 91 16 116/73 96 02/25/19 06:43 02/25/19 06:43 02/25/19 06:43 02/25/19 06:43 02/25/19 06:43 Exam: Head: Atraumatic, normal inspection, normocephalic. Eye: EOMI, PERRLA, no scleral icterus noted. ENT: Mucous membranes moist. No odontogenic infection noted. Neck: Normal inspection, no meningismus. Respiratory: Clear to auscultation. No rales, respiratory distress, rhonchi, or wheezes noted. Cardiovascular: Regular rate and rhythm, S1 and S2 audible. No murmurs, rubs, or gallops. GI: Soft, nondistended, normal bowel sounds. Nontender. Extremities:No joint swelling, pedal edema, or tenderness noted. Previous PICC line site noted to the right upper inner arm with trace erythema. Scabbed lesion noted overlying the previous insertion site. No drainage, fluctuance, or lymphangitis noted. Right hip surgical site well-healed without surrounding erythema, warmth, tenderness, or drainage. No fluctuance appreciated. Back: Normal inspection. No vertebral tenderness noted. Neurological: Alert, oriented 3, no focal deficits. Psychiatric: normal affect, normal mood. Skin: Dry, intact, warm. Normal color. No rashes. Albuterol Neb [Proventil Neb] 3 ml IH Q4H PRN 01/14/19 [History] Albuterol Sulfate [Ventolin Hfa] 2 puff PO Q4H PRN 01/14/19 [History] Budesonide/Formoterol 80/4.5 [Symbicort 80/4.5] 1 puff PO BID 01/14/19 [History] Calcium Carbonate/Vitamin D3 [Calcium 600-Vit D3 400 Tablet] 1 tab PO BID 01/14/19 [History] Furosemide [Lasix] 20 mg PO DAILY 01/14/19 [History] Gabapentin [Neurontin] 300 mg PO TID 01/14/19 [History] Losartan Potassium [Cozaar] 100 mg PO DAILY 01/14/19 [History] Omeprazole [PriLOSEC] 40 mg PO DAILY 01/14/19 [History] Ondansetron HCl [Zofran] 4 mg PO Q8H PRN 01/14/19 [History] PARoxetine HCl [Paroxetine HCl] 40 mg PO DAILY 01/14/19 [History] Ranitidine HCl [Heartburn Relief] 150 mg PO BID 01/14/19 [History] Umeclidinium [place] [Incruse Ellipta] 1 puff PO DAILY 01/14/19 [History] hydrOXYzine HCl [Hydroxyzine HCl] 25 mg PO Q6H PRN 01/14/19 [History] Acetaminophen [Tylenol] 650 mg PO Q6HR PRN tablet 01/15/19 [Rx] Aspirin Enteric Coated [Aspirin EC] 325 mg PO DAILY tablet. 01/15/19 [Rx] Docusate [Colace] 100 mg PO BID capsule 01/15/19 [Rx] Cefepime HCl/Dextrose, Iso-Osm [Cefepime 2 gm Injection] 2 gm IV Q12H 42 Days #84 mls 02/03/19 [Rx] Ferrous Sulfate 325 mg PO BIDWM tablet 02/03/19 [Rx] Allergy/AdvReac Type Severity Reaction Status Date / Time No Known Allergies Allergy Verified 01/14/19 18:03 - Assessment and Plan (1) Sepsis Current Visit: Yes Status: Acute The patient had 3 sepsis criteria. Etiology: Unclear. PICC line infection versus diarrheal illness versus other. MAXIMUM TEMPERATURE 100.9 as noted at [facility]. Tachycardia has resolved. Leukocytosis is a little bit worse today with bandemia. Blood cultures drawn 02/24/19 at [facility] are no growth to date 2 sets. Blood cultures drawn here 02/24/19 are no growth to date 2 sets. Lactic acid was normal. Chest x-ray showed bronchitis, but no pneumonia. CT of the head was negative. Currently on cefepime, Flagyl, and vancomycin. Qualifiers: Sepsis type: sepsis due to unspecified organism Qualified Code(s): A41.9 - Sepsis, unspecified organism SNOMED Code(s): 66245060 (2) Metabolic encephalopathy Current Visit: Yes Status: Resolved Likely secondary to sepsis. CT head negative. Appears improved. Continue to monitor closely. SNOMED Code(s): 79145475 (3) Diarrhea Current Visit: Yes Status: Acute Etiology: Unclear. Given the patient's recent history of long-term antibiotic use and acute worsening/onset of diarrhea with sepsis, C. difficile early on the differential. Per nursing, the patient had 3 liquidy watery bowel movements overnight and one thus far this morning. GI panel specimen pending collection. Discussed with nursing. Currently on Flagyl. Qualifiers: Diarrhea type: unspecified type Qualified Code(s): R19.7 - Diarrhea, unspecified SNOMED Code(s): 26251263 (4) Elevated transaminase level Current Visit: Yes Status: Acute Etiology: Unclear. Sepsis versus other. Continue to trend. Abdominal exam benign. Liver ultrasound completed this morning. Report pending. Consider GI to evaluate if worsens/fails to resolve. SNOMED Code(s): 285348828, 709805471 (5) PICC line infection Current Visit: Yes Status: Suspected Her [facility] documentation, there was redness and drainage from the insertion site. PICC line discontinued in the emergency department. Physical exam not impressive for cellulitis at this time. Blood cultures are no growth to date no far, but is not appear that there were any drawn from the PICC line prior to it being removed. Currently on vancomycin and cefepime. Qualifiers: Encounter type: initial encounter Qualified Code(s): T80.219A - Unspecified infection due to central venous catheter, initial encounter SNOMED Code(s): 654600871, 389229495 (6) Surgical site infection Current Visit: No Status: Chronic Location: Right hip. Likely secondary to recent surgery. Causative organism: Pseudomonas aeruginosa. CT of the right hip showed a large rim-enhancing fluid collection containing gas and her deep to the surgical staple line measuring 3.8 x 5.4 x 22 cm. This extends through the surgical wound of the adjacent fashion with fluid also present within the trochanteric bursa, findings highly suspicious for abscess. Orthopedics consulted. Status post right revision femur of hip hemiarthroplasty 01/30/19. Intraoperative cultures as above. Anaerobic cultures were negative. Initially discharged on IV cefepime and oral Flagyl. Oral Flagyl discontinued in the office last week since anaerobic cultures were negative. SNOMED Code(s): 43348811, 991744266 (7) Neuropathy Current Visit: No Status: Chronic SNOMED Code(s): 648947176 (8) COPD (chronic obstructive pulmonary disease) Current Visit: No Status: Chronic Qualifiers: COPD type: emphysema Emphysema type: unspecified Qualified Code(s): J43.9 - Emphysema, unspecified SNOMED Code(s): 34408607 (9) History of hemiarthroplasty of right hip Current Visit: No Status: Acute Status post right hip hemiarthroplasty December 2018. SNOMED Code(s): 388228556 (10) HTN (hypertension) Current Visit: No Status: Chronic Qualifiers: Hypertension type: essential hypertension Qualified Code(s): I10 - Essential (primary) hypertension SNOMED Code(s): 53862191 - Recommendations Recommendations: Await blood cultures to finalize. Await urine culture to finalize. Await catheter tip culture results. Send stool for C. difficile. Empiric C. difficile precautions per policy. Can discontinue if GI panel negative for C. difficile. Repeat LFTs. Await liver ultrasound results. Consider GI to evaluate. Continue cefepime 2 g IV every 12 hours. Discontinue flagyl. Continue vancomycin IV. Pharmacy to dose. Goal trough approximately 15. Start PO Vancomycin 125mg QID. Can discontinue if C. diff negative. Duration of treatment depends on the clinical picture. Monitor renal function and for drug toxicity and dose adjust antibiotics. Past Med Surg Social Fam HX - Past Medical History Medical history: COPD, hypertension Additional medical history: back pain Psychiatric history: no psych history - Past Surgical History Surgical History: cholecystectomy, hysterectomy Additional surgical history: right hip surgery - Social History Smoking Status: Former smoker Smokeless Tobacco Status: No Alcohol use: none Drug use: none - Family History Father Family Member Ethnicity: Non- Living Status: Mother Family Member Ethnicity: Non- Brother Family Member Ethnicity: Non- Living Status: Still Living Sister Family Member Ethnicity: Non- Living Status: Still Living Hx Family Neurologic Disorders: Yes (Neuropathy in LEs) Consult Discharge Plan - Plan Referrals: NONE,PCP [Primary Care Provider] - - Attending Attestation I have personally performed a face to face evaluation on this patient. I have reviewed and agree with the care plan. History and Exam by me shows: Assessment and plan: Sepsis Metabolic encephalopathy Diarrhea Elevated transaminase level PICC line infection Recommendations Await blood cultures to finalize. Await urine culture to finalize. Await catheter tip culture results. Send stool for C. difficile. Empiric C. difficile precautions per policy. Can discontinue if GI panel negative for C. difficile. Repeat LFTs. Await liver ultrasound results. Consider GI to evaluate. Continue cefepime 2 g IV every 12 hours. Discontinue flagyl. Continue vancomycin IV. Pharmacy to dose. Goal trough approximately 15. Start PO Vancomycin 125mg QID. Can discontinue if C. diff negative. Duration of treatment depends on the clinical picture. Monitor renal function and for drug toxicity and dose adjust antibiotics.
[2019-02-25] MEDS ORDERED: Ondansetron ODT 4 MG TAB.RAPDIS SL PRN (11:44)
[2019-02-25 14:09] LABS: Adenovirus F 40/41 PCR Not detected (Not detect); Astrovirus PCR Not detected (Not detect); C.difficile Toxin A/B Gene PCR DETECTED (Not detect); Campylobacter by PCR Not detected (Not detect); Cryptosporidium by PCR Not detected (Not detect); Cyclospora cayetanensis PCR Not detected (Not detect); E. coli O157 by PCR Not detected (Not detect); Entamoeba histolytica PCR Not detected (Not detect); Enteroaggregative E.coli(EAEC) Not detected (Not detect); Enteropathogenic E.coli(EPEC) Not detected (Not detect); Enterotoxigenic E.coli (ETEC) Not detected (Not detect); Giardia lamblia PCR Not detected (Not detect); Norovirus GI/GII PCR Not detected (Not detect); Plesiomonas shigelloides PCR Not detected (Not detect); Rotavirus A PCR Not detected (Not detect); Salmonella PCR Not detected (Not detect); Sapovirus PCR Not detected (Not detect); Shig/EnteroinvasiveE coli EIEC Not detected (Not detect); Shigalike tox-prod E coli STEC Not detected (Not detect); Vibrio PCR Not detected (Not detect); Vibrio cholerae PCR Not detected (Not detect); Yersinia enterocolitica PCR Not detected (Not detect)
--- NOTE | 2019-02-25 16:10 | Internal Med Progress Note ---
Hospitalist Progress Note - Encounter Date of Encounter: 02/25/19 Time of Encounter: 16:08 - Subjective Interval History: Patient presented last night as a transfer from [facility] with sepsis with concern for a PICC line infection. Patient was altered when she originally presented but has since cleared back to her baseline. Already anxious to get out of hospital - Exam Vitals: Temp Pulse Resp BP Pulse Ox 98.4 F 93 17 150/80 97 02/25/19 15:10 02/25/19 15:10 02/25/19 15:10 02/25/19 15:10 02/25/19 15:10 Exam: General: Ill-appearing and in no acute distress HEENT: No erythema of posterior pharynx. No exudates. Lymphatics: No mandibular or cervical lymphadenopathy Cardiovascular: RRR. No murmurs. No chest wall tenderness. Lungs: Clear to auscelltation bilaterally. Regular chest rise. Abdomen: Non-tender. No rebound or gaurding. Nl bowel sounds. Extremities: No edema. 2+ pulses radial and pedal pulses Skin: PICC is now removed - no erythema or tenderness at site Psych: Nl attention. A&Ox3 Neuro: technical assistant II-XII intact. 5/5 strength. Sensation to light touch and pinprick intact. - Assessment and Plan (1) Sepsis Current Visit: Yes Status: Acute Assessment and Plan: Patient with history of recent prosthetic hip infection discharged on IV cefepime and Flagyl through a PICC line presents with sepsis and found to have a PICC site that looks concerning for an infection and acute diarrhea. -PICC line has been removed -Patient rapidly improved with early goal-directed therapy and the addition of medical vancomycin -Infectious disease consultation. Further investigation of diarrhea and her treatment for C. difficile. -Abdominal ultrasound obtained for further workup of LFT abnormalities and was negative for acute process PLAN: - Vancomycin IV, vancomycin oral, cefepime IV - duration per Infectious disease - F/u GI panel - F/u cultures obtained at [place] and at [place] - will need to call for these tomorrow - Infectious disease consultation, appreciate recommendations (2) PICC line infection Current Visit: Yes Status: Suspected Assessment and Plan: See above (3) Diarrhea Current Visit: Yes Status: Acute Assessment and Plan: Patient presents with complaints of acute diarrheal illness, however, per chart review, has had diarrhea at least since last admission as many notes discussed this. Most likely due to antibiotic use, however, will investigate for infectious causes given sepsis and this is a major complaint of patient. - GI panel (4) History of hemiarthroplasty of right hip Current Visit: No Status: Acute Assessment and Plan: Recent admission for infection of right prosthetic hip status post incision and drainage and hardware exchange. - Hip appears to be healing appropriately (5) Elevated transaminase level Current Visit: Yes Status: Acute Assessment and Plan: In setting of sepsis. Right upper quadrant ultrasound without acute pathology. - Trend DVT Prophylaxis: Heparin - Time Spent with Patient Total time spent is greater than 50% in coordination of care (as documented) at patient's floor/unit and/or counseling patient: Greater than 35 minutes Plan of Care Discussed with: patient Internal Medicine: Result - Labs CBC & Chem 7: 02/25/19 07:08 02/25/19 07:08 Labs: Short CBC 02/25/19 Range/Units 07:08 WBC 19.6 H (4.3-11.1) K/mcL Hgb 9.6 L (11.5-15.4) g/dL Hct 32.0 L (35.3-44.9) % Plt Count 315 (140-400) K/mcL Neutrophils # 19.2 H (1.6-8.9) K/mcL BMP 02/25/19 07:08 Sodium 141 Potassium 3.2 L Chloride 103 Carbon Dioxide 30 H BUN 7 L Creatinine 0.48 L Glucose 114 H Calcium 8.1 L - Impressions Impressions Liver Ultrasound 02/25/19 09:00 IMPRESSION: Status post cholecystectomy. Mild prominence of the pancreatic duct which is nonspecific in an elderly patient. Please correlate clinically. Liver appears unremarkable in appearance. D/ / 02/25/2019 10:42:26 Jamshid Fontana MD / [email or web address] Interpreting Provider: Jamshid Fontana MD Consult Discharge Plan - Plan Referrals: NONE,PCP [Primary Care Provider] - ____ (1) Sepsis Qualifiers: Sepsis type: sepsis due to unspecified organism Qualified Code(s): A41.9 - Sepsis, unspecified organism (2) PICC line infection Qualifiers: Encounter type: initial encounter Qualified Code(s): T80.219A - Unspecified infection due to central venous catheter, initial encounter (3) Diarrhea Qualifiers: Diarrhea type: unspecified type Qualified Code(s): R19.7 - Diarrhea, unspecified
[2019-02-25] MEDS ORDERED: Ondansetron ODT 4 MG TAB.RAPDIS PO PRN (16:29)
[2019-02-25] MEDS ORDERED: Albuterol 2.5 MG/3 ML NEBULIZER IH PRN (16:29)
[2019-02-25] MEDS: Vancomycin Oral Soln 125 MG/2.5 ML UDC PO SCH ×2 (16:36→20:04)
[2019-02-25] MEDS: (Umeclidinium Bromide [Incruse Ellipta] 1 PUFF) PO SCH (17:54)
[2019-02-25] MEDS: Gabapentin 300 MG CAPSULE PO SCH (20:03)
[2019-02-25] MEDS: Famotidine 20 MG TABLET PO SCH (20:03)
[2019-02-25] MEDS: Budesonide/Formoterol 80/4.5 MDI IH SCH (22:29)
[2019-02-26 02:32] LABS: White Blood Count 15.7 K/mcL (4.3-11.1)
[2019-02-26 02:33] LABS: Basophils % 0.2 %; Eosinophils # 0.4 K/mcL (0.0-0.6); Eosinophils % 2.2 %; Hematocrit 30.9 % (35.3-44.9); Hemoglobin 9.3 g/dL (11.5-15.4); Immature Granulocytes % 0.3 % (0-4); Lymphocytes # 1.8 K/mcL (0.6-4.6); Lymphocytes % 11.5 %; Mean Corpuscular HGB Conc 30.1 g/dL (31.6-35.5); Mean Corpuscular Hemoglobin 28.4 pg (28.0-33.3); Mean Corpuscular Volume 94.5 fL (83.0-100.0); Mean Platelet Volume 10.1 fL (9.4-12.4); Monocytes % 6.3 %; Neutrophils # 12.5 K/mcL (1.6-8.9); Platelet Count 334 K/mcL (140-400); Red Blood Count 3.27 M/mcL (3.82-4.97); Red Cell Distribution Width 14.1 % (11.5-14.5); Segmented Neutrophils % 79.5 %
[2019-02-26 02:51] LABS: Alanine Aminotransferase 73 Units/L (7-52); Albumin 2.9 g/dL (3.5-5.7); Alkaline Phosphatase 190 Units/L (34-104); Aspartate Amino Transferase 26 Units/L (13-39); BUN/Creatinine Ratio 14 (6-26); Bilirubin,Direct 0.1 mg/dL (0.0-0.2); Bilirubin,Indirect 0.2 mg/dL (0.0-1.2); Bilirubin,Total 0.3 mg/dL (0.3-1.0); Blood Urea Nitrogen 6 mg/dL (8-23); Calcium 8.3 mg/dL (8.6-10.3); Carbon Dioxide 29 mEq/L (23-29); Chloride 106 mEq/L (98-107); Glucose 105 mg/dL (70-105); Osmolality,Calculated 290 (280-300); Potassium 3.1 mEq/L (3.5-5.1); Sodium 141 mEq/L (136-145); Total Protein 5.9 g/dL (6.4-8.9); eGFR For African Americans > 60 (> 60); eGFR For Non-African Americans > 60 (> 60)
[2019-02-26] MEDS: *HR* Heparin 5,000 UNIT/ML VIAL SQ SCH ×2 (06:19→17:16)
[2019-02-26] MEDS: Cefepime HCl 2,000 MG in Water for inj. (sterile) 20 ML IVP SCH ×2 (06:19→17:17)
[2019-02-26] MEDS: Budesonide/Formoterol 80/4.5 MDI IH SCH ×2 (07:28→19:32)
[2019-02-26] MEDS: Vancomycin Oral Soln 125 MG/2.5 ML UDC PO SCH ×4 (08:03→20:26)
[2019-02-26] MEDS: *HR* HYDROcodone/Acet 5/325 mg TABLET PO PRN ×2 (08:03→15:08)
[2019-02-26] MEDS: Furosemide 20 MG TABLET PO SCH (08:04)
[2019-02-26] MEDS: Famotidine 20 MG TABLET PO SCH ×2 (08:04→20:23)
[2019-02-26] MEDS: Gabapentin 300 MG CAPSULE PO SCH ×3 (08:04→20:23)
[2019-02-26] MEDS: Aspirin Enteric Coated 325 MG Tablet PO SCH (08:04)
[2019-02-26] MEDS: (Umeclidinium Bromide [Incruse Ellipta] 1 PUFF) PO SCH (08:12)
[2019-02-26] MEDS ORDERED: Albuterol 2.5 MG/3 ML NEBULIZER IH PRN (09:15)
--- NOTE | 2019-02-26 09:52 | Infectious Disease Progress No ---
ID Progress Note Date of Encounter: 02/26/19 Time of Encounter: 09:30 - Subjective Subjective: Patient seen and examined. No acute events noted overnight. Patient states overall she feels better. Denies fevers, chills, or rigors. Denies chest pain, shortness of breath, or cough. Denies nausea, vomiting, or constipation. Reports last stool was 200 this morning and was still pretty watery. Denies abdominal pain or urinary complaints. Denies rash or skin rashes. Denies any pain in her back, joints, or extremities. - Objective CBC & Chem 7: 02/27/19 06:47 02/27/19 06:47 - Exam Vitals: Temp Pulse Resp BP Pulse Ox 98.3 F 85 18 138/77 98 02/26/19 06:56 02/26/19 06:56 02/26/19 07:29 02/26/19 06:56 02/26/19 07:29 Exam: Head: Atraumatic, normal inspection, normocephalic. Eye: EOMI, PERRLA, no scleral icterus noted. ENT: Mucous membranes moist. No odontogenic infection noted. Neck: Normal inspection, no meningismus. Respiratory: Clear to auscultation. No rales, respiratory distress, rhonchi, or wheezes noted. Cardiovascular: Regular rate and rhythm, S1 and S2 audible. No murmurs, rubs, or gallops. GI: Soft, nondistended, normal bowel sounds. Nontender. Extremities: No joint swelling, pedal edema, or tenderness noted. Previous PICC line site noted to the right upper inner arm with trace erythema. Scabbed lesion noted overlying the previous insertion site. No drainage, fluctuance, or lymphangitis noted. Right hip surgical site well-healed without surrounding erythema, warmth, tenderness, or drainage. No fluctuance appreciated. Neurological: Alert, oriented 3, no focal deficits. Psychiatric: normal affect, normal mood. Skin: Dry, intact, warm. Normal color. No rashes. - Assessment and Plan (1) Sepsis Current Visit: Yes Status: Resolved The patient had 3 sepsis criteria. Likely secondary to C. difficile. Afebrile overnight. WBC trending down. Tachycardia has resolved. Blood cultures drawn 02/24/19 at [facility] are no growth to date 2 sets. Blood cultures drawn here 02/24/19 are no growth to date 2 sets. Qualifiers: Sepsis type: sepsis due to unspecified organism Qualified Code(s): A41.9 - Sepsis, unspecified organism SNOMED Code(s): 37843875 (2) C. difficile diarrhea Current Visit: Yes Status: Suspected Likely secondary to recent antibiotic use. Additionally, the patient was also recently in the custodial. C. difficile PCR positive, but the EIA was negative. However, the patient's clinical picture is consistent with active C. difficile infection. Non-severe. No imaging of the abdomen has been done, however, the patient's abdominal exam is benign and without evidence of toxic megacolon or ileus, and she does not have hypotension. Clinically improved. Currently on oral vancomycin. SNOMED Code(s): 2021897357123 (3) Metabolic encephalopathy Current Visit: Yes Status: Resolved Likely secondary to sepsis. CT head negative. Appears improved. Continue to monitor closely. SNOMED Code(s): 26116674 (4) Diarrhea Current Visit: Yes Status: Acute Likely secondary to C. difficile. Frequency improved per patient report, but stools remain watery. Qualifiers: Diarrhea type: unspecified type Qualified Code(s): R19.7 - Diarrhea, unspecified SNOMED Code(s): 02724485 (5) Elevated transaminase level Current Visit: Yes Status: Resolved Etiology: Unclear. Sepsis versus other. Improved. Continue to trend. Abdominal exam benign. Liver ultrasound negative for acute abnormality. SNOMED Code(s): 477598987, 975109673 (6) PICC line infection Current Visit: Yes Status: Suspected Per [place] [facility] documentation, there was redness and drainage from the insertion site. PICC line discontinued in the emergency department. Physical exam not impressive for cellulitis at this time. Blood cultures are no growth to date no far, but is not appear that there were any drawn from the PICC line prior to it being removed. Currently on vancomycin and cefepime. Qualifiers: Encounter type: initial encounter Qualified Code(s): T80.219A - Unspecified infection due to central venous catheter, initial encounter SNOMED Code(s): 010998060, 415877606 (7) Surgical site infection Current Visit: No Status: Chronic Location: Right hip. Likely secondary to recent surgery. Causative organism: Pseudomonas aeruginosa. CT of the right hip showed a large rim-enhancing fluid collection containing gas and her deep to the surgical staple line measuring 3.8 x 5.4 x 22 cm. This extends through the surgical wound of the adjacent fashion with fluid also present within the trochanteric bursa, findings highly suspicious for abscess. Orthopedics consulted. Status post right revision femur of hip hemiarthroplasty 01/30/19. Intraoperative cultures as above. Anaerobic cultures were negative. Initially discharged on IV cefepime and oral Flagyl. Oral Flagyl discontinued i n the office last week since anaerobic cultures were negative. Currently on IV cefepime. Planned to treat through 03/13/19 with IV antibiotics. SNOMED Code(s): 31761267, 084734442 (8) Neuropathy Current Visit: No Status: Chronic SNOMED Code(s): 441778729 (9) COPD (chronic obstructive pulmonary disease) Current Visit: No Status: Chronic Qualifiers: COPD type: emphysema Emphysema type: unspecified Qualified Code(s): J43.9 - Emphysema, unspecified SNOMED Code(s): 95250397 (10) History of hemiarthroplasty of right hip Current Visit: No Status: Chronic Status post right hip hemiarthroplasty December 2018. SNOMED Code(s): 275370070 (11) HTN (hypertension) Current Visit: No Status: Chronic Qualifiers: Hypertension type: essential hypertension Qualified Code(s): I10 - Es sential (primary) hypertension SNOMED Code(s): 80123529 - Recommendations Recommendations: Await blood cultures to finalize. Continue to trend LFTs. Continue cefepime 2 g IV every 12 hours. Continue vancomycin IV. Pharmacy to dose. Goal trough approximately 15. Continue PO Vancomycin 125mg QID. Duration of treatment depends on the clinical picture. 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 Will need to continue PO Vancomycin for at least 14 days, but will likely continue for the duration of IV antibiotic therapy as well. Monitor renal function and for drug toxicity and dose adjust antibiotics. C. diff precautions per hospital policy. Consult Discharge Plan - Plan Referrals: Shelly Virgen DEPARTMENT HELPER [Advanced Practice Nurse] - 03/04/19 4:00 pm NONE,PCP [Primary Care Provider] - Prescriptions: Cefepime HCl/Dextrose, Iso-Osm [Cefepime 2 gm Injection] 2 gm IV Q12H 17 Days #34 mls Vancomycin Oral Soln [Firvanq] 125 mg PO QID 10 Days #40 udc - Attending Attestation I have personally performed a face to face evaluation on this patient. I have reviewed and agree with the care plan. History and Exam by me shows: Assessment and plan: 1.Sepsis 2.Metabolic encephalopathy 3.Diarrhea 4.Elevated transaminase level 5.PICC line infection Recommendations Await blood cultures to finalize. Continue to trend LFTs. Continue cefepime 2 g IV every 12 hours. Continue vancomycin IV. Pharmacy to dose. Goal trough approximately 15. Continue PO Vancomycin 125mg QID. Duration of treatment depends on the clinical picture. 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 Will need to continue PO Vancomycin for at least 14 days, but will likely continue for the duration of IV antibiotic therapy as well. Monitor renal function and for drug toxicity and dose adjust antibiotics. C. diff precautions per hospital policy.
[2019-02-26] MEDS: Tiotropium 18 MCG inhalation IH SCH (12:08)
--- NOTE | 2019-02-26 14:43 | Internal Med Progress Note ---
Hospitalist Progress Note - Encounter Date of Encounter: 02/26/19 Time of Encounter: 14:39 - Subjective Interval History: I have seen and evaluated patient bedside. Patient reports having 1-2 bowel movement per day. Denies abdominal pain, nausea vomiting. Denies chest pain. Reports feeling better today. - Exam Vitals: Temp Pulse Resp BP Pulse Ox 98.2 F 83 18 130/72 98 02/26/19 11:08 02/26/19 11:08 02/26/19 12:09 02/26/19 11:08 02/26/19 12:09 Exam: Vitals: Reviewed. General: Alert and oriented x4. In no distress Cardiovascular: RRR, normal S1 & S2, no rubs, murmurs or gallops. Lungs: CTA b/l, no wheezes or crackles. Abdomen: Soft, non-tender, no rigidity. Extremities: No edema Neurological: Normal cognition and motor skills. Rest of the physical exam is non contributory - Assessment and Plan (1) Sepsis Current Visit: Yes Status: Acute Assessment and Plan: secondary to C.diff colitis and possible CVC infection. Blood culture: No growth to date C.diff toxin A&B by EIA: not detected. gene detected by PCR. Plan patient is on cefepime 2gm/IV Q12HRs and vancomicin per pharmacy protocol for possible line infection and to complete treatment for joint infection on oral vancomycin for possible C.Diff ID recommendations appreciated (2) History of hemiarthroplasty of right hip Current Visit: No Status: Acute Assessment and Plan: Recent admission for infection of right prosthetic hip status post incision and drainage and hardware exchange. No sign of infection at the surgical site (3) PICC line infection Current Visit: Yes Status: Suspected Assessment and Plan: PICC line removed and tip sent for culture. patient on broad spectrum IV antibiotics (4) Elevated transaminase level Current Visit: Yes Status: Acute Assessment and Plan: US/US liver IMPRESSION: Status post cholecystectomy. Mild prominence of the pancreatic duct which is nonspecific in an elderly patient. Please correlate clinically. Liver appears unremarkable in appearance. Plan hepatitis panel will repeat LFTs tomorrow morning (5) C. difficile diarrhea Current Visit: Yes Status: Suspected Assessment and Plan: plan of care as per problem #1 (6) Hypertension Current Visit: Yes Status: Chronic Assessment and Plan: Blood pressures well controlled. Patient is on losartan 100 mg by mouth daily and furosemide 20 mg by mouth daily. DVT Prophylaxis: On heparin subcutaneous. - Summary of Assessment and Plan Summary of Assessment and Plan: Patient to remain in the hospital due to sepsis, on broad-spectrum antibiotic. - Time Spent with Patient Total time spent is greater than 50% in coordination of care (as documented) at patient's floor/unit and/or counseling patient: Greater than 35 minutes (40) Plan of Care Discussed with: patient (and the nurse.) Internal Medicine: Result - Labs CBC & Chem 7: 02/26/19 02:04 02/26/19 02:04 Labs: Short CBC 02/26/19 Range/Units 02:04 WBC 15.7 H (4.3-11.1) K/mcL Hgb 9.3 L (11.5-15.4) g/dL Hct 30.9 L (35.3-44.9) % Plt Count 334 (140-400) K/mcL Neutrophils # 12.5 H (1.6-8.9) K/mcL BMP 02/26/19 02:04 Sodium 141 Potassium 3.1 L Chloride 106 Carbon Dioxide 29 BUN 6 L Creatinine 0.42 L Glucose 105 Calcium 8.3 L Liver Function 02/26/19 Range/Units 02:04 Total Bilirubin 0.3 (0.3-1.0) mg/dL Direct Bilirubin 0.1 (0.0-0.2) mg/dL AST 26 (13-39) Units/L ALT 73 H (7-52) Units/L Alkaline Phosphatase 190 H (34-104) Units/L Albumin 2.9 L (3.5-5.7) g/dL Consult Discharge Plan - Plan Referrals: NONE,PCP [Primary Care Provider] - __ (1) Sepsis Qualifiers: Sepsis type: sepsis due to unspecified organism Qualified Code(s): A41.9 - Sepsis, unspecified organism (3) PICC line infection Qualifiers: Encounter type: initial encounter Qualified Code(s): T80.219A - Unspecified infection due to central venous catheter, initial encounter (6) Hypertension Qualifiers: Hypertension type: unspecified Qualified Code(s): I10 - Essential (primary) hypertension
[2019-02-26] MEDS ORDERED: Aminoglycoside Consult 1 EACH MC ONE (18:02)
[2019-02-27] MEDS: Cefepime HCl 2,000 MG in Water for inj. (sterile) 20 ML IVP SCH ×2 (05:22→17:09)
[2019-02-27] MEDS: *HR* Heparin 5,000 UNIT/ML VIAL SQ SCH ×2 (05:25→17:08)
[2019-02-27 07:17] LABS: Basophils % 0.3 %; Eosinophils # 0.5 K/mcL (0.0-0.6); Eosinophils % 6.3 %; Hematocrit 31.5 % (35.3-44.9); Hemoglobin 9.4 g/dL (11.5-15.4); Immature Granulocytes % 0.4 % (0-4); Lymphocytes # 1.6 K/mcL (0.6-4.6); Lymphocytes % 21.9 %; Mean Corpuscular HGB Conc 29.8 g/dL (31.6-35.5); Mean Corpuscular Hemoglobin 28.2 pg (28.0-33.3); Mean Corpuscular Volume 94.6 fL (83.0-100.0); Mean Platelet Volume 10.4 fL (9.4-12.4); Monocytes # 0.5 K/mcL (0.0-1.3); Monocytes % 6.3 %; Neutrophils # 4.9 K/mcL (1.6-8.9); Platelet Count 352 K/mcL (140-400); Red Blood Count 3.33 M/mcL (3.82-4.97); Red Cell Distribution Width 14.2 % (11.5-14.5); Segmented Neutrophils % 64.8 %
[2019-02-27 07:23] LABS: White Blood Count 7.5 K/mcL (4.3-11.1)
[2019-02-27 07:31] LABS: Alanine Aminotransferase 47 Units/L (7-52); Albumin 2.8 g/dL (3.5-5.7); Albumin/Globulin Ratio 0.9 (1.1-2.2); Alkaline Phosphatase 151 Units/L (34-104); Aspartate Amino Transferase 14 Units/L (13-39); BUN/Creatinine Ratio 15 (6-26); Bilirubin,Indirect 0.2 mg/dL (0.0-1.2); Bilirubin,Total 0.2 mg/dL (0.3-1.0); Blood Urea Nitrogen 7 mg/dL (8-23); Calcium 8.2 mg/dL (8.6-10.3); Carbon Dioxide 29 mEq/L (23-29); Chloride 105 mEq/L (98-107); Globulin 3.1 g/dL (2.4-3.5); Glucose 103 mg/dL (70-105); Magnesium 1.8 mg/dL (1.6-2.6); Osmolality,Calculated 296 (280-300); Phosphorous 3.2 mg/dL (2.7-4.5); Potassium 3.3 mEq/L (3.5-5.1); Sodium 144 mEq/L (136-145); Total Protein 5.9 g/dL (6.4-8.9); eGFR For African Americans > 60 (> 60); eGFR For Non-African Americans > 60 (> 60)
[2019-02-27] MEDS: Tiotropium 18 MCG inhalation IH SCH (07:31)
[2019-02-27] MEDS: Budesonide/Formoterol 80/4.5 MDI IH SCH ×2 (07:31→19:52)
[2019-02-27 07:59] LABS: Hepatitis B Surface Antigen Nonreactive (Nonreactive)
[2019-02-27 08:28] LABS: Hepatitis C Virus Antibody Nonreactive (Nonreactive)
[2019-02-27 08:29] LABS: Hepatitis B Core IgM Nonreactive (Nonreactive)
[2019-02-27 08:30] LABS: Hepatitis A Antibody IgM Nonreactive (Nonreactive)
[2019-02-27 08:59] LABS: Gamma Glutamyl Transpeptidase 104 Units/L (1-24)
--- NOTE | 2019-02-27 10:01 | Infectious Disease Progress No ---
ID Progress Note Date of Encounter: 02/27/19 Time of Encounter: 09:59 - Subjective Subjective: Patient seen and examined. No acute events noted overnight. Patient states overall she feels better. Denies fevers, chills, or rigors. Denies chest pain, shortness of breath, or cough. Denies nausea, vomiting, or constipation. Reports last stool was this morning and was less watery and states stools are less frequent. Denies abdominal pain or urinary complaints. Denies rash or skin rashes. Denies any pain in her back, joints, or extremities. - Objective CBC & Chem 7: 02/27/19 06:47 02/27/19 06:47 - Exam Vitals: Temp Pulse Resp BP Pulse Ox 98.7 F 80 18 154/87 100 02/27/19 07:50 02/27/19 07:50 02/27/19 07:50 02/27/19 07:50 02/27/19 07:50 Exam: Head: Atraumatic, normal inspection, normocephalic. Eye: EOMI, PERRLA, no scleral icterus noted. ENT: Mucous membranes moist. No odontogenic infection noted. Neck: Normal inspection, no meningismus. Respiratory: Clear to auscultation. No rales, respiratory distress, rhonchi, or wheezes noted. Cardiovascular: Regular rate and rhythm, S1 and S2 audible. No murmurs, rubs, or gallops. GI: Soft, nondistended, normal bowel sounds. Nontender. Extremities: No joint swelling, pedal edema, or tenderness noted. Previous PICC line site noted to the right upper inner arm without erythema. Scabbed lesion noted overlying the previous insertion site. No drainage, fluctuance, or lymphangitis noted. Right hip surgical site well-healed without surrounding erythema, warmth, tenderness, or drainage. No fluctuance appreciated. Neurological: Alert, oriented 3, no focal deficits. Psychiatric: normal affect, normal mood. Skin: Dry, intact, warm. Normal color. No rashes. - Assessment and Plan (1) Sepsis Current Visit: Yes Status: Acute The patient had 3 sepsis criteria. Likely secondary to C. difficile. Afebrile overnight. WBC normal. Tachycardia has resolved. Blood cultures drawn 02/24/19 at [facility] are no growth to date 2 sets. Blood cultures drawn here 02/24/19 are no growth to date 2 sets. Qualifiers: Sepsis type: sepsis due to unspecified organism Qualified Code(s): A41.9 - Sepsis, unspecified organism SNOMED Code(s): 80215945 (2) C. difficile diarrhea Current Visit: Yes Status: Suspected Likely secondary to recent antibiotic use. Additionally, the patient was also recently in the [place] [facility]. C. difficile PCR positive, but the EIA was negative. However, the patient's clinical picture is consistent with active C. difficile infection. Non-severe. No imaging of the abdomen has been done, however, the patient's abdominal exam is benign and without evidence of toxic megacolon or ileus, and she does not have hypotension. Clinically improved. Currently on oral vancomycin. SNOMED Code(s): 8750545353657 (3) Metabolic encephalopathy Current Visit: Yes Status: Resolved Likely secondary to sepsis. CT head negative. Appears improved. Continue to monitor closely. SNOMED Code(s): 98688970 (4) Diarrhea Current Visit: Yes Status: Acute Likely secondary to recent antibiotic use. Additionally, the patient was also recently in the [place] [facility]. C. difficile PCR positive, but the EIA was negative. However, the patient's clinical picture is consistent with active C. difficile infection. Clinically improved. Per that patient, stools are less frequent and more formed. Currently on oral Vancomycin. Qualifiers: Diarrhea type: unspecified type Qualified Code(s): R19.7 - Diarrhea, unspecified SNOMED Code(s): 48680309 (5) Elevated transaminase level Current Visit: Yes Status: Acute Etiology: Unclear. Sepsis versus other. Improved. Continue to trend. Abdominal exam benign. Liver ultrasound negative for acute abnormality. Improved. SNOMED Code(s): 159747113, 916817824 (6) PICC line infection Current Visit: Yes Status: Suspected Per [place] ER documentation, there was redness and drainage from the insertion site. PICC line discontinued in the emergency department. Physical exam not impressive for cellulitis at this time. Blood cultures are no growth to date no far, but is not appear that there were any drawn from the PICC line prior to it being removed. Called [facility] and confirmed that cultures remain negative. Currently on vancomycin and cefepime. Qualifiers: Encounter type: initial encounter Qualified Code(s): T80.219A - Unspecified infection due to central venous catheter, initial encounter SNOMED Code(s): 358212465, 645459872 (7) Surgical site infection Current Visit: No Status: Chronic Location: Right hip. Likely secondary to recent surgery. Causative organism: Pseudomonas aeruginosa. CT of the right hip showed a large rim-enhancing fluid collection containing gas and her deep to the surgical staple line measuring 3.8 x 5.4 x 22 cm. This extends through the surgical wound of the adjacent fashion with fluid also present within the trochanteric bursa, findings highly suspicious for abscess. Orthopedics consulted. Status post right revision femur of hip hemiarthroplasty 01/30/19. Intraoperative cultures as above. Anaerobic cultures were negative. Initially discharged on IV cefepime and oral Flagyl. Oral Flagyl discontinued in the office last week since anaerobic cultures were negative. Currently on IV cefepime. Planned to treat through 03/13/19 with IV antibiotics. SNOMED Code(s): 79689416, 185843193 (8) Neuropathy Current Visit: No Status: Chronic SNOMED Code(s): 272526268 (9) COPD (chronic obstructive pulmonary disease) Current Visit: No Status: Chronic Qualifiers: COPD type: emphysema Emphysema type: unspecified Qualified Code(s): J43.9 - Emphysema, unspecified SNOMED Code(s): 78171917 (10) History of hemiarthroplasty of right hip Current Visit: No Status: Acute Status post right hip hemiarthroplasty December 2018. SNOMED Code(s): 224025885 (11) HTN (hypertension) Current Visit: No Status: Chronic Qualifiers: Hypertension type: essential hypertension Qualified Code(s): I10 - Essential (primary) hypertension SNOMED Code(s): 54021123 - Recommendations Recommendations: Await blood cultures to finalize. Continue to trend LFTs. Continue cefepime 2 g IV every 12 hours. Continue PO Vancomycin 125mg QID. Discontinue IV Vancomycin. Duration of treatment depends on the clinical picture. 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 Will need to continue PO Vancomycin for at least 14 days, but will likely continue for the duration of IV antibiotic therapy as well . Monitor renal function and for drug toxicity and dose adjust antibiotics. C. diff precautions per hospital policy. Consult VAT for midline re-insertion. Will need weekly CBC, BUN/Cr, ESR, CRP. Will need weekly midline care per protocol. Follow up with ID 03/04/19 at 1600. Consult Discharge Plan - Plan Referrals: NONE,PCP [Primary Care Provider] - Shelly Virgen, AEROSPACE PROJECT ENGINEER [Advanced Practice Nurse] - 03/04/19 4:00 pm
--- NOTE | 2019-02-27 10:19 | Discharge Summary ---
Orders not resulted at time of discharge: Pending orders 02/24/19 14:55 Culture,Blood [BC] Stat Date of Encounter: 02/27/19 Time of Encounter: 10:11 - Discharge Diagnosis (1) Sepsis Priority: Primary Status: Resolved Qualifiers: Sepsis type: sepsis due to unspecified organism Qualified Code(s): A41.9 - Sepsis, unspecified organism (2) History of hemiarthroplasty of right hip Priority: Secondary Status: Chronic (3) PICC line infection Priority: Secondary Status: Suspected Qualifiers: Encounter type: initial encounter Qualified Code(s): T80.219A - Unspecified infection due to central venous catheter, initial encounter (4) Elevated transaminase level Priority: Secondary Status: Resolved (5) C. difficile diarrhea Priority: Primary Status: Suspected (6) Hypertension Priority: Secondary Status: Chronic Qualifiers: Hypertension type: unspecified Qualified Code(s): I10 - Essential (primary) hypertension Hospital course: Ms. 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 For the last 2-3 days, the staff at her ECF noted that her PICC site appeared more erythematous and started draining some fluid underneath the dressing. Patient also was found to be confused, wbc count of 16K and febrile. PICC line was removed and patient was started on broad spectrum IV antibiotics and was transferred to [facility] for continuation of care. Patient was admitted to the hospital due to sepsis, possible C.diff colitis and transaminitis. LFTs trended back to WNL. Patient was started on oral vancomycin for concern of possible C.diff colitis as patient reported diarrhea and C.diff PCR was positive, c.diff stool toxin A&B EIA negative. ID recommended to treat patient with oral vancomycin and to continue IV cefepime until 03/15/19 to complete treatment. Patient is hemodynamically stable to be discharged. Recommended to follow up with ID as scheduled. - Time Spent with Patient Total time spent providing and/or coordinating discharge services: Time spent: Greater than 30 minutes (35) - Discharge Medications Prescriptions: New Vancomycin Oral Soln [Firvanq] 125 mg PO QID 10 Days #40 udc Continued Albuterol Neb [Proventil Neb] 3 ml IH Q4H PRN PRN Reason: Shortness Of Breath Albuterol Sulfate [Ventolin Hfa] 2 puff PO Q4H PRN PRN Reason: Shortness Of Breath Budesonide/Formoterol 80/4.5 [Symbicort 80/4.5] 1 puff PO BID Calcium Carbonate/Vitamin D3 [Calcium 600-Vit D3 400 Tablet] 1 tab PO BID Furosemide [Lasix] 20 mg PO DAILY Gabapentin [Neurontin] 300 mg PO TID hydrOXYzine HCl [Hydroxyzine HCl] 25 mg PO Q6H PRN PRN Reason: Itching Losartan Potassium [Cozaar] 100 mg PO DAILY Omeprazole [PriLOSEC] 40 mg PO DAILY Ondansetron HCl [Zofran] 4 mg PO Q8H PRN PRN Reason: NAUSEA/VOMITING PARoxetine HCl [Paroxetine HCl] 40 mg PO DAILY Ranitidine HCl [Heartburn Relief] 150 mg PO BID Umeclidinium [place] [Incruse Ellipta] 1 puff PO DAILY Aspirin Enteric Coated [Aspirin EC] 325 mg PO DAILY tablet. Acetaminophen [Tylenol] 650 mg PO Q6HR PRN tablet PRN Reason: Mild Pain/Fever Docusate [Colace] 100 mg PO BID capsule Ferrous Sulfate 325 mg PO BIDWM tablet Cefepime HCl/Dextrose, Iso-Osm [Cefepime 2 gm Injection] 2 gm IV Q12H 17 Days #34 mls Home Medications: Albuterol Neb [Proventil Neb] 3 ml IH Q4H PRN 01/14/19 [History] Albuterol Sulfate [Ventolin Hfa] 2 puff PO Q4H PRN 01/14/19 [History] Budesonide/Formoterol 80/4.5 [Symbicort 80/4.5] 1 puff PO BID 01/14/19 [History] Calcium Carbonate/Vitamin D3 [Calcium 600-Vit D3 400 Tablet] 1 tab PO BID 01/14/19 [History] Furosemide [Lasix] 20 mg PO DAILY 01/14/19 [History] Gabapentin [Neurontin] 300 mg PO TID 01/14/19 [History] Losartan Potassium [Cozaar] 100 mg PO DAILY 01/14/19 [History] Omeprazole [PriLOSEC] 40 mg PO DAILY 01/14/19 [History] Ondansetron HCl [Zofran] 4 mg PO Q8H PRN 01/14/19 [History] PARoxetine HCl [Paroxetine HCl] 40 mg PO DAILY 01/14/19 [History] Ranitidine HCl [Heartburn Relief] 150 mg PO BID 01/14/19 [History] Umeclidinium [place] [Incruse Ellipta] 1 puff PO DAILY 01/14/19 [History] hydrOXYzine HCl [Hydroxyzine HCl] 25 mg PO Q6H PRN 01/14/19 [History] Acetaminophen [Tylenol] 650 mg PO Q6HR PRN tablet 01/15/19 [Rx] Aspirin Enteric Coated [Aspirin EC] 325 mg PO DAILY tablet. 01/15/19 [Rx] Docusate [Colace] 100 mg PO BID capsule 01/15/19 [Rx] Ferrous Sulfate 325 mg PO BIDWM tablet 02/03/19 [Rx] Cefepime HCl/Dextrose, Iso-Osm [Cefepime 2 gm Injection] 2 gm IV Q12H 17 Days #34 mls 02/27/19 [Rx] Vancomycin Oral Soln [Firvanq] 125 mg PO QID 10 Days #40 udc 02/27/19 [Rx] Allergies/Adverse Reactions: Allergy/AdvReac Type Severity Reaction Status Date / Time No Known Allergies Allergy Verified 01/14/19 18:03 Date of admission: 02/24/19 11:32 Primary care physician: PCP NONE Consults: 02/24/19 11:56 Consult to Pastoral Services [CONS] Routine Comment: 02/25/19 09:20 Consult to Echo Vasc Tech [CONS] Routine Reason for SW Consult: from [facility] 02/25/19 09:59 Consult to Infectious Diseases [CONS] Routine Consulting Provider: Infectious Disease [place] Reason for Consult: CVC infection Call Completed: Yes 02/27/19 08:11 Consult to Invasive Line Access Team [CONS] Routine Reason for Consult: home atb Line Type: Midline - Constitutional Vitals: Temp Pulse Resp BP Pulse Ox 98.7 F 80 18 154/87 100 02/27/19 07:50 02/27/19 07:50 02/27/19 07:50 02/27/19 07:50 02/27/19 07:50 Exam: Vitals: Reviewed. General: Alert and oriented x4. In no distress Cardiovascular: RRR, normal S1 & S2, no rubs, murmurs or gallops. Lungs: CTA b/l, no wheezes or crackles. Abdomen: Soft, non-tender, no rigidity. NABS in all 4 quadrants Extremities: No edema Neurological: No focal neurological abnormalities Rest of the physical exam is non contributory - Patient Status Disposition: Transfer SNF Condition: Good Functional capacity at discharge: independent ambulation Overall status at discharge: patient is back to baseline - Discharge Instructions Follow Up With: Shelly Virgen COUNSELOR EDUCATION PROFESSOR [Advanced Practice Nurse] - 03/04/19 4:00 pm NONE,PCP [Primary Care Provider] - - Diet and Activity Activity: resume usual activities as tolerated Diet: low salt diet
--- NOTE | 2019-02-27 10:27 | Physician Discharge Referral ---
Home Health/Hosp Referral Info Transfer to: Home Health - Diagnosis (1) Sepsis Priority: Primary Status: Resolved (2) History of hemiarthroplasty of right hip Priority: Secondary Status: Chronic (3) PICC line infection Priority: Primary Status: Suspected (4) Elevated transaminase level Priority: Secondary Status: Resolved (5) C. difficile diarrhea Priority: Secondary Status: Suspected (6) Hypertension Priority: Secondary Status: Chronic - Respiratory Orders None Smoking Cessation: Smoking cessation has been advised. For more information, call the [place] [employer] Quit Line at 5-333-ISOP-NOW. - Diet/Nutrition Diet/Nutrition Orders: Regular - Activity Activity Orders: Ambulate - Services Needed Following services are medically necessary services: Nursing, Home Health Aide, Physical Therapy, Occupational Therapy - Transfer Medications Prescriptions: Cefepime HCl/Dextrose, Iso-Osm [Cefepime 2 gm Injection] 2 gm IV Q12H 17 Days #34 mls Vancomycin Oral Soln [Firvanq] 125 mg PO QID 10 Days #40 udc Home Medications: Albuterol Neb [Proventil Neb] 3 ml IH Q4H PRN 01/14/19 [History] Albuterol Sulfate [Ventolin Hfa] 2 puff PO Q4H PRN 01/14/19 [History] Budesonide/Formoterol 80/4.5 [Symbicort 80/4.5] 1 puff PO BID 01/14/19 [History] Calcium Carbonate/Vitamin D3 [Calcium 600-Vit D3 400 Tablet] 1 tab PO BID 01/14/19 [History] Furosemide [Lasix] 20 mg PO DAILY 01/14/19 [History] Gabapentin [Neurontin] 300 mg PO TID 01/14/19 [History] Losartan Potassium [Cozaar] 100 mg PO DAILY 01/14/19 [History] Omeprazole [PriLOSEC] 40 mg PO DAILY 01/14/19 [History] Ondansetron HCl [Zofran] 4 mg PO Q8H PRN 01/14/19 [History] PARoxetine HCl [Paroxetine HCl] 40 mg PO DAILY 01/14/19 [History] Ranitidine HCl [Heartburn Relief] 150 mg PO BID 01/14/19 [History] Umeclidinium [place] [Incruse Ellipta] 1 puff PO DAILY 01/14/19 [History] hydrOXYzine HCl [Hydroxyzine HCl] 25 mg PO Q6H PRN 01/14/19 [History] Acetaminophen [Tylenol] 650 mg PO Q6HR PRN tablet 01/15/19 [Rx] Aspirin Enteric Coated [Aspirin EC] 325 mg PO DAILY tablet. 01/15/19 [Rx] Docusate [Colace] 100 mg PO BID capsule 01/15/19 [Rx] Ferrous Sulfate 325 mg PO BIDWM tablet 02/03/19 [Rx] Cefepime HCl/Dextrose, Iso-Osm [Cefepime 2 gm Injection] 2 gm IV Q12H 17 Days #34 mls 02/27/19 [Rx] Vancomycin Oral Soln [Firvanq] 125 mg PO QID 10 Days #40 udc 02/27/19 [Rx] Allergies/Adverse Reactions: Allergy/AdvReac Type Severity Reaction Status Date / Time No Known Allergies Allergy Verified 01/14/19 18:03 Certification: Further, I certify that my clinical findings support that this patient is homebound (i.e. absences from home require considerable and taxing effort and are for medical reasons or druze services or infrequently or short duration when for other reasons) because: Homebound Reason: Patient requires assistance of a person or device to safely leave home Attestation: My signature below is to certify that this patient is under my care and that I, or nurse practitioner, or a physician's bacteriology research assistant working with me, has a [id number] encounter with this patient.
[2019-02-27] MEDS: Famotidine 20 MG TABLET PO SCH ×2 (10:54→21:24)
[2019-02-27] MEDS: Furosemide 20 MG TABLET PO SCH (10:54)
[2019-02-27] MEDS: Aspirin Enteric Coated 325 MG Tablet PO SCH (10:54)
[2019-02-27] MEDS: Gabapentin 300 MG CAPSULE PO SCH ×3 (10:54→21:24)
[2019-02-27] MEDS: Vancomycin Oral Soln 125 MG/2.5 ML UDC PO SCH ×4 (11:18→21:24)
[2019-02-27] MEDS: *HR* HYDROcodone/Acet 5/325 mg TABLET PO PRN (17:07)
[2019-02-28] MEDS: *HR* Heparin 5,000 UNIT/ML VIAL SQ SCH (06:44)
[2019-02-28] MEDS: Cefepime HCl 2,000 MG in Water for inj. (sterile) 20 ML IVP SCH ×2 (06:44→17:18)
[2019-02-28] MEDS: Budesonide/Formoterol 80/4.5 MDI IH SCH (07:11)
[2019-02-28] MEDS: Tiotropium 18 MCG inhalation IH SCH (07:11)
[2019-02-28] MEDS: Aspirin Enteric Coated 325 MG Tablet PO SCH (07:57)
[2019-02-28] MEDS: Gabapentin 300 MG CAPSULE PO SCH ×2 (07:58→14:48)
[2019-02-28] MEDS: Furosemide 20 MG TABLET PO SCH (07:58)
[2019-02-28] MEDS: Famotidine 20 MG TABLET PO SCH (07:58)
[2019-02-28] MEDS: Vancomycin Oral Soln 125 MG/2.5 ML UDC PO SCH ×2 (07:59→12:21)
--- NOTE | 2019-02-28 09:49 | Infectious Disease Progress No ---
ID Progress Note Date of Encounter: 02/28/19 Time of Encounter: 09:47 - Subjective Subjective: Patient seen and examined. No acute events noted overnight. Patient states overall she feels better. Denies fevers, chills, or rigors. Denies chest pain, shortness of breath, or cough. Denies nausea, vomiting, or constipation. Reports 3 stools yesterday that are more formed. Denies abdominal pain or urinary complaints. Denies rash or skin rashes. Denies any pain in her back, joints, or extremities. Pending ECF placement. - Objective CBC & Chem 7: 02/27/19 06:47 02/28/19 12:43 - Exam Vitals: Temp Pulse Resp BP Pulse Ox 98.4 F 79 16 131/80 96 02/28/19 07:12 02/28/19 07:12 02/28/19 07:12 02/28/19 07:12 02/28/19 07:12 Exam: Head: Atraumatic, normal inspection, normocephalic. Eye: EOMI, PERRLA, no scleral icterus noted. ENT: Mucous membranes moist. No odontogenic infection noted. Neck: Normal inspection, no meningismus. Respiratory: Clear to auscultation. No rales, respiratory distress, rhonchi, or wheezes noted. Cardiovascular: Regular rate and rhythm, S1 and S2 audible. No murmurs, rubs, or gallops. GI: Soft, nondistended, normal bowel sounds. Nontender. Extremities: No joint swelling, pedal edema, or tenderness noted. Previous PICC line site noted to the right upper inner arm without erythema. Scabbed lesion noted overlying the previous insertion site. No drainage, fluctuance, or lymphangitis noted. Right hip surgical site well-healed without surrounding erythema, warmth, tenderness, or drainage. No fluctuance appreciated. Neurological: Alert, oriented 3, no focal deficits. Psychiatric: normal affect, normal mood. Skin: Dry, intact, warm. Normal color. No rashes. - Assessment and Plan (1) Sepsis Status: Resolved The patient had 3 sepsis criteria. Likely secondary to C. difficile. Afebrile overnight. WBC normal. Tachycardia has resolved. Blood cultures drawn 02/24/19 at [facility] are no growth to date 2 sets. Blood cultures drawn here 02/24/19 are no growth to date 2 sets. Qualifiers: Sepsis type: sepsis due to unspecified organism Qualified Code(s): A41.9 - Sepsis, unspecified organism SNOMED Code(s): 09688049 (2) C. difficile diarrhea Status: Suspected Likely secondary to recent antibiotic use. Additionally, the patient was also recently in the halfway. C. difficile PCR positive, but the EIA was negative. However, the patient's clinical picture is consistent with active C. difficile infection. Non-severe. No imaging of the abdomen has been done, however, the patient's abdominal exam is benign and without evidence of toxic megacolon or ileus, and she does not have hypotension. Clinically improved. Currently on oral vancomycin. SNOMED Code(s): 6965484635688 (3) Metabolic encephalopathy Status: Resolved Likely secondary to sepsis. CT head negative. Appears improved. Continue to monitor closely. SNOMED Code(s): 79999097 (4) Diarrhea Status: Acute Likely secondary to recent antibiotic use. Additionally, the patient was also recently in the halfway. C. difficile PCR positive, but the EIA was negative. However, the patient's clinical picture is consistent with active C. difficile infection. Clinically improved. Per that patient, stools are less frequent and more formed. Currently on oral Vancomycin. Qualifiers: Diarrhea type: unspecified type Qualified Code(s): R19.7 - Diarrhea, unspecified SNOMED Code(s): 02154592 (5) Elevated transaminase level Status: Resolved Etiology: Unclear. Sepsis versus other. Improved. Continue to trend. Abdominal exam benign. Liver ultrasound negative for acute abnormality. Improved. SNOMED Code(s): 415466564, 268111610 (6) PICC line infection Status: Ruled-out Per [place] ER documentation, there was redness and drainage from the insertion site. PICC line discontinued in the emergency department. Physical exam not impressive for cellulitis at this time. Blood cultures are no growth to date no far, but is not appear that there were any drawn from the PICC line prior to it being removed. Called [facility] and confirmed that cultures remain negative. Ruled out. Qualifiers: Encounter type: initial encounter Qualified Code(s): T80.219A - Unspecified infection due to central venous catheter, initial encounter SNOMED Code(s): 607468049, 741815889 (7) Surgical site infection Status: Chronic Location: Right hip. Likely secondary to recent surgery. Causative organism: Pseudomonas aeruginosa. CT of the right hip showed a large rim-enhancing fluid collection containing gas and her deep to the surgical staple line measuring 3.8 x 5.4 x 22 cm. This extends through the surgical wound of the adjacent fashion with fluid also present within the trochanteric bursa, findings highly suspicious for abscess. Orthopedics consulted. Status post right revision femur of hip hemiarthroplasty 01/30/19. Intraoperative cultures as above. Anaerobic cultures were negative. Initially discharged on IV cefepime and oral Flagyl. Oral Flagyl discontinued in the office last week since anaerobic cultures were negative. Currently on IV cefepime. Planned to treat through 03/13/19 with IV antibiotics. SNOMED Code(s): 39687252, 014119305 (8) Neuropathy Status: Chronic SNOMED Code(s): 182397338 (9) COPD (chronic obstructive pulmonary disease) Status: Chronic Qualifiers: COPD type: emphysema Emphysema type: unspecified Qualified Code(s): J43.9 - Emphysema, unspecified SNOMED Code(s): 51344745 (10) History of hemiarthroplasty of right hip Status: Chronic Status post right hip hemiarthroplasty December 2018. SNOMED Code(s): 007691368 (11) HTN (hypertension) Status: Chronic Qualifiers: Hypertension type: essential hypertension Qualified Code(s): I10 - Essent ial (primary) hypertension SNOMED Code(s): 51537544 - Recommendations Recommendations: Await blood cultures to finalize. Continue to trend LFTs. Continue cefepime 2 g IV every 12 hours. Continue PO Vancomycin 125mg QID. Duration of treatment depends on the clinical picture. 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 Will need to continue PO Vancomycin for at least 14 days, but will likely continue for the duration of IV antibiotic therapy as well. Monitor renal function and for drug toxicity and dose adjust antibiotics. C. diff precautions per hospital policy. Will need weekly CBC, BUN/Cr, ESR, CRP. Will need weekly midline care per protocol. Follow up with ID 03/04/19 at 1600. Consult Discharge Plan - Plan Instructions: Vancomycin (By mouth), Cefepime (Injection), Sepsis (DC) Referrals: Shelly Virgen, ASSISTANT DIRECTOR OF ADMISSIONS [Advanced Practice Nurse] - 03/04/19 4:00 pm NONE,PCP [Primary Care Provider] - Prescriptions: Cefepime HCl/Dextrose, Iso-Osm [Cefepime 2 gm Injection] 2 gm IV Q12H 17 Days #34 mls Vancomycin Oral Soln [Firvanq] 125 mg PO QID 10 Days #40 udc - Attending Attestation I have personally performed a face to face evaluation on this patient. I have reviewed and agree with the care plan. History and Exam by me shows: Assessment and plan: 1.Sepsis 2.Metabolic encephalopathy 3.Diarrhea 4.Elevated transaminase level 5.PICC line infection Recommendations: Continue cefepime 2 g IV every 12 hours. Continue PO Vancomycin 125mg QID. Duration of treatment depends on the clinical picture. 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 Will need to continue PO Vancomycin for at least 14 days, but will likely continue for the duration of IV antibiotic therapy as well. Monitor renal function and for drug toxicity and dose adjust antibiotics. C. diff precautions per hospital policy. Will need weekly CBC, BUN/Cr, ESR, CRP. Will need weekly midline care per protocol. Follow up with ID 03/04/19 at 1600.
--- NOTE | 2019-02-28 12:28 | Event Note ---
Date of Encounter: 02/28/19 Time of Encounter: 12:24 I have seen and evaluated the patient at bedside. Patient reports feeling well, but reports being worried because she does not know where she is going to go and her is in the hospital as well. Reported having 1 BM of more formed stool today. Denies abdominal pain, nausea or vomiting. Physical exam: Vitals: Reviewed. General: Alert and oriented x4. In no distress Cardiovascular: RRR, normal S1 & S2, no rubs, murmurs or gallops. Lungs: CTA b/l, no wheezes or crackles. Abdomen: Soft, non-tender, no rigidity. NABS in all 4 quadrants Extremities: No edema Neurological: No focal neurological abnormalities Rest of the physical exam is non contributory Assessment: 1. C.diff colitis 2. Possible CVC infection 3. Sepsis 4. HNT 5. Hx of hemiarthoplasty of the right hip 6. VTE prophylaxis Plan continue current antibiotics and management pending placement to ECF for completion of IV antibiotics treatment. Urine culture resulted faxed from an OSH, US grew enterococus VRE. patient asymptomatic. discussed with ID, no need for treatment. as patient asymptomatic and clinically back to her baseline.
[2019-02-28 14:14] LABS: BUN/Creatinine Ratio 11 (6-26); Blood Urea Nitrogen 6 mg/dL (8-23); Calcium 8.8 mg/dL (8.6-10.3); Carbon Dioxide 29 mEq/L (23-29); Chloride 100 mEq/L (98-107); Glucose 119 mg/dL (70-105); Osmolality,Calculated 293 (280-300); Potassium 3.1 mEq/L (3.5-5.1); Sodium 142 mEq/L (136-145); eGFR For African Americans > 60 (> 60); eGFR For Non-African Americans > 60 (> 60)
[2019-02-28] MEDS: *HR* HYDROcodone/Acet 5/325 mg TABLET PO PRN (14:48)
[2019-02-28 16:13] VITALS: BP 155/89
--- NOTE | 2019-03-01 12:05 | Event Note ---
Date of Encounter: 02/25/19 Time of Encounter: 12:00 Courtesy visit as patient was scheduled to see Dr. Loomis today in office Patient is s/p Right Revision femur of hip Hemiarthroplasty [Infected right hip hemiarthroplasty] 01/30/19 Dr. Loomis. Patient's initial leslye was Right hip hemiarthroplasty [Right displaced femoral neck fracture] 01/13/19 Dr Saunders. She is at [facility] for concern re: infected PICC line. Patient's right hip incision is healing appropriately with no disruption, erythema or drainage. Minimal tenderness to right hip No calf tenderness, erythema, or warmth Knee and ankle motion intact Neurovascularly intact RLE. Encouraged hip precautions x 6 total weeks postoperatively Keep incision clean and dry Follow up as scheduled with [facility] outpatient office Please reach out with any concerns or questions regarding patient's right hip or other orthopedic concerns.
== END 2019-02-28 18:03 | DRG 871 ==
LOC: 2ANU → SUATTDRO 11:32
PROVIDERS: ADMIT Internal Medicine; ATTEND Internal Medicine